=== PATIENT | male | born 1955 | race Caucasian/White ===

== ENCOUNTER 2025-01-08 21:03 | Inpatient (IN) | payer MEDICARE, SELFPAY ==
[2025-01-08] VITALS (9 sets, daily range): BP systolic 106–134; BP diastolic 85–96; BMI 25.4
--- NOTE | 2025-01-08 16:51 | ED.GENMED ---
History of Present Illness
General
Chief Complaint: Breathing Problem
Time Seen by Provider: 01/08/25 16:43
History of Present Illness
History of Present Illness:
Patient presents to the emergency department with shortness of breath. Symptoms started around 2 PM. He felt his oxygen tank was no longer working. States he has a history of severe emphysema and he is chronically on 3 to 4 L oxygen. States he
was feeling very lightheaded and dyspneic. Denies any chest pain. No leg swelling. Denies fevers or chills productive cough.
Phy Exam
Physical Exam
Physical Exam:
GENERAL APPEARANCE: NAD, disheveled
EYES lids/conjunctiva normal
EARS/NOSE/THROAT Mucous membranes moist, uvula midline without oral pharyngeal erythema, exudate or swelling
HEAD/NECK normocephalic atraumatic, neck is supple.
RESPIRATORY lungs clear to auscultation though very diminished breath sounds bilaterally. Saturating well on 5 L nasal cannula
CARDIAC Regular tachycardia, no edema.
ABDOMINAL Soft, ND/NT. No pulsatile masses on exam, rebound tenderness, Greene sign or pain over Mcburney's point.
MUSCLES/EXTREMITIES No abnormal range of motion, no swelling.
SKIN Warm, pink and dry. No rashes
NEUROLOGICAL Speech is clear and appropriate. Normal level of consciousness. 5/5 strength in all extremities.
PSYCH Normal mood and affect. Judgement/competence is appropriate
Scores
Heart Failure Risk
Heart Failure Risk Score: Not Applicable
Course
Orders/Labs/Results
Orders:
Orders
01/08/25 Dinner
Regular
At Your Request: Limited Participation
01/08/25 16:39
Electrocardiogram (*1) Urgent
Reason for Study: Shortness of Breath
EKG- Treatment ONCE
CXR [CR Chest Portable - 1 View] Urgent
Comment:
Reason For Exam: sob
Reason Study Needs to be Portable: Patient Unstable
01/08/25 16:46
COVID-19 Antigen Urgent
Source: Nasal Swab
Complete Blood Count/With Diff Urgent
Comprehensive Metabolic Panel Urgent
Lipase Urgent
Comment: ADD ON
Influenza A+B Rapid Molecular Urgent
HUGO Source: Nasal Swab
Specimen Description:
01/08/25 16:51
Ipratropium/Albuterol Sulfate [Duoneb] 3 ml INH R NOW ONE
01/08/25 16:55
D-Dimer Urgent
01/08/25 17:30
Add On- LAB Urgent
Tests Added?: lipase
01/08/25 17:59
CT Chest PE Study Urgent
Reason For Exam: sob, +ddimer
01/08/25 19:02
MethylPREDNISolone PF [Solu-Medrol Pf] 125 mg IV NOW STA
01/08/25 19:16
Azithromycin 500 mg/250 ml [Zithromax Infusion] 500 mg in 250 ml IV NOW
CefTRIAXone [Rocephin] 1,000 mg IV NOW STA
01/08/25 19:29
Lactate Level [Lactic Acid] Urgent
Blood Culture Q30M
HUGO Source: Blood/Venous
Specimen Description:
01/08/25 19:31
Blood Culture Q30M
HUGO Source: Blood/Venous
Specimen Description:
01/08/25 19:45
Sterile Water [Sterile Water For Injection] 10 ml .ROUTE .STK-MED ONE
01/08/25 20:45
Admit/Transfer Patient As Directed
Co-Sign Provider:
Level of Care: Inpatient admission
Assign to:: Telemetry
Physician / Group: denisha jesus
Diagnosis: RUl pna, hypoxia, acute/chronic abd pain
Reason for Telemetry: Arrhythmia
Date to Stop Telemetry: 01/11/25
Time to Stop Telemetry: 11:00
Reason for Hospitalization: RUl pna, hypoxia, acute/chronic abd pain
Expected length of stay greater than two midnights?: Yes
ELOS- Estimated Length of Stay in days: 4
I certify the patient meets the requirements for IP care: Yes
Code Status As Directed
Resuscitation Status: Full Code
01/08/25 20:53
PRN Pain Medication Management As Directed
May give lesser potent ordered pain med per pt: Yes
preference::
Protocol:: Medication orders for pain may be administered in a
manner that supports deferring to patient preference
when the pt is:
- Requesting an ordered lesser potent pain medication.
Least to most potent pain medications are defined
as: acetaminophen < NSAID < tramadol < opioids
(morphine, oxycodone, hydromorphone).
- Requesting a lesser dose of the same medication IF
ORDERED.
- Requesting a less intrusive route of administration
if both routes are prescribed by the provider (PO <
IV).
01/08/25 21:00
0.9% Sodium Chloride 1000 ml [Nss] 1,000 ml IV 80 mls/hr
01/08/25 21:49
Acetaminophen [Tylenol] 650 mg PO Q4HPRN PRN
Ipratropium/Albuterol Sulfate [Duoneb] 3 ml INH R Q4HPRN PRN
01/08/25 21:49
Activity As Directed
Activity Level: As Tolerated
Intake/ Output As Directed
Frequency: Per unit guidelines
Vital Signs As Directed
Frequency: Per unit guidelines
Weight As Directed
Frequency: Daily
Incentive Spirometry [Rx Incentive Spirometry] [RESP] Routine
Frequency: q1h while awake
O2 Therapy [RESP] Routine
Nasal Cannula Liter Flow: 4 LPM
Titrate/Wean O2 to maintain O2 sat greater than (%): 90
Special Instructions: Patient on chronic 4 L
Pulse Ox/spot Check [RESP] Routine
Quantity: 1
Rx Incentive Spirometry [RESP] Routine
Frequency: q1h while awake
Ot Eval And Treat Routine
Pt Eval And Treat Routine
Activity Level: As Tolerated
DX Deep Vein Thrombosis Video Routine
01/09/25 06:00
Abdomen/Pelvis w Contrast CT [CT Abd/pelvis W Iv Cont] IN AM
Comment:
Reason For Exam: acute /chronic abd pain
Complete Blood Count/With Diff IN AM
Comprehensive Metabolic Panel IN AM
Hgba1c [Glycohemoglobin (HgbA1c)] IN AM
01/09/25 18:00
Enoxaparin Sodium [Lovenox] 40 mg SC QPM
01/09/25 20:00
Azithromycin 500 mg/250 ml [Zithromax Infusion] 500 mg in 250 ml IV Q24H
CefTRIAXone [Rocephin] 1,000 mg IV Q24H
01/10/25 06:00
Complete Blood Count/With Diff IN AM
Comprehensive Metabolic Panel IN AM
01/11/25 06:00
Complete Blood Count/With Diff IN AM
Comprehensive Metabolic Panel IN AM
01/11/25 11:00
DC Protocol for Telemetry ONCE
01/12/25 06:00
Complete Blood Count/With Diff IN AM
Comprehensive Metabolic Panel IN AM
Abnormal Lab Results
01/08/25 01/08/25
16:46 16:55
WBC 11.8 H 10^3/uL
(4.8-10.8)
RBC 4.65 L 10^6/uL
(4.70-6.10)
MCV 94.8 H fL
(80.0-94.0)
MCHC 30.4 L g/dL
(33.0-37.0)
Absolute Neuts (auto) 10.5 H 10^3/uL
(1.4-6.5)
Absolute Lymphs (auto) 0.5 L 10^3/uL
(1.2-3.4)
Neutrophils % 89.3 H %
(42.2-75.2)
Lymphocytes % 3.9 L %
(20.5-51.1)
D-Dimer 1.16 H ug/mlFEU
(0.00-0.50)
Chloride 91 L mmol/L
(98-107)
Carbon Dioxide 41 H mmol/L
(22-30)
Glucose 197 H mg/dl
(70-99)
01/08/25 16:46
01/08/25 16:46
Vital Signs
Initial and Last Documented VS:
Initial Vital Signs
Pulse Resp Pulse Ox
118 24 99
01/08/25 16:40 01/08/25 16:40 01/08/25 16:40
Last Documented Vital Signs
Temp Pulse Resp BP Pulse Ox
98.3 F 105 18 112/86 96
01/08/25 21:43 01/08/25 21:43 01/08/25 21:43 01/08/25 21:43 01/08/25 21:43
*Pulse Oximetry
SaO2: 99
Oxygen Mode of Delivery: Non-rebreather mask
Patient hypoxic: yes
*Critical Care Note
Total Time (30-74mins, 75-104mins- exclusive of procedures): Not Applicable
ED Attending Note
ED Attending Note
ED Attending Note:
hx of severe emphysema on 4L NC O2 at baseline
presents with worsening shortness of breath, found to be 64% on 4L NC
workup notable for CTA negative for PE, but showing pneumonia in the RUL
given nebs, solumedrol and ceftriaxone/azithro for community acquired pneumonia
-
Portions of this chart may have been created with voice recognition software.� Occasional wrong word or��sound alike� substitutions may have occurred due to the inherent limitations of voice recognition software.
Discharge Plan
Departure
Patient Disposition: Admit
Date of Disposition: 01/08/25
Time of Disposition: 20:02
Presentation/result/management discussed w/ accepting MD/DO: Hospitalist
Discharge Problem:
Emphysema lung, CAP (community acquired pneumonia)
Interventions
Interventions:
*Risk Screen - Suicide Last Done: 01/08/25 22:29
*General Assessment Last Done: 01/08/25 21:44
*Neglect/Abuse Screening Last Done: 01/08/25 16:40
*ED- Fall Risk Assessment Last Done: 01/08/25 21:44
*ED COVID-19 Vaccine History Last Done: 01/08/25 22:29
*ED Influenza Vaccine History Last Done: 01/08/25 16:40
*Nursing Disposition Last Done: 01/08/25 21:43
ED- Cardiac Assessment Last Done: 01/08/25 16:52
ED- Pulmonary Assessment Last Done: 01/08/25 16:52
Discharge Date and Time
Discharge Date/Time: 01/08/25 21:45
[2025-01-08] MEDS: DUONEB 3 ML INH (17:02)
[2025-01-08 17:13] LABS: COVID-19 Antigen Negative (Negative)
[2025-01-08 17:17] LABS: ALT (SGPT) 23 U/L (0-50); AST (SGOT) 30 U/L (17-59); Albumin 4.0 g/dl (3.5-5.0); Alkaline Phosphatase 72 U/L (38-126); Blood Urea Nitrogen 17 mg/dl (9-20); Calcium 9.3 mg/dl (8.4-10.2); Chloride 91 mmol/L (98-107); Estimated Creatinine Clearance 98 ml/min; Glucose 197 mg/dl (70-99); Potassium 4.4 mmol/L (3.5-5.1); Sodium 138 mmol/L (135-145); Total Protein 7.3 g/dl (6.3-8.2); eGFR > 60.00
[2025-01-08 17:28] LABS: Carbon Dioxide 41 mmol/L (22-30)
[2025-01-08 17:31] LABS: Hematocrit 44.1 % (39.0-52.0); Hemoglobin 13.4 g/dL (13.0-18.0); Mean Corp Hgb Conc. 30.4 g/dL (33.0-37.0); Mean Corpuscular Volume 94.8 fL (80.0-94.0); Nucleated Red Blood Cells % 0 % (-); Platelet Count 203 10^3/uL (130-400); Red Cell Dist. Width 13.1 % (11.5-14.5)
[2025-01-08 17:47] LABS: D-Dimer 1.16 ug/mlFEU (0.00-0.50)
[2025-01-08 17:53] LABS: Lipase 45 U/L (23-300)
[2025-01-08] MEDS: SOLU-MEDROL PF 125 MG IV (19:13)
[2025-01-08] MEDS: ZITHROMAX INFUSION 250 IV (19:48)
[2025-01-08] MEDS: ROCEPHIN 1000 MG IV (19:48)
--- NOTE | 2025-01-08 20:18 | HPS.HSE ---
Addendum entered and electronically signed by Deidra Alfaro MD 01/08/25 21:21:
This is an addendum to H&P written by Nelida Bolanos on 01/08/2025. �Patient seen and examined independently with SQL SS[employer] DEVELOPER.
69-year-old male past medical history of severe COPD on 4 L chronic oxygen, hypertension, HLD, presenting with shortness of breath and hypoxic to 64% today. �He was feeling lightheadedness. �No chest pain. �No leg swelling. �No fevers or chills. �No
cough.
Patient also having severe left to right abdominal pain for several months. �Patient unable to get at the house to get evaluated. �Has been having intermittent constipation
Being evaluated for [facility] transplant. �Colonoscopy was attempted 3 times but patient was never properly evacuated so lung transplant could not be pursued.
Vital signs showed tachycardia up to 113. �Hypoxic requiring 6 L oxygen
Labs show leukocytosis 11.8.
Chest x-ray shows nodular density within the right lung peribronchial thickening suggesting small airway pneumonitis/bronchitis. �CT PE shows multiple small nodular opacities within the anterior aspect of the right upper lobe which is likely
pneumonia. �Severe changes of emphysema. �Volume loss of his left hemithorax with bands of scarring/chronic atelectasis of left lung.
Patient with pneumonia. �Ceftriaxone/azithromycin. �Given steroids and DuoNebs in the emergency room but will hold off on further steroids.
Check CT abdomen pelvis to evaluate for chronic abdominal pain with IV contrast in the morning since he already received IV contrast.
Original Note:
Family Physician
-
Family Physician: * NONE
Chief Complaint
-
Hypoxia
History of Present Illness
69-year-old male complaining of shortness of breath that started around 2 PM this afternoon after walking to the bathroom. He reports he started to feel dizzy so he sat down on the toilet. He reports feeling very lightheaded. He is on chronic 3
to 4 L of oxygen due to severe emphysema. His states he has been out of his Breztri inhaler due to needing a prior Auth but has been unable to get out of his apartment to see his doctor. He reports he has been so weak he has been unable to
get out of his third floor condo for the last close to 1 year. He was following at [facility] transplant but needed colonoscopy. He had 3 attempts, but his bowel was not cleaned out so they were unable to clear him for transplant surgery. He
states he has been having abdominal pain in the left lower quadrant radiating to his right quadrant anytime he walks or moves this is going on for months. He also reports some changes with bowels including constipation on and off. He denies weight
loss but states he has had weight gain due to inactivity. He was noted to be 64% on 4 L on arrival in the ER. He denies fever, chills, sore throat, cough, headache, chest pain, palpitations,nausea, vomiting, diarrhea, urinary symptoms. He has
past medical history of chronic severe emphysema 3 to 4 L dependent, HTN, HLD
Medical History
Past Medical History
Past Medical History: Reports Other
Additional Past Medical History:
chronic severe emphysema 3 to 4 L dependent
HTN
HLD
Past Surgical History: Reports None
Social History
Tobacco: Former Smoker (40 years 2 to 3 pack a day quit 7 years ago)
Alcohol: None
Drug: None
Personal:
Living: With Family ( brad)
Employment: Disabled
Family History
Family History: Not pertinent
Allergies / Home Medications
Allergies reflects when Allergies were last updated in [employer].
Home Medications with original date entered in [employer]
Allergy/Medication List:
Allergies
Allergy/AdvReac Type Severity Reaction Status Date / Time
ibuprofen Allergy Anaphylaxis Verified 01/08/25 20:59
Home Medications
Breztri Aerosphere 2 puff inhalation DAILY 01/08/25
albuterol sulfate 90 mcg/actuation aerosol inhaler 90 mcg inhalation DAILY 01/08/25
diltiazem HCl 240 mg capsule,extended release 24 hr 240 mg PO DAILY 01/08/25
hydrochlorothiazide 12.5 mg tablet 12.5 mg PO DAILY 01/08/25
potassium chloride 10 meq PO DAILY 01/08/25
rosuvastatin 10 mg tablet 10 mg PO HS 01/08/25
Review of Systems
-
History Source: Patient and Family ( brad along with friend at bedside)
A 12 point ROS was completed and negative except as noted: Yes
Constitutional: Reports Weight Gain and Fatigue; Denies Fever or Chills
EENT: Denies Sore Throat or Runny Nose
Respiratory: Reports Trouble Breathing; Denies Cough or Hemoptysis
Cardiac: Denies Chest Pain, Diaphoresis, Palpitations or Syncope
Abdomen/GI: Reports Abdominal Pain (On and off left to right lower quadrant); Denies Nausea, Vomiting, Diarrhea, Constipated, Bloody Stools or Black Stools
: Denies Dysuria, Frequency, Flank Pain, Incontinence or Difficulty Voiding
Musculoskeletal: Denies Joint Pain or Edema
Skin: Denies Itching or Rash
Neurological: Denies Dizzy or Headache
Endocrine: Reports No Symptoms
Hematologic/Lymphatic: Reports No Symptoms
Psych: Reports Calm
Physical Exam
Vital Signs
Vital Signs
Pulse Resp BP Pulse Ox
107 22 127/85 94
01/08/25 19:45 01/08/25 19:45 01/08/25 19:00 01/08/25 19:45
Physical Exam
General: Conversant; No Fever or Chills
HEENT: NormoCephalic, Anicteric, PERRLA, [place] Conjunctivae, No Ptosis and Oxygen (6 L)
Respiratory: Rhonchi (Right upper lung otherwise diminished bilaterally); No Wheezes or Rales
Cardiac: S1/S2 and Regular Rhythm; No Murmur, Rub, Gallop or Peripheral Edema
Breast: Deferred by me
GI: Soft, Non Distended, Normal Bowel Sounds, Tender (Across left to right abdomen, small ventral soft hernia present nontender) and No Hepatosplenomegaly
Rectal: Deferred by Provider
Genito-urinary: Deferred by me
Musculoskeletal: No Clubbing, No Cyanosis and No Edema
Skin: Warm and Dry; No Rash or Jaundice
Neuro: AO x 3, No Motor Deficits, Nonfocal/grossly intact, Cranial Nerves Intact and No Sensory Deficits; No Slurred Speech, Facial Droop, Tremors or Sedated
Psych: Calm
Laboratory Results
-
01/08/25 16:46
01/08/25 16:46
Laboratory Results
Lactic Acid 1.2 mmol/L (0.7-2.0) 01/08/25 19:29
Total Bilirubin 1.3 mg/dl (0.2-1.3) 01/08/25 16:46
AST 30 U/L (17-59) 01/08/25 16:46
ALT 23 U/L (0-50) 01/08/25 16:46
Alkaline Phosphatase 72 U/L (38-126) 01/08/25 16:46
Lipase 45 U/L (23-300) 01/08/25 16:46
Impression/Plan
-
Impression/plan:
Admit to [facility]
#Acute Hypoxic respiratory failure secondary to Right upper lobe pneumonia with Severe Emphysema on chronic 4 L nasal cannula
#Former smoker 40-year 2 to 3 pack a day quit 7 years ago
Presented to ER 64% on 4 L nasal cannula currently 6 L nasal cannula satting at 94%
WBC 11.8 with left shift, HR 107, BP 127/85
COVID influenza negative
Was given steroids in ER will hold on further steroids due to no wheezing, cough or emphysema exacerbation
- Blood cultures x 2
- IV Rocephin/Zithromax
-Continue DuoNebs as needed
-Incentive spirometry
- Follow CBC, CMP
CT PE study: Negative for pulmonary embolism
severe changes of emphysema
multiple small nodular opacities anterior aspect right upper lobe likely pneumonia
gastric fundal diverticulum left upper quadrant, fatty infiltration liver
EKG sinus tach 160 bpm, QTc 439 MS left posterior fascicular block no previous EKGs
#Acute on chronic abdominal pain
Will check CT abdomen pelvis with IV contrast in a.m. due to receiving IV contrast for CT PE this evening
-Will give IV NSS
-No current concerns for an acute abdomen
#Mild hyperglycemia
Blood sugar 197, check HgbA1c
#HTN
BP stable 127/87
-Continue Cardizem to 40 mg daily, HCTZ 12.5 mg daily, KCl 10 mEq
#HLD
Continue Crestor 10 mg at bedtime
DVT prophylaxis
Subcu Lovenox
Full code
--- NOTE | 2025-01-08 22:15 | PTCARENOTE ---
Pt arrived to room 418-02. Pt transferred from stretcher to bed. Pt AAOx3, VSS. Pt on 6L O2. Pt oriented to room, call hernández placed within reach.
[2025-01-08] MEDS: NSS 1000 IV (22:43)
[2025-01-09] VITALS (7 sets, daily range): BP systolic 115–146; BP diastolic 66–93; O2SAT 86; BMI 25.4
[2025-01-09 08:07] LABS: Hematocrit 42.0 % (39.0-52.0); Hemoglobin 12.5 g/dL (13.0-18.0); Mean Corp Hgb Conc. 29.8 g/dL (33.0-37.0); Mean Corpuscular Volume 97.7 fL (80.0-94.0); Nucleated Red Blood Cells % 0 % (-); Platelet Count 191 10^3/uL (130-400); Red Cell Dist. Width 13.0 % (11.5-14.5)
[2025-01-09 08:35] LABS: ALT (SGPT) 21 U/L (0-50); AST (SGOT) 31 U/L (17-59); Albumin 3.7 g/dl (3.5-5.0); Alkaline Phosphatase 64 U/L (38-126); Blood Urea Nitrogen 18 mg/dl (9-20); Calcium 9.0 mg/dl (8.4-10.2); Chloride 91 mmol/L (98-107); Estimated Creatinine Clearance 98 ml/min; Glucose 129 mg/dl (70-99); Potassium 4.6 mmol/L (3.5-5.1); Sodium 137 mmol/L (135-145); Total Protein 6.5 g/dl (6.3-8.2); eGFR > 60.00
[2025-01-09] MEDS: NSS 1000 IV (09:01)
[2025-01-09 09:19] LABS: Carbon Dioxide 40 mmol/L (22-30)
[2025-01-09 10:53] LABS: Glycohemoglobin (HgbA1c) 5.4 % (4.0-5.6)
[2025-01-09] MEDS: OMNIPAQUE 50 ML PO (14:05)
--- NOTE | 2025-01-09 14:25 | CM ---
Patient seen at bedside with physician on . Patient states that he lives in a 3 story condo with his dog and sister. Patient PCP is Dr. Harry and he uses the [facility] in [facility]. Patient states that he has home O2 from [facility]. Patient is
on 3.5 liters/ 4 liters when walking. Patient has not been able to go out of the home to follow up at PCP care. CM will continue to follow for discharge planning needs.
Plan; home with VN; watch for increase in home O2 needs vs SNF
--- NOTE | 2025-01-09 14:30 | CON.PUL ---
Consultation
Consultation Request
Date/Time Consultation Requested: 01/09/25
Date/Time Consultation Performed: 01/09/25
Performing Provider: Francoise
Reason for Consultation: Hypoxemia
Medical History
-
History of Present Illness:
69-year-old male past medical history of severe COPD on 4 L chronic oxygen, hypertension, HLD, presenting with shortness of breath and hypoxic to 64% today. �He was feeling lightheadedness. �Patient also having severe left to right abdominal pain
for several months. �Patient unable to get at the house to get evaluated. �Has been having intermittent constipation.
Being evaluated for [facility] transplant. �Colonoscopy was attempted 3 times but patient was never properly evacuated so lung transplant could not be pursued. He was last seen about 1-2 years ago.
In ER, vital signs showed tachycardia up to 113. �Hypoxic requiring 6 L oxygen. Labs show leukocytosis 11.8.
Chest x-ray shows nodular density within the right lung peribronchial thickening suggesting small airway pneumonitis/bronchitis. �CT PE shows multiple small nodular opacities within the anterior aspect of the right upper lobe which is likely
pneumonia. �Severe changes of emphysema. �Volume loss of his left hemithorax with bands of scarring/chronic atelectasis of left lung.
Patient with pneumonia. �Ceftriaxone/azithromycin. �Given steroids and DuoNebs in the emergency room.
Past Medical History
Past Medical History: Other (see list below)
Social History
Tobacco: Former Smoker
Alcohol: None
Drug: None
Family History
Family History: Reviewed & Not Pertinent
Allergies / Home Medications
Allergies
Allergy/AdvReac Type Severity Reaction Status Date / Time
ibuprofen Allergy Anaphylaxis Verified 01/08/25 20:59
Home Medications
�Medication �Instructions �Recorded �Confirmed �Last Taken �Type
Breztri Aerosphere 2 puff inhalation DAILY 01/08/25 01/08/25 Unknown History
Lung/Breathing Issues
albuterol sulfate 90 mcg/actuation 90 mcg inhalation DAILY 01/08/25 01/08/25 01/08/25 10:00 History
aerosol inhaler Lung/Breathing Issues
diltiazem HCl 240 mg 240 mg PO DAILY Blood Pressure 01/08/25 01/08/25 01/08/25 09:00 History
capsule,extended release 24 hr
hydrochlorothiazide 12.5 mg tablet 12.5 mg PO DAILY Blood Pressure 01/08/25 01/08/25 01/08/25 09:00 History
potassium chloride 10 meq PO DAILY Supplement 01/08/25 01/08/25 01/08/25 09:00 History
rosuvastatin 10 mg tablet 10 mg PO HS High Cholesterol 01/08/25 01/08/25 01/07/25 21:00 History
Review of Systems
-
History Source: Patient
All other systems: Negative unless noted
Vitals / Labs / Diagnostic Testing
Vital Signs
Temp Pulse Resp BP Pulse Ox
97.7 F 106 17 132/93 97
01/09/25 11:49 01/09/25 11:49 01/09/25 11:49 01/09/25 11:49 01/09/25 11:49
Lab Data
01/09/25 07:29
01/09/25 07:29
Microbiology
01/08/25 16:46 Nasal Swab Influenza Types A & B (MIRIAM) - Final
Negative for Influenza A & B, NAAT
Negative results must be combined with clinical observations
and patient history.
Nucleic Acid Amplification test (NAAT)performed on the
[employer] platform.
Diagnostic Testing:
Physical Exam
-
HEENT: Normocephalic, Anicteric and Moist Mucous Membranes
Cardiovascular: S1/S2 and Regular Rhythm
Respiratory: Clear (poor air movement, decreased BL overall) and Non-Labored Respirations
GI: Soft, Non Distended and Non Tender
Neurology: Awake, Alert, Oriented and No Motor Deficits
Skin: Warm, Dry and Good Color
General: Respiratory Distress (mild-mod, SOB with poor air movement) and Other (NAD)
Assessment
-
69-year-old male past medical history of severe COPD on 4 L chronic oxygen, hypertension, HLD, presenting with shortness of breath and hypoxic to 64% today. �He was feeling lightheadedness. �Patient also having severe left to right abdominal pain
for several months. �Patient unable to get at the house to get evaluated. �Has been having intermittent constipation.
Being evaluated for [facility] transplant. �Colonoscopy was attempted 3 times but patient was never properly evacuated so lung transplant could not be pursued. He was last seen about 1-2 years ago. In ER, vital signs showed tachycardia up to 113.
�Hypoxic requiring 6 L oxygen. Labs show leukocytosis 11.8. Chest x-ray shows nodular density within the right lung peribronchial thickening suggesting small airway pneumonitis/bronchitis. �CT PE shows multiple small nodular opacities within the
anterior aspect of the right upper lobe which is likely pneumonia. �Severe changes of emphysema. �We are consulted for evaluation.
Acute on chronic hypoxemia, baseline use of 4L--placed on 6L
Severe end stage COPD/Emphysema, evaluated at [facility] for transplant
AE COPD
Possible PNA
Sinus tachycardia
Acute on chronic SOB
Met alkalosis, bicarb 40
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
Former smoker, 1PPD for 20 years then 2PPD for 20 more years, quit 5-10 years ago (total PY = 60)
CAD, minimal in 1 artery per patient during transplant w/u, no records
HTN
HLD
Plan
Hypoxemia noted on arrival, O2 tom 60s, he is on baseline use of 4L, placed on 6L
Wean as tolerated to baseline
Given met alk, will check ABG to r/o hypercarbia
Prior history of lung disease is noted including severe end stage COPD/emphysema
Last seen at [facility] in the past 1-2 years but did not proceed with further testing to obtain transplant
Will request records
Suspect patient has AE COPD and possible PNA but difficult to tell based on limited lung tissue on CT
The emphysema is so advanced and severe that these findings are limited
Will check PCT and proBNP to r/o
Received IV dose of steroids in ER, will continue daily dosing
Cardiac w/u at [facility] reportedly good
Will view records
H/o HTN, he states he had minimal CAD in 1 artery
Smoking history noted--60 PY, quit 7 years ago
Continued smoking cessation encouraged
We did discuss that if he does not improve with more time on IV abx and steroids that we would need to discuss end of life discussions
If he improves, he would need to see [facility] again as OP to qualify for transplant
Will need outpatient pulmonary evaluation in their office for PFTs and 6MWT
Reviewed with patient, sister and on the phone at bedside
We will follow
Diagnostic Data
Chest X-Ray: 01/08/25- Volume loss of the left hemithorax with shift of the mediastinum toward the left. Bands of increased opacity within the left mid to lower lung, most likely representing scarring and/or chronic atelectasis. The right lung
appears hyperinflated, findings suggestive of emphysema. Subtle small nodular density suggested within the right lung with peribronchial thickening, suggesting the possibility of small airway pneumonitis and/or bronchitis. Mild blunting of the left
lateral costophrenic angle is most likely chronic pleural thickening, although a small left pleural effusion is also possible. Overall cardiac silhouette size appears within normal limits with no findings to suggest pulmonary edema. Mild
dextroconvex scoliosis centered in the midthoracic spine.
CT Scan: CHEST 01/08/25- Examination is negative for pulmonary embolism. Volume loss of the left hemithorax with bands of scarring/chronic atelectasis within the left lung. Severe changes of emphysema. Multiple small nodular opacities within the
anterior aspect of the right upper lobe, which is likely pneumonia. 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 Fatty infiltration the liver.
Echo:
PFT's:
Reports and relevant images were personally reviewed.
Total time spent on this consultation __61__ minutes which includes review of history, physical exam, medications, laboratory data, personal review of imaging, extensive review of outpatient records, discussion with care team and respiratory therapy.
--- NOTE | 2025-01-09 15:05 | W.PN.HOSP.TC ---
Today's Communication/Plan
-
steroids
pulm consult
Assessment / Plan
Assessment / Plan
pt is a 69 year old male
Acute on chronic Hypoxic respiratory failure secondary to Right upper lobe pneumonia with Severe Emphysema on chronic 4 L nasal cannula (Former smoker 40-year 2 to 3 pack a day quit 7 years ago)--covid/flu neg--would start standing IV steroids--cont
rocephin/zmax--follow blood cultures--consult pulm--consider ABG--CT scan without pulm embolism but with severe emphysema (was considered for lung transplant at [facility] but backed out at the last minute)
Acute on chronic abdominal pain--Will check CT abdomen pelvis with IV contrast in a.m. due to receiving IV contrast for CT PE this evening--consider stopping IVF
Mild hyperglycemia--Blood sugar 197, check HgbA1c
Essential HTN--Continue Cardizem to 40 mg daily, HCTZ 12.5 mg daily, KCl 10 mEq
HLD--Continue Crestor 10 mg at bedtime
DVT proph--Subcu Lovenox
code status--Full code
Anticipated Discharge: > 48 hours
Subjective/Interval History
-
Date of Service: January 09, 2025
pt c/o inability to breathe since O2 decreased
Objective Data
-
Labs:
Laboratory Results
01/09/25 01/09/25
07:29 14:32
WBC 5.5
Hgb 12.5 L
Hct 42.0
Plt Count 191
HCO3 Pending
Sodium 137
Potassium 4.6
Chloride 91 L
Carbon Dioxide 40 H
BUN 18
Creatinine 0.8
Glucose 129 H
Calcium 9.0
Total Bilirubin 0.7
AST 31
ALT 21
Alkaline Phosphatase 64
Vital Signs:
max temp for 24 hours
01/08/25
22:50
Temp 99.8 F
Vital Signs
Temp Pulse Resp BP Pulse Ox
97.7 F 106 17 132/93 97
01/09/25 11:49 01/09/25 11:49 01/09/25 11:49 01/09/25 11:49 01/09/25 11:49
Review of Systems
-
All other systems: Reviewed and negative
Respiratory: Reports Trouble Breathing
Physical Exam
-
General: Well Developed, Well Nourished and Respiratory Distress
HEENT: Normocephalic, Atraumatic and Oxygen (4L)
Respiratory: Decreased Breath Sounds (very poor air movement throughout)
Cardiac: Regular Rhythm and S1/S2; Negative Murmur
GI: Soft, Nontender, Nondistended and Normal Bowel Sounds
Musculoskeletal: No Clubbing, No Cyanosis and No Edema
Skin: Warm
Neuro: Awake
[2025-01-09] MEDS: DUONEB 3 ML INH ×2 (15:17→19:32)
--- NOTE | 2025-01-09 16:30 | PTCARENOTE ---
01/09- Patient seen on stretcher c/o SOB. He just transferred onto stretcher from bed to go to a test. His RN states he does have hypoxic episodes upon movement and exertion. Pursed lip breathing, face flushed; GJ=363, POX=79% on NC on 6L.
Changed to Non-rebreather on 15L temporarily. During this time POX=94% with HR=97. +PulsesX4; Cap refill<3sec. Lungs diminished BL. Patient's RN aware. Notified Physician.
[2025-01-09] MEDS: DECADRON 4 MG IV ×2 (17:21→23:26)
[2025-01-09] MEDS: ZITHROMAX 500 MG PO (17:21)
[2025-01-09] MEDS: LOVENOX SC (17:30)
[2025-01-09] MEDS: PULMICORT 0.5 MG INH (19:32)
[2025-01-09] MEDS: STERILE WATER FOR INJECTION 10 ML IV (21:04)
[2025-01-09] MEDS: ROCEPHIN 1000 MG IV (21:05)
[2025-01-10] VITALS (8 sets, daily range): BP systolic 116–151; BP diastolic 73–106; BMI 26.3
[2025-01-10 00:13] LABS: Venous Blood Gas B.E. 14.9 mmol/L (-4 to +4); Venous Blood Gas O2 Sat % 99.8 %
[2025-01-10 00:16] LABS: Venous Blood Gas O2 Therapy O2
[2025-01-10 00:38] LABS: Procalcitonin 0.33 ng/ml (0.0-0.25)
[2025-01-10] MEDS: DUONEB 3 ML INH ×4 (07:19→19:28)
[2025-01-10] MEDS: PULMICORT 0.5 MG INH ×2 (07:19→19:28)
[2025-01-10 07:50] LABS: Hematocrit 37.3 % (39.0-52.0); Hemoglobin 11.2 g/dL (13.0-18.0); Mean Corp Hgb Conc. 30.0 g/dL (33.0-37.0); Mean Corpuscular Volume 95.6 fL (80.0-94.0); Nucleated Red Blood Cells % 0 % (-); Platelet Count 187 10^3/uL (130-400); Red Cell Dist. Width 13.2 % (11.5-14.5)
[2025-01-10] MEDS: DECADRON 4 MG IV ×2 (08:17→16:41)
[2025-01-10] MEDS: ZITHROMAX 500 MG PO (08:17)
[2025-01-10 08:18] LABS: ALT (SGPT) 18 U/L (0-50); AST (SGOT) 30 U/L (17-59); Albumin 3.3 g/dl (3.5-5.0); Alkaline Phosphatase 54 U/L (38-126); Blood Urea Nitrogen 22 mg/dl (9-20); Calcium 8.5 mg/dl (8.4-10.2); Chloride 92 mmol/L (98-107); Estimated Creatinine Clearance 98 ml/min; Glucose 129 mg/dl (70-99); Magnesium 2.1 mg/dl (1.6-2.3); Potassium 4.3 mmol/L (3.5-5.1); Sodium 136 mmol/L (135-145); Total Protein 5.9 g/dl (6.3-8.2); eGFR > 60.00
[2025-01-10 09:37] LABS: Carbon Dioxide 42 mmol/L (22-30)
--- NOTE | 2025-01-10 10:06 | W.PN.PUL3 ---
Today's Communication / Plan
-
Remains the same, no clinical change from yesterday
Continue current treatment as is
We had briefly discussed the severity of his condition but if he clinically deteriorates [facility] discussion would be appropriate
Assessment
-
69-year-old male past medical history of severe COPD on 4 L chronic oxygen, hypertension, HLD, presenting with shortness of breath and hypoxic to 64% today. �He was feeling lightheadedness. �Patient also having severe left to right abdominal pain
for several months. �Patient unable to get at the house to get evaluated. �Has been having intermittent constipation.
Being evaluated for [facility] lung transplant. �Colonoscopy was attempted 3 times but patient was never properly evacuated so lung transplant could not be pursued. He was last seen about 1-2 years ago. In ER, vital signs showed tachycardia up to 113.
�Hypoxic requiring 6 L oxygen. Labs show leukocytosis 11.8. Chest x-ray shows nodular density within the right lung peribronchial thickening suggesting small airway pneumonitis/bronchitis. �CT PE shows multiple small nodular opacities within the
anterior aspect of the right upper lobe which is likely pneumonia. �Severe changes of emphysema. �We are consulted for evaluation.
Acute on chronic hypoxemia, baseline use of 4L--placed on 6L
Severe end stage COPD/Emphysema, evaluated at [facility] for transplant
AE COPD
Possible PNA
Sinus tachycardia
Acute on chronic SOB
Met alkalosis, with chronic hypercarbia noted-compensated
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
Former smoker, 1PPD for 20 years then 2PPD for 20 more years, quit 5-10 years ago (total PY = 60)
CAD, minimal in 1 artery per patient during transplant w/u, no records
HTN
HLD
Plan
Hypoxemia noted on arrival, O2 tom 60s, he is on baseline use of 4L, placed on 6L
Wean as tolerated to baseline
Given met alk, ABG confirms hypercarbia
Prior history of lung disease is noted including severe end stage COPD/emphysema
Last seen at [facility] in the past 1-2 years but did not proceed with further testing to obtain transplant
Will request records, pending
Suspect patient has AE COPD and possible PNA but difficult to tell based on limited lung tissue on CT
The emphysema is so advanced and severe that these findings are limited
PCT 0.33 with mild elevation, can complete course of abx
proBNP to r/o CHF -- negative
Received IV dose of steroids in ER, will continue daily dosing
Cardiac w/u at [facility] reportedly good
Will view records
H/o HTN, he states he had minimal CAD in 1 artery
Smoking history noted--60 PY, quit 7 years ago
Continued smoking cessation encouraged
We did discuss that if he does not improve with more time on IV abx and steroids that we would need to discuss end of life discussions
If he improves, he would need to see [facility] again as OP to qualify for transplant
Will need outpatient pulmonary evaluation in their office for PFTs and 6MWT
Reviewed with patient, sister and on the phone at bedside
Remains full code
We will follow
Diagnostic Data
Chest X-Ray: 01/08/25- Volume loss of the left hemithorax with shift of the mediastinum toward the left. Bands of increased opacity within the left mid to lower lung, most likely representing scarring and/or chronic atelectasis. The right lung
appears hyperinflated, findings suggestive of emphysema. Subtle small nodular density suggested within the right lung with peribronchial thickening, suggesting the possibility of small airway pneumonitis and/or bronchitis. Mild blunting of the left
lateral costophrenic angle is most likely chronic pleural thickening, although a small left pleural effusion is also possible. Overall cardiac silhouette size appears within normal limits with no findings to suggest pulmonary edema. Mild
dextroconvex scoliosis centered in the midthoracic spine.
CT Scan: CHEST 01/08/25- Examination is negative for pulmonary embolism. Volume loss of the left hemithorax with bands of scarring/chronic atelectasis within the left lung. Severe changes of emphysema. Multiple small nodular opacities within the
anterior aspect of the right upper lobe, which is likely pneumonia. 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 Fatty infiltration the liver.
Echo:
PFT's:
Reports and relevant images were personally reviewed.
Total time spent on this consultation __51__ minutes which includes review of history, physical exam, medications, laboratory data, personal review of imaging, extensive review of outpatient records, discussion with care team and respiratory therapy.
Subjective Data
-
Date of Service:
Date of Service: January 10, 2025
Chief Complaint: Pulmonary Follow Up
Subjective:
No significant improvement since yesterday
Remains on 5L with desats with minimal activity
Objective Data
Data Reviewed
Vital Signs / I&O / Oxygen:
Vital Signs
Temp Pulse Resp BP Pulse Ox
98.4 F 78 16 128/84 98
01/10/25 07:00 01/10/25 07:22 01/10/25 07:22 01/10/25 07:00 01/10/25 07:22
Intake and Output
01/09/25 01/10/25 01/11/25
06:59 06:59 06:59
Intake Total 780 / 780
Output Total 650 / 650
Balance 130 / 130
SaO2 98
Nasal Cannula flow liters per 6
minute
Physical Exam
General: Comfortable and Other (NAD)
HEENT: Normocephalic, Anicteric and Moist Mucous Membranes
Cardiovascular: S1-S2 and Regular Rhythm
Respiratory: Clear (overall diminished) and Non-Labored Respirations
GI: Soft, Non Distended and Non Tender
Neurology: Awake, Alert, Oriented and No Motor Deficits
Skin: Warm and Dry
Labs/Micro/Reports
Lab Data
01/10/25 06:42
01/10/25 06:42
Laboratory Results
01/09/25
14:32
pH Cancelled
pCO2 Cancelled
pO2 Cancelled
HCO3 Cancelled
O2 Delivery Level Cancelled
Microbiology
01/08/25 19:31 Blood/Venous Blood Culture - Preliminary
No Growth in 24 hours- Final report to follow
01/08/25 19:29 Blood/Venous Blood Culture - Preliminary
No Growth in 24 hours- Final report to follow
01/08/25 16:46 Nasal Swab Influenza Types A & B (MIRIAM) - Final
Negative for Influenza A & B, NAAT
Negative results must be combined with clinical observations
and patient history.
Nucleic Acid Amplification test (NAAT)performed on the
[employer] platform.
--- NOTE | 2025-01-10 10:45 | CM ---
CM reviewed chart, patient seen bedside.
CM discussed therapy recommendations of home health-patient unsure at this time and would like to speak to .
Patient confirms he has home O2 through [facility], currently on 6L.
Pulm following.
CM will continue to follow for all d/c planning needs.
Plan; home with , therapy recommending Home Health- patient to decide
--- NOTE | 2025-01-10 14:45 | W.PN.HOSP.TC ---
Today's Communication/Plan
-
cont current management
Assessment / Plan
Assessment / Plan
pt is a 69 year old male
Acute on chronic Hypoxic respiratory failure secondary to Right upper lobe pneumonia with Severe Emphysema on chronic 4 L nasal cannula (Former smoker 40-year 2 to 3 pack a day quit 7 years ago)--covid/flu neg--would start standing IV steroids--cont
rocephin/zmax-- blood cultures no growth--apprec pulm--VBG shows CO2 retention which does match his chronic metabolic alkalosis--CT scan without pulm embolism but with severe emphysema (was considered for lung transplant at [facility] but backed out at
the last minute)--I do not know how much better we can get him....
Acute on chronic abdominal pain--CT abdomen/pelvis without significant issue--stop IVF
Mild hyperglycemia--Blood sugar 197, check HgbA1c
Essential HTN--Continue Cardizem to 40 mg daily, HCTZ 12.5 mg daily, KCl 10 mEq
HLD--Continue Crestor 10 mg at bedtime
DVT proph--Subcu Lovenox
code status--Full code---spoke to patient about whether he wanted to follow up with [facility] for ongoing transplant eval at which time he called his and said 'ask her'--spoke with by phone--plan is to move forward with being evaluated for
transplant (as opposed to hospice, end of life discussions)--explained that they are very different pathways and I wanted to go down the one he wants--they then asked about going to [facility] for eval....
pt seems confused--saying,' you want me to drive down there now?'--explained again, trying to get him as better as we can so he can go as an outpt but he has NO reserve
reviewed CT abdomen with him--he says, when he walks he has lower abdominal pain--it is likely from his poor lungs and poor O2 exchange
Anticipated Discharge: > 48 hours
Subjective/Interval History
-
Date of Service: January 10, 2025
pt sitting up in the bed, arms pushing up on the bed, pt looks uncomfortable with pursed lip breathing
Objective Data
-
Labs:
Laboratory Results
01/10/25
06:42
WBC 6.7
Hgb 11.2 L
Hct 37.3 L
Plt Count 187
Sodium 136
Potassium 4.3
Chloride 92 L
Carbon Dioxide 42 H
BUN 22 H
Creatinine 0.8
Glucose 129 H
Calcium 8.5
Total Bilirubin 0.4
AST 30
ALT 18
Alkaline Phosphatase 54
Vital Signs:
max temp for 24 hours
01/10/25
11:20
Temp 98.8 F
Vital Signs
Temp Pulse Resp BP Pulse Ox
98.8 F 88 17 137/87 94
01/10/25 11:20 01/10/25 11:20 01/10/25 11:20 01/10/25 11:20 01/10/25 11:20
I&O
01/09/25 01/10/25 01/11/25
06:59 06:59 06:59
Intake Total 780 / 780
Output Total 650 / 650
Balance 130 / 130
Review of Systems
-
All other systems: Reviewed and negative
Respiratory: Reports Trouble Breathing
Abdomen/GI: Reports Abdominal Pain (with walking)
Physical Exam
-
General: Well Developed, Well Nourished and No Apparent Distress
HEENT: Normocephalic, Atraumatic and Oxygen
Respiratory: Decreased Breath Sounds
Cardiac: Regular Rhythm and S1/S2; Negative Murmur
GI: Soft, Nontender, Nondistended and Normal Bowel Sounds
Musculoskeletal: No Clubbing, No Cyanosis and No Edema
Skin: Warm
Neuro: Awake
[2025-01-10] MEDS: LOVENOX 40 MG SC (17:38)
--- NOTE | 2025-01-10 18:00 | PTCARENOTE ---
Received patient on transfer from 4th floor via bed wit NRB in use, POx 100%; cannot verify accuracy of vital signs prior to today at 17:30. Transferred to IMU bed x4 assist by governor assembler hydraulic. Oxygen changed to O2 6l with POx 92-95%. Lungs diminished t/o
with very fine exp wheeze; patient denies SOB. Ox3, call hernández at bedside; patient verbalized understanding to call if needing assistance.
[2025-01-10] MEDS: ROCEPHIN 1000 MG IV (19:20)
[2025-01-10] MEDS: STERILE WATER FOR INJECTION 10 ML IV (19:20)
--- NOTE | 2025-01-10 20:39 | PTCARENOTE ---
Assumed care of pt from dayshift RN after change of shift report. Pt is aaox3. using call light appropriately. Pt wearing 6L 02 satting 98%. experiences dyspnea on exertion, currently resting in bed. voiding via urinal. assessment as documented.
call light in reach.
[2025-01-11] VITALS (13 sets, daily range): BP systolic 122–149; BP diastolic 82–94; PULSE 108; O2SAT 87; BMI 27.6
[2025-01-11] MEDS: DECADRON 4 MG IV ×4 (00:08→23:07)
[2025-01-11 04:27] LABS: Hematocrit 41.1 % (39.0-52.0); Hemoglobin 12.6 g/dL (13.0-18.0); Mean Corp Hgb Conc. 30.7 g/dL (33.0-37.0); Mean Corpuscular Volume 92.8 fL (80.0-94.0); Nucleated Red Blood Cells % 0 % (-); Platelet Count 233 10^3/uL (130-400); Red Cell Dist. Width 13.3 % (11.5-14.5)
[2025-01-11 04:42] LABS: ALT (SGPT) 22 U/L (0-50); AST (SGOT) 33 U/L (17-59); Albumin 3.8 g/dl (3.5-5.0); Alkaline Phosphatase 63 U/L (38-126); Blood Urea Nitrogen 19 mg/dl (9-20); Calcium 9.0 mg/dl (8.4-10.2); Chloride 93 mmol/L (98-107); Estimated Creatinine Clearance 98 ml/min; Glucose 144 mg/dl (70-99); Magnesium 2.0 mg/dl (1.6-2.3); Potassium 4.7 mmol/L (3.5-5.1); Sodium 138 mmol/L (135-145); Total Protein 6.8 g/dl (6.3-8.2); eGFR > 60.00
[2025-01-11 04:53] LABS: Carbon Dioxide 39 mmol/L (22-30)
[2025-01-11] MEDS: DUONEB 3 ML INH ×4 (06:31→21:41)
[2025-01-11] MEDS: PULMICORT 0.5 MG INH ×2 (06:32→21:42)
[2025-01-11] MEDS: ZITHROMAX 500 MG PO (08:19)
--- NOTE | 2025-01-11 09:03 | W.PN.PUL3 ---
Today's Communication / Plan
-
Remains at 92% on 6L, desats with minimal activity
IV steroids continued, can start to wean if improving in next 24 hours
PT/OT reconsult for OOB
We discussed following up as OP to [facility] or [facility] for transplant--he will discuss with his
Assessment
-
69-year-old male past medical history of severe COPD on 4 L chronic oxygen, hypertension, HLD, presenting with shortness of breath and hypoxic to 64% today. �He was feeling lightheadedness. �Patient also having severe left to right abdominal pain
for several months. �Patient unable to get at the house to get evaluated. �Has been having intermittent constipation.
Being evaluated for [facility] lung transplant. �Colonoscopy was attempted 3 times but patient was never properly evacuated so lung transplant could not be pursued. He was last seen about 1-2 years ago. In ER, vital signs showed tachycardia up to 113.
�Hypoxic requiring 6 L oxygen. Labs show leukocytosis 11.8. Chest x-ray shows nodular density within the right lung peribronchial thickening suggesting small airway pneumonitis/bronchitis. �CT PE shows multiple small nodular opacities within the
anterior aspect of the right upper lobe which is likely pneumonia. �Severe changes of emphysema. �We are consulted for evaluation.
Acute on chronic hypoxemia, baseline use of 4L--placed on 6L
Severe end stage COPD/Emphysema, evaluated at [facility] for transplant
AE COPD
Possible PNA
Sinus tachycardia
Acute on chronic SOB
Met alkalosis, with chronic hypercarbia noted-compensated
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
Former smoker, 1PPD for 20 years then 2PPD for 20 more years, quit 5-10 years ago (total PY = 60)
CAD, minimal in 1 artery per patient during transplant w/u, no records
HTN
HLD
Plan
Hypoxemia noted on arrival, O2 tom 60s, he is on baseline use of 4L, placed on 6L
Wean as tolerated to baseline
Given met alk, ABG confirms hypercarbia
Prior history of lung disease is noted including severe end stage COPD/emphysema
Last seen at [facility] in the past 1-2 years but did not proceed with further testing to obtain transplant
Will request records, pending
Suspect patient has AE COPD and possible PNA but difficult to tell based on limited lung tissue on CT
The emphysema is so advanced and severe that these findings are limited
PCT 0.33 with mild elevation, can complete course of abx
proBNP to r/o CHF -- negative
Received IV dose of steroids in ER, will continue daily dosing--can start weaning IV dosing if stable in next 24 hours
Cardiac w/u at [facility] reportedly good
Will view records
H/o HTN, he states he had minimal CAD in 1 artery
Smoking history noted--60 PY, quit 7 years ago
Continued smoking cessation encouraged
PT/OT evals
We did discuss that if he does not improve with more time on IV abx and steroids that we would need to discuss end of life discussions
If he improves, he would need to see [facility] again as OP to qualify for transplant
Will need outpatient pulmonary evaluation in their office for PFTs and 6MWT
Reviewed with patient, sister and on the phone at bedside
Remains full code
We will follow
Diagnostic Data
Chest X-Ray: 01/08/25- Volume loss of the left hemithorax with shift of the mediastinum toward the left. Bands of increased opacity within the left mid to lower lung, most likely representing scarring and/or chronic atelectasis. The right lung
appears hyperinflated, findings suggestive of emphysema. Subtle small nodular density suggested within the right lung with peribronchial thickening, suggesting the possibility of small airway pneumonitis and/or bronchitis. Mild blunting of the left
lateral costophrenic angle is most likely chronic pleural thickening, although a small left pleural effusion is also possible. Overall cardiac silhouette size appears within normal limits with no findings to suggest pulmonary edema. Mild
dextroconvex scoliosis centered in the midthoracic spine.
CT Scan: CHEST 01/08/25- Examination is negative for pulmonary embolism. Volume loss of the left hemithorax with bands of scarring/chronic atelectasis within the left lung. Severe changes of emphysema. Multiple small nodular opacities within the
anterior aspect of the right upper lobe, which is likely pneumonia. 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 Fatty infiltration the liver.
Echo:
PFT's:
Reports and relevant images were personally reviewed.
Total time spent on this consultation __51__ minutes which includes review of history, physical exam, medications, laboratory data, personal review of imaging, extensive review of outpatient records, discussion with care team and respiratory therapy.
Subjective Data
-
Date of Service:
Date of Service: January 11, 2025
Chief Complaint: Pulmonary Follow Up
Subjective:
Appears more comfortable today, less anxious
Remains on 6L
Objective Data
Data Reviewed
Vital Signs / I&O / Oxygen:
Vital Signs
Temp Pulse Resp BP Pulse Ox
98.5 F 86 16 126/84 96
01/11/25 07:46 01/11/25 06:35 01/11/25 06:35 01/11/25 06:00 01/11/25 06:35
Intake and Output
01/10/25 01/11/25 01/12/25
06:59 06:59 06:59
Intake Total 780 / 780
Output Total 650 / 650 1500 / 1500
Balance 130 / 130 -1500 / -1500
SaO2 96
Nasal Cannula flow liters per 6
minute
Physical Exam
General: Comfortable and Other (NAD)
HEENT: Normocephalic, Anicteric and Moist Mucous Membranes
Cardiovascular: S1-S2 and Regular Rhythm
Respiratory: Clear (overall diminished) and Non-Labored Respirations
GI: Soft, Non Distended and Non Tender
Neurology: Awake, Alert, Oriented and No Motor Deficits
Skin: Warm and Dry
Labs/Micro/Reports
Lab Data
01/11/25 03:58
01/11/25 03:58
Microbiology
01/08/25 19:31 Blood/Venous Blood Culture - Preliminary
No Growth in 48 hours- Final report to follow
01/08/25 19:29 Blood/Venous Blood Culture - Preliminary
No Growth in 48 hours- Final report to follow
01/08/25 16:46 Nasal Swab Influenza Types A & B (MIRIAM) - Final
Negative for Influenza A & B, NAAT
Negative results must be combined with clinical observations
and patient history.
Nucleic Acid Amplification test (NAAT)performed on the
[employer] platform.
--- NOTE | 2025-01-11 10:04 | CM ---
Patient seen at bedside in IMU. Patient with out change, Patient discussed his status re when home will need home health. Patient stated that he was intrested in possible discussion with transplant with Pulmonary. CM will continue to follow for
discharge planning needs.
Plan; home with [facility] pending medical treatment plan.
--- NOTE | 2025-01-11 15:50 | W.PN.HOSP.TC ---
Today's Communication/Plan
-
Assessment / Plan
Assessment / Plan
General: No Apparent Distress, Comfortable and Conversant
HEENT: NormoCephalic, Moist mucous membranes, nasal cannula in place
Respiratory: Dyspneic when talking, not bronchospastic
Cardiac: S1/S2 and Regular Rhythm; No Rub or Gallop
GI: Soft, Non Tender, Non Distended and Normal Bowel Sounds
Musculoskeletal: No Edema, no deformity
: NO Decker
Neuro: Awake, Alert, Nonfocal/grossly intact
Psych: Calm and Intact Judgment/Insight
pt is a 69 year old male
Acute on chronic Hypoxic respiratory failure secondary to Right upper lobe pneumonia with Severe Emphysema on chronic 4 L nasal cannula (Former smoker 40-year 2 to 3 pack a day quit 7 years ago)--covid/flu neg--would start standing IV steroids--cont
rocephin/zmax-- blood cultures no growth--apprec pulm--VBG shows CO2 retention which does match his chronic metabolic alkalosis--CT scan without pulm embolism but with severe emphysema (was considered for lung transplant at [facility] but backed out at
the last minute)--I do not know how much better we can get him....
- Currently on 6 L via nasal cannula, desaturates with minimal exertion
- Continuing antibiotics and IV steroids
- Appreciate pulmonology guidance
- Patient is considering following up as outpatient with [facility] or [place] for lung transplant
Acute on chronic abdominal pain--CT abdomen/pelvis without significant issue--stop IVF
Mild hyperglycemia--Blood sugar 197, HgbA1c 5.4% this admission
Essential HTN--Home regimen consist of Cardizem 240 mg daily, HCTZ 12.5 mg daily, KCl 10 mEq
- Blood pressure currently well-controlled without home antihypertensive regimen
HLD--Home regimen of Crestor 10 mg at bedtime, continue while inpatient
DVT proph--Subcu Lovenox
code status--Full code---spoke to patient about whether he wanted to follow up with [facility] for ongoing transplant eval at which time he called his and said 'ask her'--spoke with by phone--plan is to move forward with being evaluated for
transplant (as opposed to hospice, end of life discussions)--explained that they are very different pathways and I wanted to go down the one he wants--they then asked about going to [place] for eval....
pt seems confused--saying,' you want me to drive down there now?'--explained again, trying to get him as better as we can so he can go as an outpt but he has NO reserve
reviewed CT abdomen with him--he says, when he walks he has lower abdominal pain--it is likely from his poor lungs and poor O2 exchange
Anticipated Discharge: 24 - 48 hours
Subjective/Interval History
-
Date of Service: January 11, 2025
Patient was seen and examined at bedside. Appears dyspneic but in no acute distress. Conversing appropriate.
Objective Data
-
Labs:
Laboratory Results
01/11/25
03:58
WBC 8.2
Hgb 12.6 L
Hct 41.1
Plt Count 233 D
Sodium 138
Potassium 4.7
Chloride 93 L
Carbon Dioxide 39 H
BUN 19
Creatinine 0.8
Glucose 144 H
Calcium 9.0
Total Bilirubin 0.4
AST 33
ALT 22
Alkaline Phosphatase 63
Vital Signs:
Vital Signs
Temp Pulse Resp BP Pulse Ox
99.1 F 102 18 129/83 93
01/11/25 14:39 01/11/25 15:21 01/11/25 15:21 01/11/25 12:00 01/11/25 15:21
I&O
01/10/25 01/11/25 01/12/25
06:59 06:59 06:59
Intake Total 780 / 780
Output Total 650 / 650 1500 / 1500
Balance 130 / 130 -1500 / -1500
Review of Systems
-
History Source: Patient
All other systems: Reviewed and negative
Respiratory: Reports Trouble Breathing
Physical Exam
-
General: No Apparent Distress and Appears Chronically Ill
[2025-01-11] MEDS: LOVENOX 40 MG SC (17:21)
--- NOTE | 2025-01-11 18:29 | PTCARENOTE ---
Assumed care of patient at beginning of this shift from previous RN with O2 8L in use; continued t/o the day. Patient stated he has developed a loose productive cough; sputum cup provided to assess quality and amount. No c/o SOB. See worklist for
full assessment and vital signs.
[2025-01-11] MEDS: ROCEPHIN 1000 MG IV (20:42)
[2025-01-11] MEDS: CRESTOR 10 MG PO (20:42)
[2025-01-11] MEDS: STERILE WATER FOR INJECTION 10 ML IV (20:42)
[2025-01-12] VITALS (11 sets, daily range): BP systolic 106–140; BP diastolic 71–92; BMI 27.7
--- NOTE | 2025-01-12 03:08 | PTCARENOTE ---
Pt AAOx3, able to make needs know. Pt informing this RN he has not been able to get out of his house for 'months maybe a year' that's why he has not seen doctors and had evaluations. Per Pt he plans on 'seeing how things go' and then he would like
to see if he is a candidate for lung transplant. Case management request placed. Pt respirations even unlabored at this time. spo2 95% on 8L.
[2025-01-12 06:37] LABS: Hematocrit 40.1 % (39.0-52.0); Hemoglobin 12.2 g/dL (13.0-18.0); Mean Corp Hgb Conc. 30.4 g/dL (33.0-37.0); Mean Corpuscular Volume 96.4 fL (80.0-94.0); Nucleated Red Blood Cells % 0 % (-); Platelet Count 222 10^3/uL (130-400); Red Cell Dist. Width 13.6 % (11.5-14.5)
[2025-01-12 07:06] LABS: ALT (SGPT) 37 U/L (0-50); AST (SGOT) 40 U/L (17-59); Albumin 3.4 g/dl (3.5-5.0); Alkaline Phosphatase 49 U/L (38-126); Blood Urea Nitrogen 17 mg/dl (9-20); Calcium 8.7 mg/dl (8.4-10.2); Chloride 94 mmol/L (98-107); Estimated Creatinine Clearance 87 ml/min; Glucose 129 mg/dl (70-99); Potassium 4.9 mmol/L (3.5-5.1); Sodium 137 mmol/L (135-145); Total Protein 6.3 g/dl (6.3-8.2); eGFR > 60.00
[2025-01-12 07:19] LABS: Carbon Dioxide 42 mmol/L (22-30)
[2025-01-12] MEDS: PULMICORT 0.5 MG INH ×2 (08:09→20:18)
[2025-01-12] MEDS: DUONEB 3 ML INH ×4 (08:09→20:18)
[2025-01-12] MEDS: ZITHROMAX 500 MG PO (08:22)
[2025-01-12] MEDS: DECADRON 4 MG IV ×3 (08:22→23:43)
[2025-01-12] MEDS: FLUSH (NSS) 2 FLUSH IV ×2 (08:26→17:38)
--- NOTE | 2025-01-12 08:26 | W.PN.HOSP.TC ---
Today's Communication/Plan
-
apprec pulm
on 6L
wean steroids as per pulm
may need higher O2 concentrator at home?... although pt CO2 retainer and higher doses may not be best
Assessment / Plan
Assessment / Plan
pt is a 69 year old male
Acute on chronic Hypoxic respiratory failure secondary to Right upper lobe pneumonia with Severe Emphysema on chronic 4 L nasal cannula (Former smoker 40-year 2 to 3 pack a day quit 7 years ago)--covid/flu neg--cont IV steroids, wean as able--cont
rocephin/zmax-- blood cultures no growth--apprec pulm--VBG shows CO2 retention which does match his chronic metabolic alkalosis--CT scan without pulm embolism but with severe emphysema (was considered for lung transplant at [facility] but backed out at
the last minute)--I do not know how much better we can get him....
Acute on chronic abdominal pain--CT abdomen/pelvis without significant issue--stop IVF
Mild hyperglycemia--Blood sugar 197, HgbA1c 5.4% this admission--likely due to steroids
Essential HTN--Home regimen consist of Cardizem 240 mg daily, HCTZ 12.5 mg daily, KCl 10 mEq-- Blood pressure currently well-controlled without home antihypertensive regimen
HLD--Home regimen of Crestor 10 mg at bedtime, continue while inpatient
DVT proph--Subcu Lovenox
code status--Full code---spoke to patient about whether he wanted to follow up with [facility] for ongoing transplant eval at which time he called his and said 'ask her'--spoke with by phone--plan is to move forward with being evaluated for
transplant (as opposed to hospice, end of life discussions)--explained that they are very different pathways and I wanted to go down the one he wants--they then asked about going to [place] for eval....
pt seems confused--saying,' you want me to drive down there now?'--explained again, trying to get him as better as we can so he can go as an outpt but he has NO reserve
reviewed CT abdomen with him--he says, when he walks he has lower abdominal pain--it is likely from his poor lungs and poor O2 exchange with exertion
Anticipated Discharge: > 48 hours
Subjective/Interval History
-
Date of Service: January 12, 2025
pt sitting in the chair getting breathing treatment--on 6L
Objective Data
-
Labs:
Laboratory Results
01/12/25
06:05
WBC 6.6
Hgb 12.2 L
Hct 40.1
Plt Count 222
Sodium 137
Potassium 4.9
Chloride 94 L
Carbon Dioxide 42 H
BUN 17
Creatinine 0.9
Glucose 129 H
Calcium 8.7
Total Bilirubin 0.5
AST 40
ALT 37
Alkaline Phosphatase 49
Vital Signs:
max temp for 24 hours
01/11/25
14:39
Temp 99.1 F
Vital Signs
Temp Pulse Resp BP Pulse Ox
98.0 F 20 17 140/92 95
01/12/25 03:00 01/12/25 08:13 01/12/25 08:13 01/12/25 06:00 01/12/25 08:13
I&O
01/11/25 01/12/25 01/13/25
06:59 06:59 06:59
Intake Total 240 / 240
Output Total 1500 / 1500 1300 / 1300
Balance -1500 / -1500 -1060 / -1060
Review of Systems
-
All other systems: Reviewed and negative
Respiratory: Reports Cough and Trouble Breathing
Physical Exam
-
General: Well Developed, Well Nourished, No Apparent Distress and Appears Chronically Ill
HEENT: Normocephalic, Atraumatic and Oxygen (with neb treatment)
Respiratory: Decreased Breath Sounds (poor air movement all lung lance)
Cardiac: Regular Rhythm and S1/S2; Negative Murmur
GI: Soft, Nontender, Nondistended and Normal Bowel Sounds
Musculoskeletal: No Clubbing, No Cyanosis and No Edema
Neuro: Awake
Psych: Calm
--- NOTE | 2025-01-12 10:20 | CM ---
artist's manager met with patient and patient is currently on 6 liters of oxygen, 7 liters of oxygen with activity, patient's concentrator goes up to 5 liters, nursing made aware, patient gets his home oxygen from [facility]. Patient would benefit from
visiting nurses, discussed options with patient however patient asked that director of casework reach out to his spouse, message left with spouse to review visiting nurses options.
Plan; Home with spouse, home care and increased home oxygen if necessary.
--- NOTE | 2025-01-12 10:37 | PTCARENOTE ---
Patient alert and oriented x3, dyspneic at rest, severe diminished breath sounds throughout, pt oxygen weaned to 6L Midflow with pulse ox at 94%. Pt with long standing lung disease and tells me he wears 4L at home and 5 with activity. Assisted OOB
to chair with minimal assist. SOB with minimal conversation and rests before continuing to discuss, goals, plan of care or discharge. NSR on monitor, pt denies pain and reports feeling better than upon admission.
--- NOTE | 2025-01-12 12:27 | W.PN.PUL3 ---
Today's Communication / Plan
-
Continue antibiotics
Continue IV corticosteroids
Continue nebulizer regimen
Continue oxygen supplementation
Monitor for mental status change-has chronic hypercapnia
Assessment
-
69-year-old male past medical history of severe COPD on 4 L chronic oxygen, hypertension, HLD, presenting with shortness of breath and hypoxic to 64% today. �He was feeling lightheadedness. �Patient also having severe left to right abdominal pain
for several months. �Patient unable to get at the house to get evaluated. �Has been having intermittent constipation.
Being evaluated for [facility] lung transplant. �Colonoscopy was attempted 3 times but patient was never properly evacuated so lung transplant could not be pursued. He was last seen about 1-2 years ago. In ER, vital signs showed tachycardia up to 113.
�Hypoxic requiring 6 L oxygen. Labs show leukocytosis 11.8. Chest x-ray shows nodular density within the right lung peribronchial thickening suggesting small airway pneumonitis/bronchitis. �CT PE shows multiple small nodular opacities within the
anterior aspect of the right upper lobe which is likely pneumonia. �Severe changes of emphysema. �We are consulted for evaluation.
Acute on chronic hypoxemia, baseline use of 4L--placed on 6L
Severe end stage COPD/Emphysema, evaluated at [facility] for transplant
AE COPD
Possible PNA
Sinus tachycardia
Acute on chronic SOB
Met alkalosis, with chronic hypercarbia noted-compensated
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
Former smoker, 1PPD for 20 years then 2PPD for 20 more years, quit 5-10 years ago (total PY = 60)
CAD, minimal in 1 artery per patient during transplant w/u, no records
HTN
HLD
Plan
Hypoxemia noted on arrival, O2 tom 60s, he is on baseline use of 4L, placed on 6L
Wean as tolerated to baseline
ABG 01/09/2025: 7.41/67/198-chronic hypercapnic respiratory failure. Compensated.
Prior history of lung disease is noted including severe end stage COPD/emphysema
Last seen at [facility] in the past 1-2 years but did not proceed with further testing to obtain transplant
Will request records, pending
Suspect patient has AE COPD and possible PNA but difficult to tell based on limited lung tissue on CT
The emphysema is so advanced and severe that these findings are limited
PCT 0.33 with mild elevation, can complete course of abx
proBNP- -- negative-no evidence for volume overload.
-
Continue antibiotics ceftriaxone/Zithromax
Continue IV corticosteroids at the current dose 4 mg IV every 8
Continue DuoNebs 4 times a day
We can consider upon discharge transitioning to nebulized therapy
Usually on BREZTRI-hold for now(patient ran out of the medication about 4 months ago)
-
Cardiac w/u at [facility] reportedly good
H/o HTN, he states he had minimal CAD in 1 artery
Smoking history noted--60 PY, quit 7 years ago
Continued smoking cessation encouraged
PT/OT evals
We did discuss that if he does not improve with more time on IV abx and steroids that we would need to discuss end of life discussions
If he improves, he would need to see [facility] again as OP to qualify for transplant
Will need outpatient pulmonary evaluation in their office for PFTs and 6MWT
Dr. Osuna reviewed with patient, sister and on the phone at bedside-01/12/2025.
Remains full code
We will follow
Diagnostic Data
Chest X-Ray: 01/08/25- Volume loss of the left hemithorax with shift of the mediastinum toward the left. Bands of increased opacity within the left mid to lower lung, most likely representing scarring and/or chronic atelectasis. The right lung
appears hyperinflated, findings suggestive of emphysema. Subtle small nodular density suggested within the right lung with peribronchial thickening, suggesting the possibility of small airway pneumonitis and/or bronchitis. Mild blunting of the left
lateral costophrenic angle is most likely chronic pleural thickening, although a small left pleural effusion is also possible. Overall cardiac silhouette size appears within normal limits with no findings to suggest pulmonary edema. Mild
dextroconvex scoliosis centered in the midthoracic spine.
CT Scan: CHEST 01/08/25- Examination is negative for pulmonary embolism. Volume loss of the left hemithorax with bands of scarring/chronic atelectasis within the left lung. Severe changes of emphysema. Multiple small nodular opacities within the
anterior aspect of the right upper lobe, which is likely pneumonia. 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 Fatty infiltration the liver.
Echo:
PFT's:
Reports and relevant images were personally reviewed.
Subjective Data
-
Date of Service:
Date of Service: January 12, 2025
Chief Complaint: Pulmonary Follow Up
Review of Systems
Cardiopulmonary: Dyspnea, Dyspnea on Exertion, Cough and Wheezing
Objective Data
Data Reviewed
Vital Signs / I&O / Oxygen:
Vital Signs
Temp Pulse Resp BP Pulse Ox
97.8 F 87 16 140/92 95
01/12/25 08:27 01/12/25 11:42 01/12/25 11:42 01/12/25 06:00 01/12/25 11:42
Intake and Output
01/11/25 01/12/25 01/13/25
06:59 06:59 06:59
Intake Total 240 / 240
Output Total 1500 / 1500 1300 / 1300
Balance -1500 / -1500 -1060 / -1060
SaO2 95
Nasal Cannula flow liters per 6
minute
Physical Exam
General: Respiratory Distress (None at rest) and Other (NAD)
HEENT: Normocephalic, Anicteric and Moist Mucous Membranes
Cardiovascular: S1-S2 and Regular Rhythm
Respiratory: Non-Labored Respirations and Other (Prolonged expiratory phase)
GI: Soft, Non Distended and Non Tender
Neurology: Awake, Alert, Oriented and No Motor Deficits
Skin: Warm and Dry
Labs/Micro/Reports
Lab Data
01/12/25 06:05
01/12/25 06:05
Microbiology
01/08/25 19:31 Blood/Venous Blood Culture - Preliminary
No Growth in 72 hours- Final report to follow
01/08/25 19:29 Blood/Venous Blood Culture - Preliminary
No Growth in 72 hours- Final report to follow
[2025-01-12] MEDS: LOVENOX 40 MG SC (17:39)
[2025-01-12] MEDS: STERILE WATER FOR INJECTION 10 ML IV (20:18)
[2025-01-12] MEDS: CRESTOR 10 MG PO (20:18)
[2025-01-12] MEDS: ROCEPHIN 1000 MG IV (20:18)
[2025-01-13] VITALS (13 sets, daily range): BP systolic 84–139; BP diastolic 57–87; BMI 28.0
--- NOTE | 2025-01-13 05:02 | PTCARENOTE ---
Pt appearing to get rest over night. Pt respiration even unlabored. SPO2 96% on 6L at start of shift, Pt having some periods of SOB during conversations but quickly recuperating. During the night attempted to wean Pt oxygen down to 4L, Pt appearing
to be tolerating well at this time, SPO2 94% respiration continue to be even unlabored.
[2025-01-13 05:03] LABS: Hematocrit 37.5 % (39.0-52.0); Hemoglobin 11.6 g/dL (13.0-18.0); Mean Corp Hgb Conc. 30.9 g/dL (33.0-37.0); Mean Corpuscular Volume 94.7 fL (80.0-94.0); Platelet Count 187 10^3/uL (130-400); Red Cell Dist. Width 13.3 % (11.5-14.5)
[2025-01-13 05:32] LABS: Blood Urea Nitrogen 21 mg/dl (9-20); Calcium 8.4 mg/dl (8.4-10.2); Chloride 96 mmol/L (98-107); Estimated Creatinine Clearance 112 ml/min; Glucose 136 mg/dl (70-99); Magnesium 2.2 mg/dl (1.6-2.3); Potassium 5.2 mmol/L (3.5-5.1); Sodium 136 mmol/L (135-145); eGFR > 60.00
[2025-01-13 05:43] LABS: Carbon Dioxide 40 mmol/L (22-30)
[2025-01-13] MEDS: PULMICORT 0.5 MG INH ×2 (07:19→20:30)
[2025-01-13] MEDS: DUONEB 3 ML INH ×4 (07:19→20:30)
[2025-01-13] MEDS: ZITHROMAX 500 MG PO (08:17)
[2025-01-13] MEDS: DECADRON 4 MG IV ×3 (08:17→23:00)
--- NOTE | 2025-01-13 09:33 | W.PN.HOSP.TC ---
Today's Communication/Plan
-
wean steroids
day 5 of ABX
O2 requirements fluctuate--IF we can get out of the hospital, may need higher O2 concentrator
Assessment / Plan
Assessment / Plan
pt is a 69 year old male
Acute on chronic Hypoxic respiratory failure secondary to Right upper lobe pneumonia with Severe Emphysema on chronic 4 L nasal cannula (Former smoker 40-year 2 to 3 pack a day quit 7 years ago)--covid/flu neg--wean IV steroids--cont rocephin/zmax
(day 5)-- blood cultures no growth--apprec pulm--VBG shows CO2 retention which does match his chronic metabolic alkalosis--CT scan without pulm embolism but with severe emphysema (was considered for lung transplant at [facility] but backed out at the
last minute)--I do not know how much better we can get him....
Acute on chronic abdominal pain--CT abdomen/pelvis without significant issue--stop IVF
Mild hyperglycemia--Blood sugar 197, HgbA1c 5.4% this admission--likely due to steroids
Essential HTN--Home regimen consist of Cardizem 240 mg daily, HCTZ 12.5 mg daily, KCl 10 mEq-- Blood pressure currently well-controlled without home antihypertensive regimen
HLD--Home regimen of Crestor 10 mg at bedtime, continue while inpatient
DVT proph--Subcu Lovenox
code status--Full code---spoke to patient about whether he wanted to follow up with [facility] for ongoing transplant eval at which time he called his and said 'ask her'--spoke with by phone--plan is to move forward with being evaluated for
transplant (as opposed to hospice, end of life discussions)--explained that they are very different pathways and I wanted to go down the one he wants--they then asked about going to [place] for eval....
pt seems confused--saying,' you want me to drive down there now?'--explained again, trying to get him as better as we can so he can go as an outpt but he has NO reserve
Anticipated Discharge: > 48 hours
Subjective/Interval History
-
Date of Service: January 13, 2025
pt is up to 6L with washing up at the bedside
Objective Data
-
Labs:
Laboratory Results
01/13/25
04:51
WBC 6.4
Hgb 11.6 L
Hct 37.5 L
Plt Count 187
Sodium 136
Potassium 5.2 H
Chloride 96 L
Carbon Dioxide 40 H
BUN 21 H
Creatinine 0.7
Glucose 136 H
Calcium 8.4
Vital Signs:
max temp for 24 hours
01/12/25
19:14
Temp 98.7 F
Vital Signs
Temp Pulse Resp BP Pulse Ox
97.1 F 78 17 128/82 97
01/13/25 08:44 01/13/25 08:00 01/13/25 08:00 01/13/25 08:00 01/13/25 08:00
I&O
01/12/25 01/13/25 01/14/25
06:59 06:59 06:59
Intake Total 240 / 240 240 / 240
Output Total 1300 / 1300 1550 / 1550
Balance -1060 / -1060 -1310 / -1310
Review of Systems
-
All other systems: Reviewed and negative
Physical Exam
-
General: Well Developed, Well Nourished and Respiratory Distress (no changes--still with pursed lip breathing and lifting himself up with his arms)
HEENT: Normocephalic, Atraumatic and Oxygen (6L)
Respiratory: Decreased Breath Sounds (very poor air movement bilaterally)
Cardiac: Regular Rhythm and S1/S2; Negative Murmur
GI: Soft, Nontender, Nondistended and Normal Bowel Sounds
Musculoskeletal: No Clubbing, No Cyanosis and No Edema
Neuro: Awake
Psych: Anxious
--- NOTE | 2025-01-13 10:04 | PTCARENOTE ---
Assumed care of patient at beginning of this shift from previous RN with O2 4l midflow in use and POx 95%. Patient did desat to 88% when eating breakfast; initially tried 5l but needed to go to 6L. He stated he did feel a little SOB prior to
increasing oxygen. Currently on 6L with POx 94-95% while sitting OOB in chair. Lungs diminished t/o with fine exp wheeze, more anteriorly. Patient states last bm was . This nurse offered to contact physician for stool softener but patient
declined at this time. See worklist for full assessment and vital signs.
--- NOTE | 2025-01-13 16:19 | W.PN.PUL3 ---
Today's Communication / Plan
-
Continue IV corticosteroid without change
Continue high intensity nebulizer regimen
Continue antibiotics
Wean down FiO2-remains on 6 L (Usually 3-4L)
Physical therapy as tolerated
Will continue to follow
Assessment
-
69-year-old male past medical history of severe COPD on 4 L chronic oxygen, hypertension, HLD, presenting with shortness of breath and hypoxic to 64% today. �He was feeling lightheadedness. �Patient also having severe left to right abdominal pain
for several months. �Patient unable to get at the house to get evaluated. �Has been having intermittent constipation.
Being evaluated for [facility] lung transplant. �Colonoscopy was attempted 3 times but patient was never properly evacuated so lung transplant could not be pursued. He was last seen about 1-2 years ago. In ER, vital signs showed tachycardia up to 113.
�Hypoxic requiring 6 L oxygen. Labs show leukocytosis 11.8. Chest x-ray shows nodular density within the right lung peribronchial thickening suggesting small airway pneumonitis/bronchitis. �CT PE shows multiple small nodular opacities within the
anterior aspect of the right upper lobe which is likely pneumonia. �Severe changes of emphysema. �We are consulted for evaluation.
Acute on chronic hypoxemia, baseline use of 4L--placed on 6L
Severe end stage COPD/Emphysema, evaluated at [facility] for transplant
AE COPD
Possible PNA
Sinus tachycardia
Acute on chronic SOB
Met alkalosis, with chronic hypercarbia noted-compensated
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
Former smoker, 1PPD for 20 years then 2PPD for 20 more years, quit 5-10 years ago (total PY = 60)
CAD, minimal in 1 artery per patient during transplant w/u, no records
HTN
HLD
Plan
Hypoxemia noted on arrival, O2 tom 60s, he is on baseline use of 4L, placed on 6L
Continue to wean down as able
Home oxygen assessment prior to discharge-patient does have oxygen supplementation at home.
ABG 01/09/2025: 7.41/67/198-chronic hypercapnic respiratory failure. Compensated.
Prior history of lung disease is noted including severe end stage COPD/emphysema
Last seen at [facility] in the past 1-2 years but did not proceed with further testing to obtain transplant
-
Suspect patient has AE COPD and possible PNA but difficult to tell based on limited lung tissue on CT
The emphysema is so advanced and severe that these findings are limited
PCT 0.33 with mild elevation, can complete course of abx
proBNP- -- negative-no evidence for volume overload.
-
Continue antibiotics ceftriaxone/Zithromax
Continue IV corticosteroids at the current dose 4 mg IV every 8-start tapering down tomorrow 07/15/2024.
Continue DuoNebs 4 times a day
We can consider upon discharge transitioning to nebulized therapy
Usually on BREZTRI-hold for now(patient ran out of the medication about 4 months ago)
-
Cardiac w/u at [facility] reportedly good
H/o HTN, he states he had minimal CAD in 1 artery
Smoking history noted--60 PY, quit 7 years ago
Continued smoking cessation encouraged
PT/OT as tolerated.
We did discuss that if he does not improve with more time on IV abx and steroids that we would need to discuss end of life discussions
If he improves, he would need to see [facility] again as OP to qualify for transplant
Will need outpatient pulmonary evaluation in their office for PFTs and 6MWT
Dr. Osuna reviewed with patient, sister and on the phone at bedside-01/12/2025.
Remains full code
We will follow
Diagnostic Data
Chest X-Ray: 01/08/25- Volume loss of the left hemithorax with shift of the mediastinum toward the left. Bands of increased opacity within the left mid to lower lung, most likely representing scarring and/or chronic atelectasis. The right lung
appears hyperinflated, findings suggestive of emphysema. Subtle small nodular density suggested within the right lung with peribronchial thickening, suggesting the possibility of small airway pneumonitis and/or bronchitis. Mild blunting of the left
lateral costophrenic angle is most likely chronic pleural thickening, although a small left pleural effusion is also possible. Overall cardiac silhouette size appears within normal limits with no findings to suggest pulmonary edema. Mild
dextroconvex scoliosis centered in the midthoracic spine.
CT Scan: CHEST 01/08/25- Examination is negative for pulmonary embolism. Volume loss of the left hemithorax with bands of scarring/chronic atelectasis within the left lung. Severe changes of emphysema. Multiple small nodular opacities within the
anterior aspect of the right upper lobe, which is likely pneumonia. 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 Fatty infiltration the liver.
Echo:
PFT's:
Reports and relevant images were personally reviewed.
Subjective Data
-
Date of Service:
Date of Service: January 13, 2025
Chief Complaint: Pulmonary Follow Up
Subjective:
Continues to report shortness of breath
Denies hemoptysis
Denies worsening phlegm production
Review of Systems
General: Fever (n)
Cardiopulmonary: Dyspnea, Dyspnea on Exertion and Cough
Objective Data
Data Reviewed
Vital Signs / I&O / Oxygen:
Vital Signs
Temp Pulse Resp BP Pulse Ox
97.4 F 120 26 139/87 88
01/13/25 12:48 01/13/25 15:44 01/13/25 15:44 01/13/25 14:00 01/13/25 15:44
Intake and Output
01/12/25 01/13/25 01/14/25
06:59 06:59 06:59
Intake Total 240 / 240 240 / 240
Output Total 1300 / 1300 1550 / 1550
Balance -1060 / -1060 -1310 / -1310
SaO2 88
Nasal Cannula flow liters per 6
minute
Physical Exam
General: Respiratory Distress (None at rest) and Other (NAD)
HEENT: Normocephalic, Anicteric and Moist Mucous Membranes
Cardiovascular: S1-S2 and Regular Rhythm
Respiratory: Non-Labored Respirations and Other (Prolonged expiratory phase-poor air movement)
GI: Soft, Non Distended and Non Tender
Neurology: Awake, Alert, Oriented and No Motor Deficits
Skin: Warm and Dry
Labs/Micro/Reports
Lab Data
01/13/25 04:51
01/13/25 04:51
Microbiology
01/08/25 19:31 Blood/Venous Blood Culture - Preliminary
No Growth in 4 days- Final report to follow
01/08/25 19:29 Blood/Venous Blood Culture - Preliminary
No Growth in 4 days- Final report to follow
[2025-01-13] MEDS: LOVENOX 40 MG SC (17:16)
[2025-01-13] MEDS: CRESTOR 10 MG PO (21:23)
[2025-01-13] MEDS: ROCEPHIN 1000 MG IV (21:23)
[2025-01-13] MEDS: STERILE WATER FOR INJECTION 10 ML IV (21:23)
[2025-01-14] VITALS (13 sets, daily range): BP systolic 105–138; BP diastolic 68–88; PULSE 118–122; O2SAT 90; BMI 28.6
--- NOTE | 2025-01-14 04:08 | PTCARENOTE ---
Pt had no complaints over night. Pt appearing to get sleep, respiration even unlabored. Pt spo2 on 4-6L is 87%-92%. At times Pt needing 8L to maintain goal. Pt dyspneic on exertion and with talking at times. Oscar hernández with in reach.
[2025-01-14 06:26] LABS: Hematocrit 39.4 % (39.0-52.0); Hemoglobin 12.0 g/dL (13.0-18.0); Mean Corp Hgb Conc. 30.5 g/dL (33.0-37.0); Mean Corpuscular Volume 94.9 fL (80.0-94.0); Platelet Count 223 10^3/uL (130-400); Red Cell Dist. Width 13.5 % (11.5-14.5)
[2025-01-14 06:40] LABS: Blood Urea Nitrogen 17 mg/dl (9-20); Calcium 8.2 mg/dl (8.4-10.2); Chloride 96 mmol/L (98-107); Estimated Creatinine Clearance 98 ml/min; Glucose 124 mg/dl (70-99); Magnesium 2.2 mg/dl (1.6-2.3); Potassium 4.7 mmol/L (3.5-5.1); Sodium 137 mmol/L (135-145); eGFR > 60.00
[2025-01-14 06:50] LABS: Carbon Dioxide 38 mmol/L (22-30)
[2025-01-14] MEDS: DUONEB 3 ML INH ×4 (07:11→20:37)
[2025-01-14] MEDS: PULMICORT 0.5 MG INH ×2 (07:11→20:37)
[2025-01-14] MEDS: DECADRON 4 MG IV ×3 (08:09→23:27)
[2025-01-14] MEDS: ZITHROMAX 500 MG PO (08:09)
--- NOTE | 2025-01-14 09:43 | W.PN.HOSP.TC ---
Today's Communication/Plan
-
Continue steroids and antibiotics
Consult GI
Assessment / Plan
Assessment / Plan
pt is a 69 year old male
Acute on chronic Hypoxic respiratory failure secondary to Right upper lobe pneumonia
Severe Emphysema on chronic 4 L nasal cannula (Former smoker 40-year 2 to 3 pack a day quit 7 years ago)
End-stage COPD with flare now-evaluated by lung transplant center at [facility] and he backed out and hasnt followed with them in a while
Compensated chronic respiratory acidosis.
House bound on his 3 floor condo as he cant make it on steps!
Microbiology testing so far nondiagnostic. Not bacteremic.
Continue with antibiotics for pneumonia.
Continue with steroids IV and taper per pulmonary.
Patient now wants to relook at lung transplant evaluation and he would follow-up with [facility] as an outpatient.
Consider BiPAP at [facility] at [facility] due to chronic hypercapnia.
No evidence of heart failure currently.
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
Is not a candidate for any surgical intervention I favor this end-stage COPD. But at least will get GI involved to rule the diverticulum playing a role in his abdominal pain. Maybe consider barium swallow.
Mild hyperglycemia-- HgbA1c 5.4% this admission--likely due to steroids
Essential HTN--Home regimen consist of Cardizem 240 mg daily, HCTZ 12.5 mg daily, KCl 10 mEq-- Blood pressure currently well-controlled without home antihypertensive regimen
HLD--Home regimen of Crestor 10 mg at bedtime, continue while inpatient
DVT proph--Subcu Lovenox
code status--Full code
Discussed with GI
Total time spent on today's encounter was 52 minutes which included time spent in counseling the patient/family regarding diagnosis and treatment plan as listed above, goals of care, and symptom management. Case was discussed with nursing staff,
specialists, and care coordinators/case management. All labs and imaging personally reviewed by me. Remainder the time spent in detailed review of previous records, lab data, imaging, and other medical provider documentation.
Portions of this chart may have been created with voice recognition software. Occasional wrong word or 'sound alike' substitutions may have occurred due to the inherent limitations of voice recognition software.
Anticipated Discharge: > 48 hours
Subjective/Interval History
-
Date of Service: January 14, 2025
Respiratory symptoms shah patient has seen improvement since admission. Still on 6 L of oxygen. Baseline at home is 4 L. Cough not much productive. Denies any chest pain.
Still symptomatic with shortness of breath on minimal exertion.
No fever or chills.
Patient has been having chronic abdominal pain which is mostly in the upper abdomen. He notices it worse when he walks around. Also makes him bloated after he eats. No vomiting or regurgitation.
Objective Data
-
Labs:
Laboratory Results
01/14/25
05:55
WBC 7.8
Hgb 12.0 L
Hct 39.4
Plt Count 223
Sodium 137
Potassium 4.7
Chloride 96 L
Carbon Dioxide 38 H
BUN 17
Creatinine 0.8
Glucose 124 H
Calcium 8.2 L
Vital Signs:
Vital Signs
Temp Pulse Resp BP Pulse Ox
97.8 F 102 18 118/79 93
01/14/25 07:37 01/14/25 07:11 01/14/25 07:11 01/14/25 06:00 01/14/25 08:17
I&O
01/13/25 01/14/25 01/15/25
06:59 06:59 06:59
Intake Total 240 / 240 720 / 720
Output Total 1550 / 1550 1050 / 1050
Balance -1310 / -1310 -330 / -330
Physical Exam
-
General: No Apparent Distress
Respiratory: Non Labored Respirations and Decreased Breath Sounds (In general); Negative Wheezes, Crackles or Accessory Resp Muscle Use
Cardiac: Regular Rhythm, S1/S2 and Tachycardic
GI: Soft, Nondistended, Normal Bowel Sounds and Tender (epigastric area)
Neuro: AO x 3
Psych: Calm; Negative Confused
Data Reviewed
-
CT Scan: Report Reviewed by me (CT chest and CT abdomen pelvis)
Labs: Labs Reviewed by me
--- NOTE | 2025-01-14 09:50 | W.PN.PUL.V3 ---
Today's Communication / Plan
-
No change in steroids.
Wean oxygen.
Continue nebulizers.
Finite course of antibiotics
Assessment
-
69-year-old male past medical history of severe COPD on 4 L chronic oxygen, hypertension, HLD, presenting with shortness of breath and hypoxic to 64% today. �He was feeling lightheadedness. �Patient also having severe left to right abdominal pain
for several months. �Patient unable to get at the house to get evaluated. �Has been having intermittent constipation.
Being evaluated for [facility] transplant. �Colonoscopy was attempted 3 times but patient was never properly evacuated so lung transplant could not be pursued. He was last seen about 1-2 years ago. In ER, vital signs showed tachycardia up to 113.
�Hypoxic requiring 6 L oxygen. Labs show leukocytosis 11.8. Chest x-ray shows nodular density within the right lung peribronchial thickening suggesting small airway pneumonitis/bronchitis. �CT PE shows multiple small nodular opacities within the
anterior aspect of the right upper lobe which is likely pneumonia. �Severe changes of emphysema. �We are consulted for evaluation.
Acute on chronic hypoxemia, baseline use of 4L--placed on 6L
Severe end stage COPD/Emphysema, evaluated at [facility] for transplant
AE COPD
Former [id number], quit 7 years ago
Possible PNA
Sinus tachycardia
Acute on chronic SOB
Met alkalosis, with chronic hypercarbia noted-compensated
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
Former smoker, 1PPD for 20 years then 2PPD for 20 more years, quit 5-10 years ago (total PY = 60)
CAD, minimal in 1 artery per patient during transplant w/u, no records
HTN
HLD
Plan
.
Respiratory decompensation-. Patient with end-stage emphysema-patient states that he has not left his third floor condominium for a year because he cannot ambulate on the stairs and has not seen physicians because of this.
Chronic hypercapnia as well-. ABG 01/09/25--7.41
Last seen [facility], 1-2 years ago and did not proceed with transplant testing
Respiratory status still tenuous
Wean oxygen-establish new baseline prior to discharge.
Decadron 4 mg IV every 8 hours-no change.
Pulmicort nebulizers.
Duo nebs 4 times a day
Usually on Breztri
Check sputum if able.
Rocephin and azithromycin-finite course
Cardiac w/u at [facility] reportedly good
H/o HTN, he states he had minimal CAD in 1 artery
DVT prophylaxis-on Lovenox.
Nutrition
Early mobilization/PT/OT
We did discuss that if he does not improve with more time on IV abx and steroids that we would need to discuss end of life discussions
If he improves, he would need to see [facility] again as OP to qualify for transplant
Will need outpatient pulmonary evaluation in their office for PFTs and 6MWT
Dr. Osuna reviewed with patient, sister and on the phone at bedside-01/12/2025
Patient expressed wishes to possibly follow up locally-we will provide information for this.-Consider chronic low-dose steroids, azithromycin, Ohtuvyre nebulizers, Daliresp, Biologics, pulmonary rehabilitation,[place] valves, and transplantation
Diagnostic Data
Chest X-Ray: 01/08/25- Volume loss of the left hemithorax with shift of the mediastinum toward the left. Bands of increased opacity within the left mid to lower lung, most likely representing scarring and/or chronic atelectasis. The right lung
appears hyperinflated, findings suggestive of emphysema. Subtle small nodular density suggested within the right lung with peribronchial thickening, suggesting the possibility of small airway pneumonitis and/or bronchitis. Mild blunting of the left
lateral costophrenic angle is most likely chronic pleural thickening, although a small left pleural effusion is also possible. Overall cardiac silhouette size appears within normal limits with no findings to suggest pulmonary edema. Mild
dextroconvex scoliosis centered in the midthoracic spine.
CT Scan: CHEST 01/08/25- Examination is negative for pulmonary embolism. Volume loss of the left hemithorax with bands of scarring/chronic atelectasis within the left lung. Severe changes of emphysema. Multiple small nodular opacities within the
anterior aspect of the right upper lobe, which is likely pneumonia. 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 Fatty infiltration the liver.
Reports and relevant images were personally reviewed.
Subjective Data
-
Date of Service:
Date of Service: January 14, 2025
Chief Complaint: Pulmonary Follow Up and Dyspnea Follow Up
Subjective:
Still significantly short of breath with minimal activity, no chest pain, some chest congestion, difficulty mobilizing secretions, no abdominal pain
Review of Systems
General: Other ( per HPI)
Objective Data
Data Reviewed
Vital Signs / I&O:
Vital Signs
Temp Pulse Resp BP Pulse Ox
97.8 F 102 18 118/79 93
01/14/25 07:37 01/14/25 07:11 01/14/25 07:11 01/14/25 06:00 01/14/25 08:17
Intake and Output
01/13/25 01/14/25 01/15/25
06:59 06:59 06:59
Intake Total 240 / 240 720 / 720
Output Total 1550 / 1550 1050 / 1050
Balance -1310 / -1310 -330 / -330
SaO2: 93
Nasal Cannula flow liters per minute: 6
Physical Exam
General: Respiratory Distress (None at rest), Comfortable and Other (NAD)
HEENT: Normocephalic, Anicteric and Moist Mucous Membranes
Cardiovascular: Regular Rhythm
Respiratory: Clear ( diminished breath sounds, prolonged expiratory time), Wheeze, Crackles (n), Non-Labored Respirations, Accessory Resp Muscle Use (n), Stridor (n) and Other (Prolonged expiratory phase-poor air movement)
GI: Soft, Non Distended and Non Tender
Neurology: Awake, Alert and No Motor Deficits
Skin: Warm, Dry, Good Color, Cyanosis (n) and Jaundice
Labs/Micro/Reports
Lab Data
01/14/25 05:55
01/14/25 05:55
Microbiology
01/08/25 19:31 Blood/Venous Blood Culture - Final
No Growth - Final Report
01/08/25 19:29 Blood/Venous Blood Culture - Final
No Growth - Final Report
--- NOTE | 2025-01-14 12:40 | CON.GI ---
Addendum entered and electronically signed by Rubens Eli MD 01/14/25 14:19:
I saw and examined the patient.
The INSTRUCTOR ADJUNCT SURGICAL TECHNICIAN's note was reviewed and I agree with the note.
--Chronic abdominal pain-patient experienced pain or discomfort with walking. No pain at rest. Denies any other alarming upper GI symptoms
-- Incidental finding of gastric diverticulum in the fundus
-- End-stage COPD/emphysema
plan
Patient denies any alarming upper GI symptoms. His abdominal discomfort less likely secondary to diverticulam . His abdominal discomfort on exertion possible musculoskeletal or neurological etiology
Would not pursue further evaluation of gastric diverticulum considering his respiratory status
Discussed with hospitalist. Will sign off
Original Note:
Consultation
-
Date/Time Consultation Requested: 01/14/25 0958
Date/Time Consultation Performed: 01/14/25 1215
Requesting Provider: Dr. Issa
Performing Provider: Dr. Eli/PAYAM Macias
Reason for Consultation: chronic left sided pain
Medical History
Chief Complaint / HPI
Chief Complaint: SOB
History of Present Illness:
69-year-old male with past medical history of end-stage COPD/emphysema chronically on 3 L of oxygen, evaluated at [facility] for transplant in the past 1 year ago, hyperlipidemia, CAD, hypertension presents the emergency room with shortness
of breath on 01/08/2025. He was found to be hypoxic at 64% on pulse ox with lightheadedness. We are asked to evaluate for chronic left-sided pain ongoing for the past '6 years'. The patient states that he has had approximately 6 years of left
upper abdominal discomfort associated with ambulation. He states that 6 years ago it would only occur when he was 'mowing the lawn'. He states now it only occurs when he gets up to walk although he can only walk short distances such as going to
the microwave to make his meals. He states that the pain goes from the left side of his back and wraps around to the front of his abdomen. He states that this can be a 'tingling' pain. It can also be dull at times. It only occurs with
ambulation. This does not change with eating, defecation, passing flatus. His appetite is good, he denies any problems with bowel movements except here. He states he has a bowel movement every day or every other day. He denies any fevers,
chills, nausea, vomiting, melena, hematochezia, dysphagia or odynophagia. No early satiety or unintended weight loss. He denies any heartburn, reflux or dyspepsia. He thought that he should try to lose weight so this way he could be reevaluated
for possible transplant. He has never had an upper endoscopy before. He states that he had a colonoscopy 'in the offices behind a movie theater at [facility]' approximately 10 years ago. This was done for rectal bleeding at the time. He
states that everything was 'okay'. However they could not use this as it was not up-to-date for his [place] evaluation. He does state that a year ago they attempted to perform colonoscopy 2 times however he states that he was not 'cleared out'.
The patient quit smoking years ago. He does not drink any alcohol. His medications were reviewed. He denies any aspirin, ibuprofen or Motrin use. 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
Past Medical History
Past Medical History: Other (End-stage COPD/emphysema on chronic O2, hyperlipidemia, CAD, hypertension)
Past Surgical History: None
Social History
Tobacco: Former Smoker
Alcohol: None
Drug: None
Personal:
Living: With Family
Employment: Retired
Family History
Family History: Other (Denies any family history of gastrointestinal malignancy or IBD)
Allergies / Home Medications
Allergy/AdvReac Type Severity Reaction Status Date / Time
ibuprofen Allergy Anaphylaxis Verified 01/08/25 20:59
�Medication �Instructions �Recorded
Breztri Aerosphere 2 puff inhalation DAILY 01/08/25
Lung/Breathing Issues
albuterol sulfate 90 mcg/actuation 90 mcg inhalation DAILY 01/08/25
aerosol inhaler Lung/Breathing Issues
diltiazem HCl 240 mg 240 mg PO DAILY Blood Pressure 01/08/25
capsule,extended release 24 hr
hydrochlorothiazide 12.5 mg tablet 12.5 mg PO DAILY Blood Pressure 01/08/25
potassium chloride 10 meq PO DAILY Supplement 01/08/25
rosuvastatin 10 mg tablet 10 mg PO HS High Cholesterol 01/08/25
Review of Systems
-
All other systems: A 12 pt ROS was Negative except as stated above in HPI
Vital Signs
Temp Pulse Resp BP Pulse Ox
98.0 F 98 16 128/82 93
01/14/25 11:46 01/14/25 11:12 01/14/25 11:12 01/14/25 10:00 01/14/25 10:51
Physical Exam
Exam
General: Other (Appears older than stated age)
HEENT: Anicteric
Respiratory: Other (Poor air exchange, on supplemental oxygen)
Cardiac: Regular Rhythm
GI: Soft, Non Tender, Non Distended and Normal Bowel Sounds
Neuro: AO x 3
Psych: Calm
Results
WBC 7.8 10^3/uL (4.8-10.8) 01/14/25 05:55
Hgb 12.0 g/dL (13.0-18.0) L 01/14/25 05:55
Hct 39.4 % (39.0-52.0) 01/14/25 05:55
MCV 94.9 fL (80.0-94.0) H 01/14/25 05:55
Plt Count 223 10^3/uL (130-400) 01/14/25 05:55
Absolute Neuts (auto) 5.9 10^3/uL (1.4-6.5) 01/12/25 06:05
Sodium 137 mmol/L (135-145) 01/14/25 05:55
Potassium 4.7 mmol/L (3.5-5.1) 01/14/25 05:55
Chloride 96 mmol/L (98-107) L 01/14/25 05:55
Carbon Dioxide 38 mmol/L (22-30) H 01/14/25 05:55
BUN 17 mg/dl (9-20) 01/14/25 05:55
Creatinine 0.8 mg/dL (0.7-1.3) 01/14/25 05:55
Calcium 8.2 mg/dl (8.4-10.2) L 01/14/25 05:55
Total Bilirubin 0.5 mg/dl (0.2-1.3) 01/12/25 06:05
AST 40 U/L (17-59) 01/12/25 06:05
ALT 37 U/L (0-50) 01/12/25 06:05
Alkaline Phosphatase 49 U/L (38-126) 01/12/25 06:05
Lipase 45 U/L (23-300) 01/08/25 16:46
Diagnostic Image Results:
CT Chest:
IMPRESSION: Examination is negative for urinary embolism.
Volume loss of the left hemithorax with bands of scarring/chronic atelectasis within the left lung.
Severe changes of emphysema.
Multiple small nodular opacities within the anterior aspect of the right upper lobe, which is likely pneumonia.
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
Fatty infiltration the liver.
CT Abd/Pelvis with IV and oral contrast:
IMPRESSION: Gastric fundal diverticulum extending adjacent to the left adrenal gland.
Fatty infiltration of the pancreas with no evidence of a focal pancreatic mass.
Urinary bladder appears distended. No focal abnormality of the urinary bladder. Please correlate with any difficulty in spontaneously voiding.
No evidence for bowel obstruction or free intraperitoneal air.
Calcific atherosclerotic disease of the abdominal and pelvic vasculature. 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 Abdominal aorta has maximum AP dimension of 2.8 cm
Prior GI Procedures:
EGD: Never had
Colonoscopy: Per patient had full colonoscopy approximately 10 years 'in the offices behind the movie theater [facility]'. Per patient 'okay'.
Attempted colonoscopy times two 1 year ago at [facility], 'was not cleaned out'.
Assessment / Plan
-
69-year-old male with past medical history of end-stage COPD/emphysema chronically on 3 L of oxygen, evaluated at [facility] for transplant in the past 1 year ago, hyperlipidemia, CAD, hypertension presents the emergency room with shortness
of breath on 01/08/2025. He was found to be hypoxic at 64% on pulse ox with lightheadedness. We are asked to evaluate for chronic left-sided pain ongoing for the past '6 years'. Patient without any dyspeptic symptoms. The pain that he experiences
is with movement only. It does not change with bowel movements, eating, passing gas. No unintentional weight loss. There is a gastric fundal diverticulum that is adjacent to the left adrenal gland. Fatty infiltration of the pancreas with no
evidence of focal pancreatic mass. Patient has a bowel movement every day or every other day. He states he is currently having bowel movements here in the hospital. Eating well. Has no heartburn indigestion or reflux. He does have scoliosis of
the mid thoracic spine. Moderate changes of DDD of the mid to lower thoracic spine. 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 Question whether or not this is radicular as patient described this as pain from the left radiating to the
upper mid abdomen as a 'tingling sensation'. Only occurring with movement.
Impression:
chronic upper abd discomfort
gastric fundal diverticulum, without any dyspeptic symptoms. No signs of diverticulitis.
Acute on chronic hypoxemia
Acute exacerbation of COPD
Possible pneumonia
Sinus tachycardia
Metabolic alkalosis with chronic hypercarbia
Plan:
-As per IM and Pulm
-Discussed with patient that if on steroids would recommend PPI.
-Did reach out to Radiology ([facility]) to see if they could give a measurement on gastric fundal diverticulum which is likely an incidental finding.
-
-
Thank you for consultation and allowing me to participate in the patient's care. Please call the admissions manager GI physician during the after hours with any questions or concerns.
--- NOTE | 2025-01-14 14:20 | PTCARENOTE ---
Pt's assessment as documented. Aox3. NSR/ST on tele monitor. Sating low 90's on 6L, O2 increased with activity to keep sats above 90. Pt desats with minimal exertion but recovers. Resting intermittently. Medications administered as ordered, see MAR.
Ringing appropriately, call hernández within reach.
--- NOTE | 2025-01-14 15:46 | CM ---
F/U: According to Hospital Progress Notes, patient is still weaning down with Oxygen, is continuing steroids and antibiotics, and Hospitalist is consulting GI. PT/OT has not made a recommendation yet. PLAN: Home vs. SNF
--- NOTE | 2025-01-14 15:50 | CM ---
F/U: According to Hospital Progress Notes, patient is still weaning down from 6 liters (on 5 liters at home), continuing steroids and antibiotics, and GI is being consulted. Home VN was discussed, but not decided. PT/OT has not made his
recommendation yet. Case Management to follow.
PLAN: SNF vs. Home with VN
[2025-01-14] MEDS: LOVENOX 40 MG SC (17:11)
[2025-01-14] MEDS: ROCEPHIN 1000 MG IV (20:22)
[2025-01-14] MEDS: STERILE WATER FOR INJECTION 10 ML IV (20:22)
[2025-01-14] MEDS: CRESTOR 10 MG PO (20:22)
[2025-01-15] VITALS (39 sets, daily range): BP systolic 90–134; BP diastolic 54–110; PULSE 91; O2SAT 94; BMI 29.2
--- NOTE | 2025-01-15 01:07 | PTCARENOTE ---
Assumed care for patient overnight. Pt AAOx3. NSR/ST on the monitor. Received pt on 9L MFNC, pt currently on 8L MFNC. SpO2 94%. Pt dyspneic w/ exertion, takes time to recover. IV abx cont. IV steroids cont. Assessment and care as charted see
worklist. Call hernández within reach.
--- NOTE | 2025-01-15 03:33 | W.PN.UPDATE ---
Update Note
Progress Note Update
Noted to be in Atrial fibrillation. Cardizem infusion @ 15mg/hr.� Heparin infusion, dc'd lovenox. CBC Cardiology consulted. Echo ordered. He said he remembers feeling a squeezing sensation in the center of his chest intermittently prior to arrival.
No SOB. BP is a bit soft at 107 systolic. Prior heart and lung care is at [facility]. �
[2025-01-15] MEDS: CARDIZEM 125 IV (03:50)
--- NOTE | 2025-01-15 04:42 | PTCARENOTE ---
Patient HR alarming at 155bpm. Pt denies any chest pain and denies feeling HR increase. EKG showing Atrial fibrillation with rapid ventricular response with a rate of 141 bpm. BP 91/67. Pt denies any history of A-fib. PAYAM Delgado notified, new orders
for Cardizem gtt. Cardizem gtt started per orders see JUN. Labs obtained. HR now anywhere from 120-140. Will continue to monitor closely.
[2025-01-15 05:08] LABS: Blood Urea Nitrogen 21 mg/dl (9-20); Calcium 8.1 mg/dl (8.4-10.2); Chloride 95 mmol/L (98-107); Estimated Creatinine Clearance 87 ml/min; Glucose 172 mg/dl (70-99); Magnesium 2.4 mg/dl (1.6-2.3); Potassium 5.1 mmol/L (3.5-5.1); Sodium 136 mmol/L (135-145); eGFR > 60.00
[2025-01-15] MEDS: HEPARIN 4000 UNITS IV (05:10)
[2025-01-15] MEDS: HEPARIN 25000 UNITS/250 ML IV ×2 (05:12→22:11)
[2025-01-15 05:19] LABS: Carbon Dioxide 41 mmol/L (22-30)
[2025-01-15] MEDS: NSS 1000 IV ×2 (05:20→16:15)
[2025-01-15 05:26] LABS: APTT 24.1 Sec (23.4-35.0)
--- NOTE | 2025-01-15 05:41 | PTCARENOTE ---
Patient remains in A-fib. HR 110-130. MEDICAL TECHNOLOGIST PRN Sandy placed orders for Heparin gtt. VAT team placed an additional IV site in the R hand. Heparin gtt initiated per orders, at initial rate. New orders for IV fluids at 100ml/hr. Pt aware and educated.
[2025-01-15 05:51] LABS: Troponin I 0.013 ng/ml
[2025-01-15] MEDS: DUONEB 3 ML INH ×4 (07:06→19:21)
[2025-01-15] MEDS: PULMICORT 0.5 MG INH ×2 (07:06→19:21)
--- NOTE | 2025-01-15 07:56 | CON.CAR ---
Addendum entered and electronically signed by Renato Myers MD 01/15/25 10:12:
I reviewed and agree with the note by PAYAM and it accurately reflects our care.
I saw and evaluated the patient, and I provided the substantive portion of the medical decision making. My assessment and plan is below:
69-year-old man with severe COPD on home oxygen, nonobstructive coronary artery disease, hypertension, and hyperlipidemia who presented with shortness of breath and hypoxia, being treated for COPD exacerbation and pneumonia. Cardiology is consulted
for atrial fibrillation with RVR that started around 3:00 this morning. Patient notes that he had a sensation of chest squeezing around the time that it started but this has since resolved. He has been started on IV diltiazem and heparin by
primary team. In terms of past cardiac history, he notes seeing a banking manager at [facility] as part of lung transplant workup. He thinks he underwent cardiac catheterization which showed nonobstructive CAD in 1/3 vessels. He remains short of breath
at this time but denies chest pain, palpitations, lightheadedness, or dizziness.
Physical exam: Fast irregular rhythm, no loud murmurs though heart sounds are difficult to hear, decreased breath sounds throughout all lung lance, no lower extremity edema
Telemetry: Atrial fibrillation with heart rates 100s�120s
Atrial fibrillation with RVR: Switch IV diltiazem to p.o. If he has no procedures planned, we will switch IV heparin to DOAC. Case management to [place]. Can consider cardioversion later this admission if he does not convert on his own. Follow-up
echocardiogram.
Nonobstructive CAD: By report. Continue statin. No aspirin as he will be on anticoagulation.
Remainder as per PAYAM note.
Original Note:
Consultation
Consultation Request
Date/Time Consultation Requested: 01/15/2025 04:50
Date/Time Consultation Performed: 01/15/2025 07:50
Requesting Provider: PAYAM Mccarty
Performing Provider: PAYAM Ferguson for [facility]
Reason for Consultation: New atrial fibrillation
Medical History
-
Chief Complaint: Shortness of breath
History of Present Illness:
Jaron Pryor is a 69-year-old male (known to [facility]), with severe COPD requiring 4 L nasal cannula of oxygen supplementation, nonobstructive CAD, hypertension, and hypercholesterolemia who presented 01/08/2025 with a chief complaint of shortness of
breath. He reports hypoxemia down to 64% to the day of arrival. He was experiencing associated lightheadedness. His COPD is currently being managed at [facility]. He reports being evaluated for lung transplant. He was admitted with acute
exacerbation of COPD with associated CAP. This is being managed by pulmonary. Cardiology was consulted overnight for atrial fibrillation. This is a new diagnosis for him. When his heart rate was in the 160s he had palpitations and felt jumpy. He
is not having any chest pain.
Past Medical History
Past Medical History: CAD (Nonobstructive), COPD, HTN and Hypercholesterolemia
Social History
Tobacco: Former Smoker
Alcohol: None
Drug: None
Personal:
Living: With Family
Family History
Family History: Reviewed & Not Pertinent
Allergies / Home Medications
Allergy/AdvReac Type Severity Reaction Status Date / Time
ibuprofen Allergy Anaphylaxis Verified 01/08/25 20:59
�Medication �Instructions �Recorded �Confirmed �Type
Breztri Aerosphere 2 puff inhalation DAILY 01/08/25 01/08/25 History
Lung/Breathing Issues
albuterol sulfate 90 mcg/actuation 90 mcg inhalation DAILY 01/08/25 01/08/25 History
aerosol inhaler Lung/Breathing Issues
diltiazem HCl 240 mg 240 mg PO DAILY Blood Pressure 01/08/25 01/08/25 History
capsule,extended release 24 hr
hydrochlorothiazide 12.5 mg tablet 12.5 mg PO DAILY Blood Pressure 01/08/25 01/08/25 History
potassium chloride 10 meq PO DAILY Supplement 01/08/25 01/08/25 History
rosuvastatin 10 mg tablet 10 mg PO HS High Cholesterol 01/08/25 01/08/25 History
Review of Systems
-
History Source: Patient
All other systems: Negative unless noted
Constitutional: Fatigue
EENT: No Symptoms
Respiratory: Trouble Breathing
Cardiac: Palpitations
Abdomen/GI: No Symptoms
: No Symptoms
Musculoskeletal: No Symptoms
Skin: No Symptoms
Neurological: No Symptoms
Endocrine: No Symptoms
Hematologic/Lymphatic: No Symptoms
Physical Exam
Vital Signs
Temp Pulse Resp BP Pulse Ox
98.7 F 101 18 105/74 96
01/15/25 03:04 01/15/25 07:07 01/15/25 07:07 01/15/25 06:30 01/15/25 07:07
Lab Results
01/14/25 05:55
01/15/25 04:31
Troponin I 0.013 ng/ml 01/15/25 05:01
Zax-Y-Axzobvjnbly Pept 882 pg/ml 01/09/25 07:29
Physical Exam
General: Well Developed, Well Nourished and No Apparent Distress
HEENT: Normocephalic and Anicteric
Respiratory: Clear and Non Labored Respirations
Cardiac: S1/S2 and Irregular Rhythm
Breast: Deferred by me
GI: Soft, Non Tender, Non Distended and Normal Bowel Sounds
Rectal: Deferred by Provider
Genito-urinary: No Costovertebral Tender
Musculoskeletal: No Clubbing, No Cyanosis and No Edema
Skin: Warm and Dry
Neuro: Awake and Alert
Hematologic/Lymphatic: No Lymphadenopathy
Psych: Calm
Impression / Plan
-
I/P: 69M with severe COPD requiring 4 L nasal cannula of oxygen supplementation, nonobstructive CAD, hypertension, and hypercholesterolemia who presented 01/08/2025 with a chief complaint of shortness of breath.
Outpatient banking manager: [facility]
Acute on chronic hypoxemic respiratory failure in the setting, multifactorial
- AE COPD and RUL CAP being managed by pulmonary
Paroxysmal atrial fibrillation, new diagnosis - onset 01/15/2025 at 03:26
- On Diltazem gtt, home diltiazem was held, resume
- No BB given significant lung disease
- Oral Anticoagulation: None prior to arrival, recommend apixaban 5 mg twice daily, case management to [place]
- [id number]: score at least 2 (HTN, age 65-74)
- Echocardiogram today
COPD, acute exacerbation, severe
- He is considering following back up with [facility] regarding transplant
Hypertension, following with changes and agents giving new atrial fibrillation
Hypercholesterolemia, on rosuvastatin 10 mg
Data Reviewed
-
EKG: Report Reviewed by me (Atrial fibrillation with RVR, rate 141)
Labs: Labs Reviewed by me
Old Records: Reviewed
--- NOTE | 2025-01-15 08:56 | W.PN.HOSP.TC ---
Today's Communication/Plan
-
Continue ceftriaxone. Discontinue Zithromax.
Continue with steroids.
Started on Protonix.
Await cardiology input. Await echocardiogram.
Assessment / Plan
Assessment / Plan
pt is a 69 year old male
Acute on chronic Hypoxic respiratory failure secondary to Right upper lobe pneumonia
Severe Emphysema on chronic 4 L nasal cannula (Former smoker 40-year 2 to 3 pack a day quit 7 years ago)
End-stage COPD with flare now-evaluated by lung transplant center at [place] and he backed out and hasnt followed with them in a while
Compensated chronic respiratory acidosis.
House bound on his 3 floor condo as he cant make it on steps!
Microbiology testing so far nondiagnostic. Not bacteremic.
Continue with antibiotics for pneumonia. DC further Zithromax as it is day 6.
Continue with steroids IV and taper per pulmonary.
Patient now wants to relook at lung transplant evaluation and he would follow-up with [place] as an outpatient.
Consider BiPAP at [facility] at home due to chronic hypercapnia.
No evidence of heart failure currently.
New onset of atrial fibrillation with RVR-symptomatic with chest discomfort yesterday with that. Continue with Cardizem drip and IV heparin. Echo pending. Cardiology input pending. Hemodynamically stable. Chest x-ray from yesterday showed no
CHF. Scattered mild bilateral lower extremity edema. check a BNP .
K and magnesium are okay.
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 Appreciate GI input who feels this is an incidental finding and not related to his symptoms. GI signed off.
I would favor adding PPI not for diverticulum as well asymptomatic by GI but due to nonspecific abdominal pains ,currently with high stresses , and patient going to be on steroids and blood thinners.
Mild hyperglycemia-- HgbA1c 5.4% this admission--likely due to steroids
Essential HTN--Home regimen consist of Cardizem 240 mg daily, HCTZ 12.5 mg daily, KCl 10 mEq-- Blood pressure currently well-controlled without home antihypertensive regimen
HLD--Home regimen of Crestor 10 mg at bedtime, continue while inpatient
DVT proph--Subcu Lovenox
code status--Full code
total time spent on today's encounter was 52 minutes which included time spent in counseling the patient/family regarding diagnosis and treatment plan as listed above, goals of care, and symptom management. Case was discussed with nursing staff,
specialists, and care coordinators/case management. All labs and imaging personally reviewed by me. Remainder the time spent in detailed review of previous records, lab data, imaging, and other medical provider documentation.
Portions of this chart may have been created with voice recognition software. Occasional wrong word or 'sound alike' substitutions may have occurred due to the inherent limitations of voice recognition software.
Anticipated Discharge: > 48 hours
Subjective/Interval History
-
Date of Service: January 15, 2025
Went into atrial fibrillation last night with RVR-he felt a squeeze in the left anterior chest with that. Currently without any chest pain or chest pressure.
Denies any prior history of arrhythmias. Denies prior history of SD or CAD.
No worsening of breathing last night. Still requiring higher FiO2 than home FiO2. No fever or chills.
Intermittent abdominal pain which he notices when he walks and also when he squeezes his abdomen he feels a pain in the anterior upper abdomen.
Objective Data
-
Labs:
Laboratory Results
01/15/25 01/15/25 01/15/25
04:31 05:01 11:15
APTT 24.1 Pending
Sodium 136
Potassium 5.1
Chloride 95 L
Carbon Dioxide 41 H
BUN 21 H
Creatinine 0.9
Glucose 172 H
Calcium 8.1 L
Vital Signs:
Vital Signs
Temp Pulse Resp BP Pulse Ox
98.7 F 101 18 105/74 96
01/15/25 03:04 01/15/25 07:07 01/15/25 07:07 01/15/25 06:30 01/15/25 07:07
I&O
01/14/25 01/15/25 01/16/25
06:59 06:59 06:59
Intake Total 720 / 720
Output Total 1050 / 1050 2550 / 2550
Balance -330 / -330 -2550 / -2550
Physical Exam
-
General: No Apparent Distress
Respiratory: Non Labored Respirations and Decreased Breath Sounds ( Poor air movement but no wheeze or crackles); Negative Accessory Resp Muscle Use
Cardiac: S1/S2, Irregular Rhythm and Tachycardic
GI: Soft
Neuro: AO x 3
Psych: Calm
Data Reviewed
-
Labs: Labs Reviewed by me
[2025-01-15] MEDS: ZITHROMAX 500 MG PO (09:16)
[2025-01-15] MEDS: DECADRON 4 MG IV ×3 (09:16→23:44)
[2025-01-15] MEDS: PROTONIX 40 MG PO (09:21)
--- NOTE | 2025-01-15 09:48 | W.PN.PUL.V3 ---
Today's Communication / Plan
-
Antibiotics
Nebulizers
Decadron without change
Diltiazem and heparin drip
Assessment
-
69-year-old male past medical history of severe COPD on 4 L chronic oxygen, hypertension, HLD, presenting with shortness of breath and hypoxic to 64% today. �He was feeling lightheadedness. �Patient also having severe left to right abdominal pain
for several months. �Patient unable to get at the house to get evaluated. �Has been having intermittent constipation.
Being evaluated for [facility] lung transplant. �Colonoscopy was attempted 3 times but patient was never properly evacuated so lung transplant could not be pursued. He was last seen about 1-2 years ago. In ER, vital signs showed tachycardia up to 113.
�Hypoxic requiring 6 L oxygen. Labs show leukocytosis 11.8. Chest x-ray shows nodular density within the right lung peribronchial thickening suggesting small airway pneumonitis/bronchitis. �CT PE shows multiple small nodular opacities within the
anterior aspect of the right upper lobe which is likely pneumonia. �Severe changes of emphysema. �We are consulted for evaluation.
Acute on chronic hypoxemia, baseline use of 4L--placed on 6L
Severe end stage COPD/Emphysema, evaluated at [facility] for transplant
AE COPD
Former [id number]-year, quit 7 years ago
Possible PNA
Sinus tachycardia
Acute on chronic SOB
Met alkalosis, with chronic hypercarbia noted-compensated
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
Former smoker, 1PPD for 20 years then 2PPD for 20 more years, quit 5-10 years ago (total PY = 60)
CAD, minimal in 1 artery per patient during transplant w/u, no records
HTN
HLD
Plan
Respiratory decompensation- Patient with end-stage emphysema-patient states that he has not left his third floor condominium for a year because he cannot ambulate on the stairs and has not seen physicians because of this.
Chronic hypercapnia as well- ABG 01/09/25--/7.41
Last seen [facility], 1-2 years ago and did not proceed with transplant testing
Respiratory status still quite tenuous
Wean oxygen-establish new baseline prior to discharge.
Decadron 4 mg IV every 8 hours-no change.
Pulmicort nebulizers.
Duo nebs 4 times a day
Usually on Breztri
Check sputum if able to produce
Rocephin and azithromycin-finite course
Cardiac w/u at [facility] reportedly good
H/o HTN, he states he had minimal CAD in 1 artery
Cardiology evaluation-correspondence reviewed
Follow-up chest x-ray
Diltiazem drip
Heparin drip
DVT prophylaxis-on Lovenox.
Nutrition
Early mobilization/PT/OT
We did discuss that if he does not improve with more time on IV abx and steroids that we would need to discuss end of life discussions
If he improves, he would need to see [facility] again as OP to qualify for transplant
Will need outpatient pulmonary evaluation in their office for PFTs and 6MWT
Dr. Osuna reviewed with patient, sister and on the phone at bedside-01/12/2025
Patient expressed wishes to possibly follow up locally-we will provide information for this-Consider chronic low-dose steroids, azithromycin, Ohtuvyre nebulizers, Daliresp, Biologics, pulmonary rehabilitation, [place] valves, and transplantation
Diagnostic Data
Chest X-Ray: 01/08/25- Volume loss of the left hemithorax with shift of the mediastinum toward the left. Bands of increased opacity within the left mid to lower lung, most likely representing scarring and/or chronic atelectasis. The right lung
appears hyperinflated, findings suggestive of emphysema. Subtle small nodular density suggested within the right lung with peribronchial thickening, suggesting the possibility of small airway pneumonitis and/or bronchitis. Mild blunting of the left
lateral costophrenic angle is most likely chronic pleural thickening, although a small left pleural effusion is also possible. Overall cardiac silhouette size appears within normal limits with no findings to suggest pulmonary edema. Mild
dextroconvex scoliosis centered in the midthoracic spine.
CT Scan: CHEST 01/08/25- Examination is negative for pulmonary embolism. Volume loss of the left hemithorax with bands of scarring/chronic atelectasis within the left lung. Severe changes of emphysema. Multiple small nodular opacities within the
anterior aspect of the right upper lobe, which is likely pneumonia. 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 Fatty infiltration the liver.
Reports and relevant images were personally reviewed.
Subjective Data
-
Date of Service:
Date of Service: January 15, 2025
Chief Complaint: Pulmonary Follow Up and Dyspnea Follow Up
Subjective:
Feels perhaps slightly better, no chest pain, productive cough, abdominal pain
Review of Systems
General: Other (Per HPI)
Objective Data
Data Reviewed
Vital Signs / I&O:
Vital Signs
Temp Pulse Resp BP Pulse Ox
98.7 F 101 18 105/74 96
01/15/25 03:04 01/15/25 07:07 01/15/25 07:07 01/15/25 06:30 01/15/25 07:07
Intake and Output
01/14/25 01/15/25 01/16/25
06:59 06:59 06:59
Intake Total 720 / 720
Output Total 1050 / 1050 2550 / 2550
Balance -330 / -330 -2550 / -2550
SaO2: 96
Nasal Cannula flow liters per minute: 6
Physical Exam
General: Respiratory Distress (None at rest), Comfortable and Other (NAD)
HEENT: Normocephalic, Anicteric and Moist Mucous Membranes
Cardiovascular: Irregular Rhythm
Respiratory: Clear ( diminished breath sounds, prolonged expiratory time), Wheeze, Crackles (n), Non-Labored Respirations, Accessory Resp Muscle Use (n), Stridor (n) and Other (Prolonged expiratory phase-poor air movement)
GI: Soft, Non Distended and Non Tender
Neurology: Awake, Alert and No Motor Deficits
Skin: Warm, Dry, Good Color, Cyanosis (n) and Jaundice
Labs/Micro/Reports
Lab Data
01/14/25 05:55
01/15/25 04:31
Laboratory Results
01/15/25
05:01
APTT 24.1
Microbiology
01/08/25 19:31 Blood/Venous Blood Culture - Final
No Growth - Final Report
01/08/25 19:29 Blood/Venous Blood Culture - Final
No Growth - Final Report
[2025-01-15] MEDS: CARDIZEM CD 240 MG PO (11:10)
[2025-01-15 11:46] LABS: APTT 58.1 Sec (23.4-35.0)
--- NOTE | 2025-01-15 14:15 | CM ---
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 Patient still on higher liter flow that normally at home. Hospitalist Notes state that cardiology is consulted, that to
continue Abx, and steroids. PLAN: Home w. VN when ready, watching oxygen flow.
--- NOTE | 2025-01-15 16:48 | PTCARENOTE ---
see nursing assessment. iv cardizem wened off/oral cardizem given this am. heparin infusion maintained per protocol. pt remains in afib on monitor. was oob with pT and ambulated to window and back. pt with increased dyspnea after walking and
desatted down to 84 on 5 liters. o2 increased to 6 liters. appetite is good. pt assisted to commode and had bowl movement. voiding without difficulty.
[2025-01-15 18:56] LABS: APTT 60.3 Sec (23.4-35.0)
[2025-01-15] MEDS: ROCEPHIN 1000 MG IV (20:13)
[2025-01-15] MEDS: STERILE WATER FOR INJECTION 10 ML IV (20:13)
--- NOTE | 2025-01-15 22:06 | PTCARENOTE ---
Patient back in NSR, HR in the 70's. Pt on 8L MFNC. Pt dyspneic with exertion and states that he 'feels tired'. SpO2 96%. Pt desatting to 88% with minimal exertion. Heparin gtt cont. IVF cont. Pt voiding using the urinal. Assessment and care as
charted see worklist.
[2025-01-15] MEDS: CRESTOR 10 MG PO (22:13)
[2025-01-16] VITALS (16 sets, daily range): BP systolic 97–142; BP diastolic 69–108; BMI 30.3
[2025-01-16 03:19] LABS: Hematocrit 40.8 % (39.0-52.0); Hemoglobin 12.0 g/dL (13.0-18.0); Mean Corp Hgb Conc. 29.4 g/dL (33.0-37.0); Mean Corpuscular Volume 97.1 fL (80.0-94.0); Platelet Count 263 10^3/uL (130-400); Red Cell Dist. Width 14.0 % (11.5-14.5)
[2025-01-16 03:27] LABS: APTT 125.0 Sec (23.4-35.0)
[2025-01-16 04:44] LABS: Blood Urea Nitrogen 24 mg/dl (9-20); Calcium 8.2 mg/dl (8.4-10.2); Carbon Dioxide 35 mmol/L (22-30); Chloride 98 mmol/L (98-107); Estimated Creatinine Clearance 110 ml/min; Glucose 171 mg/dl (70-99); Potassium 5.5 mmol/L (3.5-5.1); Sodium 135 mmol/L (135-145); eGFR > 60.00
[2025-01-16] MEDS: DUONEB 3 ML INH ×4 (08:06→19:56)
[2025-01-16] MEDS: PULMICORT 0.5 MG INH ×2 (08:06→19:56)
[2025-01-16] MEDS: DECADRON 4 MG IV ×2 (08:37→17:29)
[2025-01-16] MEDS: ZITHROMAX 500 MG PO (08:37)
[2025-01-16] MEDS: PROTONIX 40 MG PO (08:37)
[2025-01-16] MEDS: CARDIZEM CD 240 MG PO (08:37)
--- NOTE | 2025-01-16 09:46 | W.PN.PUL.V3 ---
Today's Communication / Plan
-
No change in Decadron
Attempt to wean oxygen
Atrial fibrillation rate controlled
Convert to oral diltiazem and Eliquis.
Assessment
-
69-year-old male past medical history of severe COPD on 4 L chronic oxygen, hypertension, HLD, presenting with shortness of breath and hypoxic to 64% today. �He was feeling lightheadedness. �Patient also having severe left to right abdominal pain
for several months. �Patient unable to get at the house to get evaluated. �Has been having intermittent constipation.
Being evaluated for [facility] lung transplant. �Colonoscopy was attempted 3 times but patient was never properly evacuated so lung transplant could not be pursued. He was last seen about 1-2 years ago. In ER, vital signs showed tachycardia up to 113.
�Hypoxic requiring 6 L oxygen. Labs show leukocytosis 11.8. Chest x-ray shows nodular density within the right lung peribronchial thickening suggesting small airway pneumonitis/bronchitis. �CT PE shows multiple small nodular opacities within the
anterior aspect of the right upper lobe which is likely pneumonia. �Severe changes of emphysema. �We are consulted for evaluation.
Acute on chronic hypoxemia, baseline use of 4L--placed on 6L
Severe end stage COPD/Emphysema, evaluated at [facility] for transplant-now with acute exacerbation
Former [id number]-year, quit 7 years ago
Possible PNA
Sinus tachycardia
Acute on chronic SOB
Met alkalosis, with chronic hypercarbia noted-compensated
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
Former smoker, 1PPD for 20 years then 2PPD for 20 more years, quit 5-10 years ago (total PY = 60)
CAD, minimal in 1 artery per patient during transplant w/u, no records
HTN
HLD
Plan
Respiratory decompensation- Patient with end-stage emphysema-patient states that he has not left his third floor condominium for a year because he cannot ambulate on the stairs and has not seen physicians because of this.
Chronic hypercapnia as well- ABG 01/09/25--198/7.41
Last seen [facility], 1-2 years ago and did not proceed with transplant testing
Respiratory status remains quite tenuous but slowly improving
Wean oxygen-establish new baseline prior to discharge.
Decadron 4 mg IV every 8 hours-no change today-consider reduction in the next 24 hours
Pulmicort nebulizers.
Duo nebs 4 times a day
Usually on Breztri
Mucinex if needed
Cultures reviewed
Blood cultures negative
Influenza negative
Unable to produce sputum
Rocephin and azithromycin-finite course-eventually convert to azithromycin 500 mg Gvioyj-Zsbjbkian-Ayfzla
Cardiac w/u at [facility] reportedly good
H/o HTN, he states he had minimal CAD in 1 artery
Cardiology evaluation-correspondence reviewed
Follow-up chest x-ray
Diltiazem drip-converted to oral
Heparin drip-converted to Eliquis
DVT prophylaxis-on Lovenox.
Nutrition
Early mobilization/PT/OT
We did discuss that if he does not improve with more time on IV abx and steroids that we would need to discuss end of life discussions
If he improves, he would need to see [facility] again as OP to qualify for transplant
Will need outpatient pulmonary evaluation in their office for PFTs and 6MWT
Dr. Osuna reviewed with patient, sister and on the phone at bedside-01/12/2025
Patient expressed wishes to possibly follow up locally-we will provide information for this-Consider chronic low-dose steroids, azithromycin, Ohtuvyre nebulizers, Daliresp, Biologics, pulmonary rehabilitation, [place] valves, and transplantation
Diagnostic Data
Chest X-Ray: 01/08/25- Volume loss of the left hemithorax with shift of the mediastinum toward the left. Bands of increased opacity within the left mid to lower lung, most likely representing scarring and/or chronic atelectasis. The right lung
appears hyperinflated, findings suggestive of emphysema. Subtle small nodular density suggested within the right lung with peribronchial thickening, suggesting the possibility of small airway pneumonitis and/or bronchitis. Mild blunting of the left
lateral costophrenic angle is most likely chronic pleural thickening, although a small left pleural effusion is also possible. Overall cardiac silhouette size appears within normal limits with no findings to suggest pulmonary edema. Mild
dextroconvex scoliosis centered in the midthoracic spine.
CT Scan: CHEST 01/08/25- Examination is negative for pulmonary embolism. Volume loss of the left hemithorax with bands of scarring/chronic atelectasis within the left lung. Severe changes of emphysema. Multiple small nodular opacities within the
anterior aspect of the right upper lobe, which is likely pneumonia. 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 Fatty infiltration the liver.
Reports and relevant images were personally reviewed.
Subjective Data
-
Date of Service:
Date of Service: January 16, 2025
Chief Complaint: Pulmonary Follow Up and Dyspnea Follow Up
Subjective:
Still with significant shortness of breath with minimal exertion, no chest pain or abdominal pain
Review of Systems
General: Other (Per HPI)
Objective Data
Data Reviewed
Vital Signs / I&O:
Vital Signs
Temp Pulse Resp BP Pulse Ox
97.7 F 80 17 123/72 93
01/16/25 02:58 01/16/25 08:12 01/16/25 08:12 01/16/25 06:00 01/16/25 08:14
Intake and Output
01/15/25 01/16/25 01/17/25
06:59 06:59 06:59
Intake Total 1920 / 1920
Output Total 2550 / 2550 1300 / 1300
Balance -2550 / -2550 620 / 620
SaO2: 93
Nasal Cannula flow liters per minute: 8
Physical Exam
General: Respiratory Distress (None at rest), Comfortable and Other (NAD)
HEENT: Normocephalic, Anicteric and Moist Mucous Membranes
Cardiovascular: Irregular Rhythm
Respiratory: Clear ( diminished breath sounds, prolonged expiratory time), Wheeze, Crackles (n), Non-Labored Respirations, Accessory Resp Muscle Use (n), Stridor (n) and Other (Prolonged expiratory phase-poor air movement)
GI: Soft, Non Distended and Non Tender
Neurology: Awake, Alert and No Motor Deficits
Skin: Warm, Dry, Good Color, Cyanosis (n) and Jaundice
Labs/Micro/Reports
Lab Data
01/16/25 03:06
01/16/25 03:06
Laboratory Results
01/15/25 01/15/25 01/16/25
11:26 18:32 03:06
APTT 58.1 H 60.3 H 125.0 H
Microbiology
01/08/25 19:31 Blood/Venous Blood Culture - Final
No Growth - Final Report
01/08/25 19:29 Blood/Venous Blood Culture - Final
No Growth - Final Report
--- NOTE | 2025-01-16 10:30 | W.PN.HOSP.TC ---
Addendum entered and electronically signed by Rohit Issa MD 01/16/25 10:38:
Hyperkalemia-potassium 5.5. Noted slightly on the higher side yesterday 5.1
No meds to account for it.
Doubt it is related to IV heparin as note prior to start of it as well.
Cr is ok.
Rule out retention
Total time spent on today's encounter was 52 minutes which included time spent in counseling the patient/family regarding diagnosis and treatment plan as listed above, goals of care, and symptom management. Case was discussed with nursing staff,
specialists, and care coordinators/case management. All labs and imaging personally reviewed by me. Remainder the time spent in detailed review of previous records, lab data, imaging, and other medical provider documentation.
Original Note:
Today's Communication/Plan
-
Continue with antibiotics
Wean steroids per pulmonary
Switch from IV heparin to oral Eliquis today. Case management to look into the cost of Eliquis.
Continue with p.o. uJs.
Assessment / Plan
Assessment / Plan
pt is a 69 year old male
Acute on chronic Hypoxic respiratory failure secondary to Right upper lobe pneumonia
Severe Emphysema on chronic 4 L nasal cannula (Former smoker 40-year 2 to 3 pack a day quit 7 years ago)
End-stage COPD with flare now-evaluated by lung transplant center at [place] and he backed out and hasnt followed with them in a while
Compensated chronic respiratory acidosis.
House bound on his 3 floor condo as he cant make it on steps!
Microbiology testing so far nondiagnostic. Not bacteremic.
Continue with antibiotics for pneumonia- finish 10 day course. Finished 5 d Zithromax .
Improved oxygenation-currently on 4 L which is his home FiO2
Continue with steroids IV and taper per pulmonary.
Patient now wants to relook at lung transplant evaluation and he would follow-up with [place] as an outpatient.
Consider BiPAP at [facility] at home due to chronic hypercapnia.
No evidence of heart failure currently.
New onset of atrial fibrillation with RVR-symptomatic with chest discomfort with onset. Now back in sinus rhythm. Cardizem drip switched to oral Cardizem. IV heparin drip switched to oral Eliquis today as no planned procedures. Case management
to look into the cost of Eliquis. Echocardiogram with normal EF no significant valvular abnormality. Prescient cardiology input.
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 Appreciate GI input who feels this is an incidental finding and not related to his symptoms. GI signed off.
Continue with PPI
Mild hyperglycemia-- HgbA1c 5.4% this admission--likely due to steroids
Essential HTN--Home regimen consist of Cardizem 240 mg daily, HCTZ 12.5 mg daily, KCl 10 mEq-- Blood pressure under goal. Cardizem restarted back for atrial fibrillation.
HLD--Home regimen of Crestor 10 mg at bedtime, continue while inpatient
DVT proph--Subcu Lovenox
code status--Full code
Portions of this chart may have been created with voice recognition software. Occasional wrong word or 'sound alike' substitutions may have occurred due to the inherent limitations of voice recognition software.
Anticipated Discharge: > 48 hours
Subjective/Interval History
-
Date of Service: January 16, 2025
Feels very deconditioned. Shortness of breath on minimal exertion now compared to home.
FiO2 decreased to 4 L which is his home FiO2. Breathing is okay at rest. No chest pain. No palpitations.
No nausea vomiting. No fever or chills.
Objective Data
-
Labs:
Laboratory Results
01/16/25 01/16/25
03:06 09:45
WBC 10.5
Hgb 12.0 L
Hct 40.8
Plt Count 263
APTT 125.0 H Pending
Sodium 135
Potassium 5.5 H
Chloride 98
Carbon Dioxide 35 H
BUN 24 H
Creatinine 0.8
Glucose 171 H
Calcium 8.2 L
Vital Signs:
Vital Signs
Temp Pulse Resp BP Pulse Ox
97.7 F 80 17 123/72 93
01/16/25 02:58 01/16/25 08:12 01/16/25 08:12 01/16/25 06:00 01/16/25 09:46
I&O
01/15/25 01/16/25 01/17/25
06:59 06:59 06:59
Intake Total 1919 / 1919
Output Total 2550 / 2550 1300 / 1300
Balance -2550 / -2550 620 / 620
Physical Exam
-
General: Comfortable
Respiratory: Non Labored Respirations and Decreased Breath Sounds (in general as before ;no added sounds today); Negative Accessory Resp Muscle Use
Cardiac: Regular Rhythm and S1/S2; Negative Tachycardic
Musculoskeletal: Edema, Right Lower Extrem (trace) and Edema, Left Lower Extrem
Neuro: AO x 3
Psych: Calm; Negative Confused
Data Reviewed
-
Labs: Labs Reviewed by me
[2025-01-16] MEDS: LOKELMA 5 GRAM PO (12:00)
[2025-01-16] MEDS: ELIQUIS 5 MG PO ×2 (12:00→20:16)
--- NOTE | 2025-01-16 14:47 | W.PN.CD ---
Today's Communication / Plan
-
Maintain current rate control.
Primary prevention with apixaban 5 mg BID.
Increase rosuvastatin to 20 mg daily.
Furosemide 40 mg IV x1.
Impression / Plan
-
Impression/Plan: 69M with severe COPD requiring 4 L nasal cannula of oxygen supplementation, nonobstructive CAD, hypertension, and hypercholesterolemia who presented 01/08/2025 with a chief complaint of shortness of breath, subsequently developing
new atrial fibrillation with rapid ventricular response.
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
#Hypoxemic respiratory failure
-Acute on chronic, requiring 4LNC supplemental O2 at home.
-Etiology is multifactorial (known COPD, new RUL community aquired PNA).
-Management through primary service/pulmonary - continue ceftriaxone, nebulizers and steroids. Azithromycin discontinued.
-Weight is up, raising concern for volume retention, particularly with RV dilation on echo.
-Furosemide 40 mg IV x1 and monitor response.
#Atrial fibrillation
-Paroxysmal, new diagnosis - onset 01/15/2025 at 03:26.
-Currently in NSR.
-Rate/rhythm control with diltiazem 240 mg PO daily. No beta sierra given significant lung disease.
-[id number]: score at least 2 (HTN, age 65-74)
-Oral Anticoagulation: Apixaban 5 mg twice daily, case management to [place].
-Echocardiogram shows dilated RV with normal RV function. Possible early changes of cor pulmonale?
#COPD
-Acute exacerbation, severe.
-He is considering following back up with [place] regarding transplant.
-Management by primary service + pulmonary.
#Non-occlusive CAD
-Chronic, by report.
-No role for ASA given need for apixaban.
-Primary prevention with high dose, high potency statin. Increase rosuvastatin to 20 mg daily.
#Hypertension
-Chronic, stable.
-Stable on diltiazem 240 mg daily.
#Hypercholesterolemia
-Chronic, stable.
-Increase rosuvastatin to 20 mg.
-Goal LDL < 55.
Subjective/Interval History:
Patient converted to NSR last night.
Apixaban started.
Diltiazem converted to PO.
Weight is up 3.5 kg from yesterday (?).
SaO2 93% on 8L Mid-Flow.
DATA:
CT Chest, 01/08/2025:
IMPRESSION:
Examination is negative for urinary embolism.
Volume loss of the left hemithorax with bands of scarring/chronic atelectasis within the left lung.
Severe changes of emphysema.
Multiple small nodular opacities within the anterior aspect of the right upper lobe, which is likely pneumonia.
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
Fatty infiltration the liver.
TTE, 01/15/2025:
SUMMARY
1. Normal left ventricular size, and systolic function. Estimated LVEF 55-60%.
2. Aortic valve sclerosis without stenosis.
3. Mildly enlarged RV size with normal systolic function.
4. Mild tricuspid regurgitation. Estimated pulmonary artery pressure of 37 mmHg assuming a right atrial pressure of 8 mmHg. Mildly elevated PASP.
5. No prior study for comparison.
Physical Exam
Vital Signs/Labs
Vital Signs
Temp Pulse Resp BP Pulse Ox
36.8 C 88 23 123/72 93
01/16/25 11:00 01/16/25 10:52 01/16/25 10:52 01/16/25 06:00 01/16/25 11:03
01/15/25 01/16/25 01/17/25
11:59 11:59 11:59
Actual Weight 97.7 kg 101.2 kg
01/16/25 03:06
01/16/25 03:06
APTT Cancelled 01/16/25 09:45
Magnesium 2.4 mg/dl (1.6-2.3) H 10/14/25 04:31
01/09/25 01/15/25
07:29 04:31
Oik-Z-Xkegukefiun Pept 882 311
LAB Results
01/15/25 01/15/25 01/15/25
05:01 13:00 21:00
Troponin I 0.013 Cancelled Cancelled
Physical Exam
Constitutional: No acute distress and Comfortable
EENT: Anicteric and Moist mucous membranes
Cardiovascular: Rhythm & rate is regular, Pedal edema is absent, JVD pressure is normal, S1S2 is normal and Murmur/rub/gallop absent
Respiratory: Respiratory effort normal and Other (Decreased throughout.)
GI: Soft, Distention absent, Flat, Non tender and Normal bowel sounds
Neuro/Psych: AO x 3
Data Reviewed
-
Date of Service: January 16, 2025
Medical Decision Making: Reviewed Test Results, Independent Historian Assessment and Test Interpretation
EKG: Tracing Personally Visualized and interpreted and Report Reviewed by me
Echo: Report Reviewed by me
X-Ray/CT/US/MRI/NUC/PET: Image Personally Visualized and interpreted and Report Reviewed by me
Medical Tests (PFT, Pathology etc): Report Reviewed by me
Labs: Labs Reviewed by me
Old Records: Reviewed
[2025-01-16] MEDS: LASIX 40 MG IV (17:29)
[2025-01-16] MEDS: STERILE WATER FOR INJECTION 10 ML IV (20:15)
[2025-01-16] MEDS: CRESTOR 10 MG PO (20:16)
[2025-01-16] MEDS: ROCEPHIN 1000 MG IV (20:16)
[2025-01-17] VITALS (12 sets, daily range): BP systolic 102–138; BP diastolic 63–101; PULSE 2–91; O2SAT 94; BMI 30.7
[2025-01-17] MEDS: DECADRON 4 MG IV ×4 (01:00→23:59)
--- NOTE | 2025-01-17 05:53 | PTCARENOTE ---
Caring for pt overnight. Remains on 10LMF, NSR. OOB to chair. IV steroids. VSS. Denies pain. CAMARENA, tachypnea, orthopnea & pursed lipped breathing. Will continue to monitor.
[2025-01-17 06:15] LABS: Blood Urea Nitrogen 24 mg/dl (9-20); Calcium 8.7 mg/dl (8.4-10.2); Chloride 95 mmol/L (98-107); Estimated Creatinine Clearance 111 ml/min; Glucose 125 mg/dl (70-99); Potassium 5.3 mmol/L (3.5-5.1); Sodium 136 mmol/L (135-145); eGFR > 60.00
[2025-01-17 06:27] LABS: Carbon Dioxide 41 mmol/L (22-30)
[2025-01-17] MEDS: DUONEB 3 ML INH ×4 (07:23→20:27)
[2025-01-17] MEDS: PULMICORT 0.5 MG INH ×2 (07:23→20:27)
[2025-01-17] MEDS: ZITHROMAX 500 MG PO (08:26)
[2025-01-17] MEDS: PROTONIX 40 MG PO (08:26)
[2025-01-17] MEDS: CARDIZEM CD 240 MG PO (08:26)
[2025-01-17] MEDS: ELIQUIS 5 MG PO ×2 (08:26→19:05)
--- NOTE | 2025-01-17 08:52 | W.PN.HOSP.TC ---
Today's Communication/Plan
-
wean O2
follow pulm/cards recs
Assessment / Plan
Assessment / Plan
Assessment:
Acute on chronic Hypoxic respiratory failure secondary to Right upper lobe pneumonia
- baseline O2 is 4L, currently 7L NC
- wean as able to baseline
- home O2 testing closer to [place]
Severe Emphysema on chronic 4 L nasal cannula (Former smoker 40-year 2 to 3 pack a day quit 7 years ago)
End-stage COPD with flare now-evaluated by lung transplant center at [place] and he backed out and hasnt followed with them in a while
Compensated chronic respiratory acidosis.
House bound on his 3 floor condo as he cant make it on steps even
- continue IV steroids
- continue Pulmicort nebs
- Continue Duonebs
- may need BiPAP or Trilogoy setup at home
- would need local f/u with Pulm as well as transplant evaluation ([place] or [place])
CAP
- continue Rocephin, day 09/11
- finished acute Azithro course; now continue 3x/weekly M/W/F dosing
New Parox A. Fib
- now back in NSR
- continue oral Cardizem/Eliquis
- Echo: with normal EF, dilvated RV with normal RV function
- CBC cards following
nonocclusive CAD
- continue high potency Crestor
Acute on chronic abdominal pain
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 Appreciate GI input who feels this is an incidental finding and not related to his symptoms.
- GI signed off.
- continue with PPI
Mild hyperglycemia
- HgbA1c 5.4% this admission
- likely due to steroids
Essential HTN
- Home regimen consist of Cardizem 240 mg daily, HCTZ 12.5 mg daily, KCl 10 mEq
- Blood pressure under goal. cardizem restarted back for atrial fibrillation.
HLD
- continue high potency Crestor
Hyperkalemia
- unclear etiology
- Lokelma x 2nd dose today
- monitor BMP
DVT ppx: Lovenox
Code: Full
Anticipated Discharge: 24 - 48 hours
Subjective/Interval History
-
Date of Service: January 17, 2025
reports breathing improved, less wheezing
no chest pain
on 7L (baseline 4L NC)
Objective Data
-
Labs:
Laboratory Results
01/17/25
05:17
Sodium 136
Potassium 5.3 H
Chloride 95 L
Carbon Dioxide 41 H
BUN 24 H
Creatinine 0.8
Glucose 125 H
Calcium 8.7
Vital Signs:
Vital Signs
Temp Pulse Resp BP Pulse Ox
97.7 F 73 18 102/71 95
01/17/25 07:25 01/17/25 07:26 01/17/25 07:26 01/17/25 04:00 01/17/25 08:35
I&O
01/16/25 01/17/25 01/18/25
06:59 06:59 06:59
Intake Total 1920 / 1920
Output Total 1300 / 1300 2600 / 2600
Balance 620 / 620 -2600 / -2600
Physical Exam
-
General: No Apparent Distress
HEENT: Normocephalic and Atraumatic
Respiratory: Wheezes (faint. Prolonged expiration) and Decreased Breath Sounds
Cardiac: Regular Rhythm and S1/S2
GI: Soft and Nontender
Musculoskeletal: No Edema
Neuro: AO x 3
Psych: Calm
Data Reviewed
-
Total Time Spent with Patient (in minutes): 44
Labs: Labs Reviewed by me
--- NOTE | 2025-01-17 09:40 | W.PN.CD ---
Today's Communication / Plan
-
Furosemide 80 mg IV x1.
BMP this afternoon.
If CO2 continues to rise, we will add acetazolamide.
Impression / Plan
-
Impression/Plan: 69M with severe COPD requiring 4 L nasal cannula of oxygen supplementation, nonobstructive CAD, hypertension, and hypercholesterolemia who presented 01/08/2025 with a chief complaint of shortness of breath, subsequently developing
new atrial fibrillation with rapid ventricular response.
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
#Hypoxemic respiratory failure
-Acute on chronic, requiring 4LNC supplemental O2 at home.
-Etiology is multifactorial (known COPD, new RUL community aquired PNA).
-Management through primary service/pulmonary - continue ceftriaxone, nebulizers and steroids. Azithromycin discontinued.
-Weight is up, raising concern for volume retention, particularly with RV dilation on echo.
-Furosemide 80 mg IV x1 now and monitor. Repeat BMP this afternoon. If BMP shows CO2 rising (chronic metabolic alkylosis due to chronic respiratory acidosis, now exacerbated with contraction alkylosis) we will add acetazolamide.
#Atrial fibrillation
-Paroxysmal, new diagnosis - onset 01/15/2025 at 03:26.
-Currently in NSR.
-Rate/rhythm control with diltiazem 240 mg PO daily. No beta sierra given significant lung disease.
-[id number]: score at least 2 (HTN, age 65-74)
-Oral Anticoagulation: Apixaban 5 mg twice daily, case management to [place].
-Echocardiogram shows dilated RV with normal RV function. Possible early changes of cor pulmonale?
#COPD
-Acute exacerbation, severe.
-He is considering following back up with [place] regarding transplant.
-Management by primary service + pulmonary.
#Non-occlusive CAD
-Chronic, by report.
-No role for ASA given need for apixaban.
-Continue rosuvastatin to 20 mg daily.
#Hypertension
-Chronic, stable.
-Stable on diltiazem 240 mg daily.
#Hypercholesterolemia
-Chronic, stable.
-Continue rosuvastatin to 20 mg.
-Goal LDL < 55.
Subjective/Interval History:
Patient continues to require higher than normal supplemental oxygen, now between 8-10 L/m by mid-flow.
Weight is up 1.5 kg from yesterday, 10.6 kg from admission (though this was for PNA, so likely under his normal weight).
CO2 up to 41.
DATA:
CT Chest, 01/08/2025:
IMPRESSION:
Examination is negative for urinary embolism.
Volume loss of the left hemithorax with bands of scarring/chronic atelectasis within the left lung.
Severe changes of emphysema.
Multiple small nodular opacities within the anterior aspect of the right upper lobe, which is likely pneumonia.
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
Fatty infiltration the liver.
TTE, 01/15/2025:
SUMMARY
1. Normal left ventricular size, and systolic function. Estimated LVEF 55-60%.
2. Aortic valve sclerosis without stenosis.
3. Mildly enlarged RV size with normal systolic function.
4. Mild tricuspid regurgitation. Estimated pulmonary artery pressure of 37 mmHg assuming a right atrial pressure of 8 mmHg. Mildly elevated PASP.
5. No prior study for comparison.
Physical Exam
Vital Signs/Labs
Vital Signs
Temp Pulse Resp BP Pulse Ox
36.5 C 73 18 102/71 93
01/17/25 07:25 01/17/25 07:26 01/17/25 07:26 01/17/25 04:00 01/17/25 08:36
01/15/25 01/16/25 01/17/25
11:59 11:59 11:59
Actual Weight 97.7 kg 101.2 kg 102.7 kg
01/16/25 03:06
01/17/25 05:17
APTT Cancelled 01/16/25 09:45
Magnesium 2.4 mg/dl (1.6-2.3) H 01/15/25 04:31
01/09/25 01/15/25
07:29 04:31
Yhh-I-Klzlhqseiov Pept 882 311
LAB Results
01/15/25 01/15/25 01/15/25
05:01 13:00 21:00
Troponin I 0.013 Cancelled Cancelled
Physical Exam
Constitutional: No acute distress and Comfortable
EENT: Anicteric and Moist mucous membranes
Cardiovascular: Rhythm & rate is regular, Pedal edema present, JVD present, S1S2 is normal and Murmur/rub/gallop absent
Respiratory: Respiratory effort normal and Other (Decreased throughout.)
GI: Soft, Distention absent, Flat, Non tender and Normal bowel sounds
Neuro/Psych: AO x 3
Data Reviewed
-
Date of Service: January 17, 2025
Medical Decision Making: Reviewed Test Results, Independent Historian Assessment and Test Interpretation
EKG: Tracing Personally Visualized and interpreted and Report Reviewed by me
Echo: Tracing Personally Visualized and interpreted and Report Reviewed by me
X-Ray/CT/US/MRI/NUC/PET: Image Personally Visualized and interpreted and Report Reviewed by me
Labs: Labs Reviewed by me
Old Records: Reviewed
--- NOTE | 2025-01-17 09:55 | W.PN.PUL.V3 ---
Today's Communication / Plan
-
No change in Decadron
Continue nebulizers
Try BiPAP
Assessment
-
69-year-old male past medical history of severe COPD on 4 L chronic oxygen, hypertension, HLD, presenting with shortness of breath and hypoxic to 64% today. �He was feeling lightheadedness. �Patient also having severe left to right abdominal pain
for several months. �Patient unable to get at the house to get evaluated. �Has been having intermittent constipation.
Being evaluated for [facility] lung transplant. �Colonoscopy was attempted 3 times but patient was never properly evacuated so lung transplant could not be pursued. He was last seen about 1-2 years ago. In ER, vital signs showed tachycardia up to 113.
�Hypoxic requiring 6 L oxygen. Labs show leukocytosis 11.8. Chest x-ray shows nodular density within the right lung peribronchial thickening suggesting small airway pneumonitis/bronchitis. �CT PE shows multiple small nodular opacities within the
anterior aspect of the right upper lobe which is likely pneumonia. �Severe changes of emphysema. �We are consulted for evaluation.
Acute on chronic hypoxemia, baseline use of 4L--placed on 6L
Severe end stage COPD/Emphysema, evaluated at [facility] for transplant-now with acute exacerbation
Former [id number]-year, quit 7 years ago
Possible PNA
Sinus tachycardia
Acute on chronic SOB
Met alkalosis, with chronic hypercarbia noted-compensated
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
Former smoker, 1PPD for 20 years then 2PPD for 20 more years, quit 5-10 years ago (total PY = 60)
CAD, minimal in 1 artery per patient during transplant w/u, no records
HTN
HLD
Plan
Respiratory decompensation- Patient with end-stage emphysema-patient states that he has not left his third floor condominium for a year because he cannot ambulate on the stairs and has not seen physicians because of this.
Chronic hypercapnia as well- ABG 01/09/25--67/198/7.41
Last seen [facility], 1-2 years ago and did not proceed with transplant testing
Respiratory status remains quite tenuous but slowly improving
Wean oxygen-establish new baseline prior to discharge.
Decadron 4 mg IV every 8 hours-no change today-consider reduction in the next 24 hours
Pulmicort nebulizers.
Duo nebs 4 times a day
Usually on Breztri
Mucinex if needed
Tried BiPAP-discussed with him to decrease work of breathing and help with hypercapnia-if tolerates then might try to get [facility] machine approved for him in the outpatient setting
Cultures reviewed
Blood cultures negative
Influenza negative
Unable to produce sputum
Rocephin and azithromycin-finite course-eventually convert to azithromycin 500 mg Leczhf-Grtniddml-Tcyzod
Cardiac w/u at [place] reportedly good
H/o HTN, he states he had minimal CAD in 1 artery
Cardiology evaluation-correspondence reviewed
Follow-up chest x-ray
Diltiazem drip-converted to oral
Heparin drip-converted to Eliquis
DVT prophylaxis-on Lovenox.
Nutrition
Early mobilization/PT/OT
We did discuss that if he does not improve with more time on IV abx and steroids that we would need to discuss end of life discussions
If he improves, he would need to see [facility] again as OP to qualify for transplant
Will need outpatient pulmonary evaluation in their office for PFTs and 6MWT
Dr. Osuna reviewed with patient, sister and on the phone at bedside-01/12/2025
Patient expressed wishes to possibly follow up locally-we will provide information for this-Consider chronic low-dose steroids, azithromycin, Ohtuvyre nebulizers, Daliresp, Biologics, pulmonary rehabilitation, Elbert valves, and transplantation
Diagnostic Data
Chest X-Ray: 01/08/25- Volume loss of the left hemithorax with shift of the mediastinum toward the left. Bands of increased opacity within the left mid to lower lung, most likely representing scarring and/or chronic atelectasis. The right lung
appears hyperinflated, findings suggestive of emphysema. Subtle small nodular density suggested within the right lung with peribronchial thickening, suggesting the possibility of small airway pneumonitis and/or bronchitis. Mild blunting of the left
lateral costophrenic angle is most likely chronic pleural thickening, although a small left pleural effusion is also possible. Overall cardiac silhouette size appears within normal limits with no findings to suggest pulmonary edema. Mild
dextroconvex scoliosis centered in the midthoracic spine.
CT Scan: CHEST 01/08/25- Examination is negative for pulmonary embolism. Volume loss of the left hemithorax with bands of scarring/chronic atelectasis within the left lung. Severe changes of emphysema. Multiple small nodular opacities within the
anterior aspect of the right upper lobe, which is likely pneumonia. 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 Fatty infiltration the liver.
Reports and relevant images were personally reviewed.
Subjective Data
-
Date of Service:
Date of Service: January 17, 2025
Chief Complaint: Pulmonary Follow Up and Dyspnea Follow Up
Subjective:
Still significant shortness of breath with minimal exertion, no chest pain, no productive cough, no abdominal pain
Review of Systems
General: Other ( per HPI)
Objective Data
Data Reviewed
Vital Signs / I&O:
Vital Signs
Temp Pulse Resp BP Pulse Ox
97.7 F 73 18 102/71 93
01/17/25 07:25 01/17/25 07:26 01/17/25 07:26 01/17/25 04:00 01/17/25 08:36
Intake and Output
01/16/25 01/17/25 01/18/25
06:59 06:59 06:59
Intake Total 1920 / 1920
Output Total 1300 / 1300 2600 / 2600
Balance 620 / 620 -2600 / -2600
SaO2: 93
Nasal Cannula flow liters per minute: 8
Physical Exam
General: Respiratory Distress (None at rest), Comfortable and Other (NAD)
HEENT: Normocephalic, Anicteric and Moist Mucous Membranes
Cardiovascular: Irregular Rhythm
Respiratory: Clear ( diminished breath sounds, prolonged expiratory time), Wheeze, Crackles (n), Non-Labored Respirations, Accessory Resp Muscle Use (n), Stridor (n) and Other (Prolonged expiratory phase-poor air movement)
GI: Soft, Non Distended and Non Tender
Neurology: Awake, Alert and No Motor Deficits
Skin: Warm, Dry, Good Color, Cyanosis (n) and Jaundice
Labs/Micro/Reports
Lab Data
01/16/25 03:06
Laboratory Results
01/16/25
09:45
APTT Cancelled
[2025-01-17] MEDS: LOKELMA 10 GRAM PO (10:07)
[2025-01-17] MEDS: LASIX 80 MG IV (10:07)
--- NOTE | 2025-01-17 13:44 | PTCARENOTE ---
Pt's assessment as documented. Aox3. NSR on tele monitor. Sating low to mid 90's on 9L, weaning as tolerated to keep sats above 90. Medications administered as ordered, see MAR. Ringing appropriately, call hernández within reach.
[2025-01-17 15:13] LABS: Blood Urea Nitrogen 27 mg/dl (9-20); Calcium 8.6 mg/dl (8.4-10.2); Chloride 90 mmol/L (98-107); Estimated Creatinine Clearance 99 ml/min; Glucose 161 mg/dl (70-99); Potassium 4.8 mmol/L (3.5-5.1); Sodium 132 mmol/L (135-145); eGFR > 60.00
--- NOTE | 2025-01-17 15:30 | VNURNOTE ---
Home Health Liaison met with patient at bedside to discuss [facility] nurse/therapy, visits, schedule and homebound status. Patient is agreeable and understands that visits at home will be 2-3 x per week to assess and teach medical management. He is
not current with PCP; states it's been 2 years since last visit. He is aware to make follow up appt [facility] after DC. [facility] can see him after seen by PCP. Pt in agreement.
Patient is aware that [facility] will contact them within a few days after discharge from and will see after PCP appt. Provided contact number for [facility].
Pt current with [facility] D[facility] for home 02- concentrator goes up to 5L per pt. Currently on 9L, watch if increased 02 needs at DC, will need updated Rx and clinicals to [facility].
[facility] referral completed in [facility].
[2025-01-17 15:31] LABS: Carbon Dioxide 39 mmol/L (22-30)
--- NOTE | 2025-01-17 15:53 | CM ---
F/U: Hospitalist asked that patient be set up with Home VN for his CHF so spoke to patient who agreed to [facility]. [facility] food service sales representatives Kalee informed. Now Hospitalist is waiting for Pulmonary's recommendation because patient may need another concentrator
that can go up to 10 liters.
PLAN: Home w/ [facility] when ready.
[2025-01-17] MEDS: STERILE WATER FOR INJECTION 10 ML IV (19:05)
[2025-01-17] MEDS: ROCEPHIN 1000 MG IV (19:06)
[2025-01-17] MEDS: CRESTOR 20 MG PO (21:04)
[2025-01-18] VITALS (14 sets, daily range): BP systolic 82–145; BP diastolic 45–94; PULSE 2–90; O2SAT 96; BMI 29.2
--- NOTE | 2025-01-18 05:30 | RESPNOTE ---
PT was ordered BIPAP for HS use, this PT has never used it before, but the plan is to get him a home trilogy machine for HS. He was shown the mask and machine and all questions were answered that the PT and family had. He did excellent on the
BIPAP and wore it the whole night and is still currently wearing it and asleep. Will place again tonight.
--- NOTE | 2025-01-18 06:32 | PTCARENOTE ---
Caring for pt overnight. aaox3, NSR, Remains on 10LMF and desats with any kind of exertion. [place] [facility] [place] Trialed the BIpap overnight and pt did well, he wore it from [id number]. OOB to chair. Swelling in legs looks
worse than yesterday at start of shift but since he has been in bed with them elevated they have improved slightly. NO other issues. Will monitor.
[2025-01-18 06:33] LABS: Hematocrit 38.8 % (39.0-52.0); Hemoglobin 12.0 g/dL (13.0-18.0); Mean Corp Hgb Conc. 30.9 g/dL (33.0-37.0); Mean Corpuscular Volume 95.6 fL (80.0-94.0); Platelet Count 257 10^3/uL (130-400); Red Cell Dist. Width 13.9 % (11.5-14.5)
[2025-01-18 06:59] LABS: Blood Urea Nitrogen 29 mg/dl (9-20); Calcium 8.3 mg/dl (8.4-10.2); Chloride 92 mmol/L (98-107); Estimated Creatinine Clearance 98 ml/min; Glucose 138 mg/dl (70-99); Potassium 5.2 mmol/L (3.5-5.1); Sodium 133 mmol/L (135-145); eGFR > 60.00
--- NOTE | 2025-01-18 07:02 | W.PN.CD ---
Today's Communication / Plan
-
Change furosemide to 40 mg IV daily.
Continue to monitor weight, renal function, electrolytes.
RHC at some point (not necessarily this admission).
Impression / Plan
-
Impression/Plan: 69M with severe COPD requiring 4 L nasal cannula of oxygen supplementation, nonobstructive CAD, hypertension, and hypercholesterolemia who presented 01/08/2025 with a chief complaint of shortness of breath, subsequently developing
new atrial fibrillation with rapid ventricular response.
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
#Hypoxemic respiratory failure
-Acute on chronic, requiring 4LNC supplemental O2 at home.
-Etiology is multifactorial (known COPD, new RUL community aquired PNA).
-Management through primary service/pulmonary - continue ceftriaxone, nebulizers and steroids. Azithromycin discontinued.
-Weight has fallen 5 kg in 36 hours.
-Reduce furosemide to 40 mg IV daily and monitor for continued weight loss. HCO3 stable. No role for acetazolamide at the moment.
-He may benefit from RHC at some point to evaluate pulmonary pressures, particularly in light of possible/previous transplant workup and dilated RV.
#Atrial fibrillation
-Paroxysmal, new diagnosis - onset 01/15/2025 at 03:26.
-Currently in NSR.
-Rate/rhythm control with diltiazem 240 mg PO daily. No beta sierra given significant lung disease.
-[id number]: score at least 2 (HTN, age 65-74)
-Oral Anticoagulation: Apixaban 5 mg twice daily, case management to [place].
-Echocardiogram shows dilated RV with normal RV function. Possible early changes of cor pulmonale?
#COPD
-Acute exacerbation, severe.
-He is considering following back up with [facility] regarding transplant.
-Management by primary service + pulmonary.
#Non-occlusive CAD
-Chronic, by report.
-No role for ASA given need for apixaban.
-Continue rosuvastatin to 20 mg daily.
#Hypertension
-Chronic, stable.
-Stable on diltiazem 240 mg daily.
#Hypercholesterolemia
-Chronic, stable.
-Continue rosuvastatin to 20 mg.
-Goal LDL < 55.
Subjective/Interval History:
Weight down 5.2 kg.
Potassium up to 5.2.
Sodium 133.
BiPAP trialed overnight.
DATA:
CT Chest, 01/08/2025:
IMPRESSION:
Examination is negative for urinary embolism.
Volume loss of the left hemithorax with bands of scarring/chronic atelectasis within the left lung.
Severe changes of emphysema.
Multiple small nodular opacities within the anterior aspect of the right upper lobe, which is likely pneumonia.
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
Fatty infiltration the liver.
TTE, 01/15/2025:
SUMMARY
1. Normal left ventricular size, and systolic function. Estimated LVEF 55-60%.
2. Aortic valve sclerosis without stenosis.
3. Mildly enlarged RV size with normal systolic function.
4. Mild tricuspid regurgitation. Estimated pulmonary artery pressure of 37 mmHg assuming a right atrial pressure of 8 mmHg. Mildly elevated PASP.
5. No prior study for comparison.
Physical Exam
Vital Signs/Labs
Vital Signs
Temp Pulse Resp BP Pulse Ox
36.5 C 66 15 112/45 95
01/18/25 03:37 01/18/25 04:00 01/18/25 04:00 01/18/25 04:00 01/18/25 04:00
01/16/25 01/17/25 01/18/25
11:59 11:59 11:59
Actual Weight 101.2 kg 102.7 kg 97.5 kg
01/18/25 06:13
01/18/25 06:13
APTT Cancelled 01/16/25 09:45
Magnesium 2.4 mg/dl (1.6-2.3) H 01/15/25 04:31
01/09/25 01/15/25
07:29 04:31
Gha-V-Cucodwdddmb Pept 882 311
LAB Results
01/15/25 01/15/25
13:00 21:00
Troponin I Cancelled Cancelled
Physical Exam
Constitutional: No acute distress and Comfortable
EENT: Anicteric and Moist mucous membranes
Cardiovascular: Rhythm & rate is regular, Pedal edema present, Systolic murmur present and S1S2 is normal
Respiratory: Respiratory effort normal and Other (Decreased throughout)
GI: Soft, Distention absent, Flat, Non tender and Normal bowel sounds
Neuro/Psych: AO x 3
Data Reviewed
-
Date of Service: January 18, 2025
Medical Decision Making: Reviewed Test Results, Independent Historian Assessment and Test Interpretation
EKG: Tracing Personally Visualized and interpreted and Report Reviewed by me
Echo: Tracing Personally Visualized and interpreted and Report Reviewed by me
X-Ray/CT/US/MRI/NUC/PET: Image Personally Visualized and interpreted and Report Reviewed by me
Labs: Labs Reviewed by me
Old Records: Reviewed
[2025-01-18 07:19] LABS: Carbon Dioxide 40 mmol/L (22-30)
[2025-01-18] MEDS: PROTONIX 40 MG PO (07:35)
[2025-01-18] MEDS: ZITHROMAX 500 MG PO (07:35)
[2025-01-18] MEDS: DECADRON 4 MG IV ×3 (07:35→23:20)
[2025-01-18] MEDS: ELIQUIS 5 MG PO ×2 (07:35→20:45)
[2025-01-18] MEDS: CARDIZEM CD 240 MG PO (07:35)
[2025-01-18] MEDS: DUONEB 3 ML INH ×4 (07:57→19:52)
[2025-01-18] MEDS: PULMICORT 0.5 MG INH ×2 (07:57→19:52)
--- NOTE | 2025-01-18 09:09 | W.PN.HOSP.TC ---
Today's Communication/Plan
-
continue IV Lasix; monitor daily BMP
low K diet; Lokelma
follow Cards/Pulm recs
Assessment / Plan
Assessment / Plan
Assessment:
Acute on chronic Hypoxic respiratory failure secondary to Right upper lobe pneumonia
- baseline O2 is 4L, currently 7-9L NC
- wean as able to baseline
- home O2 testing closer to [place]
Severe Emphysema on chronic 4 L nasal cannula (Former smoker 40-year 2 to 3 pack a day quit 7 years ago)
End-stage COPD with flare now-evaluated by lung transplant center at [facility] [place] and he backed out and hasnt followed with them in a while
Compensated chronic respiratory acidosis.
House bound on his 3 floor condo as he cant make it on steps even
- continue IV steroids
- continue Pulmicort nebs
- Continue Duonebs
- may need BiPAP or Trilogoy setup at home; reviewed with Pulm
- would need local f/u with Pulm as well as transplant evaluation ([facility] or [place])
CAP
- continue Rocephin, day 10/11
- finished acute Azithro course; now continue 3x/weekly M/W/F dosing
New Parox A. Fib
- now back in NSR
- continue oral Cardizem/Eliquis
- Echo: with normal EF, dilated RV with normal RV function
- CBC cards following
Acute HFpEF
- IV Lasix; requires intensive monitoring of I/OS, weights, lytes
- consider Diamox if CO2 rises further
- CBC cards following
nonocclusive CAD
- continue high potency Crestor
Acute on chronic abdominal pain
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 Appreciate GI input who feels this is an incidental finding and not related to his symptoms.
- GI signed off.
- continue with PPI
Mild hyperglycemia
- HgbA1c 5.4% this admission
- likely due to steroids
Essential HTN
- Home regimen consist of Cardizem 240 mg daily, HCTZ 12.5 mg daily, KCl 10 mEq
- Blood pressure under goal. cardizem restarted back for atrial fibrillation.
HLD
- continue high potency Crestor
Hyperkalemia
- unclear etiology; could be dietary or steroid effect
- Lokelma, dose 3 today
- add low K diet
- Lasix may help
- monitor BMP
DVT ppx: Lovenox
Code: Full
Anticipated Discharge: > 48 hours
Subjective/Interval History
-
Date of Service: January 18, 2025
weight down 5lb per scales
tolerating IV Lasix
understands high K situation and dietary changes for it
Objective Data
-
Labs:
Laboratory Results
01/18/25
06:13
WBC 8.8
Hgb 12.0 L
Hct 38.8 L
Plt Count 257
Sodium 133 L
Potassium 5.2 H
Chloride 92 L
Carbon Dioxide 40 H
BUN 29 H
Creatinine 0.8
Glucose 138 H
Calcium 8.3 L
Vital Signs:
Vital Signs
Temp Pulse Resp BP Pulse Ox
98.2 F 82 20 112/45 93
01/18/25 08:00 01/18/25 07:58 01/18/25 07:58 01/18/25 04:00 01/18/25 08:03
I&O
01/17/25 01/18/25 01/19/25
06:59 06:59 06:59
Output Total 2600 / 2600 2950 / 2950
Balance -2600 / -2600 -2950 / -2950
Physical Exam
-
General: No Apparent Distress
HEENT: Normocephalic and Atraumatic
Respiratory: Decreased Breath Sounds
Cardiac: Regular Rhythm and S1/S2
GI: Soft
Musculoskeletal: Edema, Left Upper Extrem and Edema, Right Lower Extrem
Neuro: AO x 3
Psych: Calm
Data Reviewed
-
Total Time Spent with Patient (in minutes): 51
Labs: Labs Reviewed by me
--- NOTE | 2025-01-18 09:26 | W.PN.PUL.V3 ---
Today's Communication / Plan
-
Continue attempts at BiPAP-if tolerating, will consider arranging Trilogy ventilator for him-has end-stage COPD with hypercapnia
No change in steroids.
Finite course of antibiotics.
Slowly increase activity
Assessment
-
69-year-old male past medical history of severe COPD on 4 L chronic oxygen, hypertension, HLD, presenting with shortness of breath and hypoxic to 64% today. �He was feeling lightheadedness. �Patient also having severe left to right abdominal pain
for several months. �Patient unable to get at the house to get evaluated. �Has been having intermittent constipation.
Being evaluated for [facility] lung transplant. �Colonoscopy was attempted 3 times but patient was never properly evacuated so lung transplant could not be pursued. He was last seen about 1-2 years ago. In ER, vital signs showed tachycardia up to 113.
�Hypoxic requiring 6 L oxygen. Labs show leukocytosis 11.8. Chest x-ray shows nodular density within the right lung peribronchial thickening suggesting small airway pneumonitis/bronchitis. �CT PE shows multiple small nodular opacities within the
anterior aspect of the right upper lobe which is likely pneumonia. �Severe changes of emphysema. �We are consulted for evaluation.
Acute on chronic hypoxemia, baseline use of 4L--placed on 6L
Severe end stage COPD/Emphysema, evaluated at [facility] for transplant-now with acute exacerbation
Former [id number]-year, quit 7 years ago
Possible PNA
Sinus tachycardia
Acute on chronic SOB
Met alkalosis, with chronic hypercarbia noted-compensated
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
Former smoker, 1PPD for 20 years then 2PPD for 20 more years, quit 5-10 years ago (total PY = 60)
CAD, minimal in 1 artery per patient during transplant w/u, no records
HTN
HLD
Plan
Respiratory decompensation- Patient with end-stage emphysema-patient states that he has not left his third floor condominium for a year because he cannot ambulate on the stairs and has not seen physicians because of this.
Chronic hypercapnia as well- ABG 01/09/25--67/198/7.41
Last seen [facility] 1-2 years ago and did not proceed with transplant testing
Respiratory status remains quite tenuous but slowly improving
Wean oxygen-establish new baseline prior to discharge.
Decadron 4 mg IV every 8 hours-no change today-consider reduction in the next 24 hours
Pulmicort nebulizers.
Duo nebs 4 times a day
Usually on Breztri
Mucinex if needed
Tried BiPAP-discussed with him to decrease work of breathing and help with hypercapnia-if tolerates then might try to get trilogy machine approved for him in the outpatient setting
Cultures reviewed
Blood cultures negative
Influenza negative
Unable to produce sputum
Rocephin and azithromycin-finite course-eventually convert to azithromycin 500 mg Nqndrn-Sciezqnjg-Nunplq
Cardiac w/u at [facility] reportedly good
H/o HTN, he states he had minimal CAD in 1 artery
Cardiology evaluation-correspondence reviewed
Follow-up chest x-ray
Diltiazem drip-converted to oral
Heparin drip-converted to Eliquis
DVT prophylaxis-on Eliquis
Nutrition
Early mobilization/PT/OT
We did discuss that if he does not improve with more time on IV abx and steroids that we would need to discuss end of life discussions
If he improves, he would need to see [facility] again as OP to qualify for transplant-multiple follow-up locally as well
Will need outpatient pulmonary evaluation in their office for PFTs and 6MWT
Patient expressed wishes to possibly follow up locally-we will provide information for this-Consider chronic low-dose steroids, azithromycin, Ohtuvyre nebulizers, Daliresp, Biologics, pulmonary rehabilitation, [place] valves, and transplantation
Dr. Osuna reviewed with patient, sister and on the phone at bedside-01/12/2025
Diagnostic Data
Chest X-Ray: 01/08/25- Volume loss of the left hemithorax with shift of the mediastinum toward the left. Bands of increased opacity within the left mid to lower lung, most likely representing scarring and/or chronic atelectasis. The right lung
appears hyperinflated, findings suggestive of emphysema. Subtle small nodular density suggested within the right lung with peribronchial thickening, suggesting the possibility of small airway pneumonitis and/or bronchitis. Mild blunting of the left
lateral costophrenic angle is most likely chronic pleural thickening, although a small left pleural effusion is also possible. Overall cardiac silhouette size appears within normal limits with no findings to suggest pulmonary edema. Mild
dextroconvex scoliosis centered in the midthoracic spine.
CT Scan: CHEST 01/08/25- Examination is negative for pulmonary embolism. Volume loss of the left hemithorax with bands of scarring/chronic atelectasis within the left lung. Severe changes of emphysema. Multiple small nodular opacities within the
anterior aspect of the right upper lobe, which is likely pneumonia. 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 Fatty infiltration the liver.
Reports and relevant images were personally reviewed.
Subjective Data
-
Date of Service:
Date of Service: January 18, 2025
Chief Complaint: Pulmonary Follow Up and Dyspnea Follow Up
Subjective:
Still short of breath with minimal exertion, tried BiPAP for 4 hours and tolerated, no chest pain, abdominal pain
Review of Systems
General: Other ( Per HPI)
Objective Data
Data Reviewed
Vital Signs / I&O:
Vital Signs
Temp Pulse Resp BP Pulse Ox
98.2 F 82 20 112/45 93
01/18/25 08:00 01/18/25 07:58 01/18/25 07:58 01/18/25 04:00 01/18/25 08:03
Intake and Output
01/17/25 01/18/25 01/19/25
06:59 06:59 06:59
Output Total 2600 / 2600 2950 / 2950
Balance -2600 / -2600 -2950 / -2950
SaO2: 93
Nasal Cannula flow liters per minute: 9
Physical Exam
General: Respiratory Distress (None at rest), Comfortable and Other (NAD)
HEENT: Normocephalic, Anicteric and Moist Mucous Membranes
Cardiovascular: Irregular Rhythm
Respiratory: Clear ( diminished breath sounds, prolonged expiratory time), Wheeze, Crackles (n), Non-Labored Respirations, Accessory Resp Muscle Use (n), Stridor (n) and Other (Prolonged expiratory phase-poor air movement)
GI: Soft, Non Distended and Non Tender
Neurology: Awake, Alert and No Motor Deficits
Skin: Warm, Dry, Good Color, Cyanosis (n) and Jaundice
Labs/Micro/Reports
Lab Data
01/18/25 06:13
01/18/25 06:13
[2025-01-18] MEDS: LOKELMA 10 GRAM PO (10:09)
[2025-01-18] MEDS: LASIX 40 MG IV (12:12)
--- NOTE | 2025-01-18 14:10 | PTCARENOTE ---
Pt's assessment as documented. Aox3. NSR on tele monitor. Sating low to mid 90's on 9L. OOB to chair. Medications administered as ordered, see MAR. Ringing appropriately, call hernández within reach.
--- NOTE | 2025-01-18 14:37 | CM ---
F/U: Hospitalist informed MANISHA Flor that patient is staying the weekend to continue IV Lasix; monitor BP, and continue to try to wean down because still on 7-9 liters, based line is 4 liters. May need another concentrator via [facility] [employer]
company. PLAN: Home w [facility] for CHF
[2025-01-18] MEDS: ROCEPHIN 1000 MG IV (20:45)
[2025-01-18] MEDS: CRESTOR 20 MG PO (20:45)
[2025-01-18] MEDS: STERILE WATER FOR INJECTION 10 ML IV (20:45)
[2025-01-19] VITALS (12 sets, daily range): BP systolic 103–132; BP diastolic 64–101; PULSE 2–79
[2025-01-19 05:16] LABS: Hematocrit 42.8 % (39.0-52.0); Hemoglobin 13.3 g/dL (13.0-18.0); Mean Corp Hgb Conc. 31.1 g/dL (33.0-37.0); Mean Corpuscular Volume 95.1 fL (80.0-94.0); Platelet Count 307 10^3/uL (130-400); Red Cell Dist. Width 14.0 % (11.5-14.5)
--- NOTE | 2025-01-19 05:22 | PTCARENOTE ---
Assumed care of Pt at shift change; Pt resting comfortably in chair with 12L O2 via MF NC; Pt agreeable to wear BiPAP HS; Pt awoke at 0200 and was unable to tolerate BiPAP. Mask removed and Pt placed back on 12L MF; VSS; NSR on monitor; Dyspneic
with exertion; Will continue to monitor and assess.
[2025-01-19 05:45] LABS: Blood Urea Nitrogen 32 mg/dl (9-20); Calcium 8.5 mg/dl (8.4-10.2); Chloride 91 mmol/L (98-107); Estimated Creatinine Clearance 87 ml/min; Glucose 171 mg/dl (70-99); Potassium 5.0 mmol/L (3.5-5.1); Sodium 134 mmol/L (135-145); eGFR > 60.00
[2025-01-19 05:54] LABS: Carbon Dioxide 39 mmol/L (22-30)
[2025-01-19] MEDS: DUONEB 3 ML INH ×4 (08:05→19:51)
[2025-01-19] MEDS: PULMICORT 0.5 MG INH ×2 (08:05→19:51)
--- NOTE | 2025-01-19 08:18 | W.PN.HOSP.TC ---
Today's Communication/Plan
-
Completed 10 days of ceftriaxone.
Continue with steroids and Lasix. Follow-up electrolytes including potassium.
Assessment / Plan
Assessment / Plan
Assessment:
Acute on chronic Hypoxic respiratory failure secondary to Right upper lobe pneumonia
- baseline O2 is 4L, currently 7-9L NC
- wean as able to baseline
- home O2 testing closer to [place]
Severe Emphysema on chronic 4 L nasal cannula (Former smoker 40-year 2 to 3 pack a day quit 7 years ago)
End-stage COPD with flare now-evaluated by lung transplant center at [facility] and he backed out and hasnt followed with them in a while
Compensated chronic respiratory acidosis.
House bound on his 3 floor condo as he cant make it on steps even
- continue IV steroids-wean per pulmonary
- continue Pulmicort nebs
- Continue Duonebs
- may need BiPAP or Trilogoy setup at home; reviewed with Pulm
- would need local f/u with Pulm as well as transplant evaluation ([facility] or [place])
CAP
- Finished 10 days of Rocephin
- finished acute Azithro course; now continue 3x/weekly M/W/F dosing
New Parox A. Fib
- now back in NSR
- continue oral Cardizem/Eliquis
- Echo: with normal EF, dilated RV with normal RV function
- CBC cards following
Acute HFpEF
-Improving weight
-Continue with IV Lasix; requires intensive monitoring of I/OS, weights, lytes
- consider Diamox if CO2 rises further
- CBC cards following
nonocclusive CAD by report
- continue high potency Crestor
Acute on chronic abdominal pain
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 Appreciate GI input who feels this is an incidental finding and not related to his symptoms.
- GI signed off.
- continue with PPI
Mild hyperglycemia
- HgbA1c 5.4% this admission
- likely due to steroids
Essential HTN
- Home regimen consist of Cardizem 240 mg daily, HCTZ 12.5 mg daily, KCl 10 mEq
- Blood pressure under goal. cardizem restarted back for atrial fibrillation.
HLD
- continue high potency Crestor
Hyperkalemia
- unclear etiology
- Steroids would cause hypokalemia not hyperkalemia like hyperkalemia in adrenal insufficency
- Urine K gradient once off of lasix
- cw low K diet
- monitor BMP; K today 5.0
DVT ppx: Eliquis
Code: Full
Anticipated Discharge: > 48 hours
Subjective/Interval History
-
Date of Service: January 19, 2025
Is improving slowly. He sees improvement in the lower extremity edema but still sees quite a bit more to go.
Denies shortness of breath at rest this morning. He has not done much to see how his exertional shortness of breath would be.
Denies any chest pain or palpitations.
Not much of cough but no phlegm. Tolerating diet.
Objective Data
-
Labs:
Laboratory Results
01/19/25
05:10
WBC 10.1
Hgb 13.3
Hct 42.8
Plt Count 307
Sodium 134 L
Potassium 5.0
Chloride 91 L
Carbon Dioxide 39 H
BUN 32 H
Creatinine 0.9
Glucose 171 H
Calcium 8.5
Vital Signs:
Vital Signs
Temp Pulse Resp BP Pulse Ox
97.4 F 76 19 104/75 92
01/19/25 04:30 01/19/25 08:10 01/19/25 08:10 01/19/25 06:00 01/19/25 08:10
I&O
01/18/25 01/19/25 01/20/25
06:59 06:59 06:59
Intake Total 240 / 240
Output Total 2950 / 2950 1800 / 1800
Balance -2950 / -2950 -1560 / -1560
Physical Exam
-
General: No Apparent Distress
Respiratory: Non Labored Respirations and Decreased Breath Sounds (In general); Negative Wheezes, Crackles or Accessory Resp Muscle Use
Cardiac: Regular Rhythm and S1/S2; Negative Tachycardic
GI: Soft
Musculoskeletal: Edema, Right Lower Extrem and Edema, Left Lower Extrem
Neuro: AO x 3
Psych: Calm
Data Reviewed
-
Labs: Labs Reviewed by me
[2025-01-19] MEDS: ELIQUIS 5 MG PO ×2 (09:53→19:49)
[2025-01-19] MEDS: CARDIZEM CD 240 MG PO (09:53)
[2025-01-19] MEDS: PROTONIX 40 MG PO (09:53)
[2025-01-19] MEDS: DECADRON IV (09:54)
[2025-01-19] MEDS: DELTASONE 30 MG PO (09:56)
[2025-01-19] MEDS: LASIX 20 MG IV (09:57)
--- NOTE | 2025-01-19 11:23 | W.PN.CD ---
Today's Communication / Plan
-
continue IV lasix
Impression / Plan
-
Impression/Plan: 69M with severe COPD requiring 4 L nasal cannula of oxygen supplementation, nonobstructive CAD, hypertension, and hypercholesterolemia who presented 01/08/2025 with a chief complaint of shortness of breath, subsequently developing
new atrial fibrillation with rapid ventricular response.
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
#Hypoxemic respiratory failure
-Acute on chronic, requiring 4LNC supplemental O2 at home.
-Etiology is multifactorial (known COPD, new RUL community aquired PNA).
-Management through primary service/pulmonary - continue ceftriaxone, nebulizers and steroids. Azithromycin discontinued.
-He may benefit from RHC at some point to evaluate pulmonary pressures, particularly in light of possible/previous transplant workup and dilated RV.
# Acute heart failure, suspected cor pulmonale
-continue lasix 20mg IV daily with close monitoring of labs tele
#Atrial fibrillation
-Paroxysmal, new diagnosis - onset 01/15/2025 at 03:26.
-Currently in NSR.
-Rate/rhythm control with diltiazem 240 mg PO daily. No beta sierra given significant lung disease.
-[id number]: score at least 2 (HTN, age 65-74)
-Oral Anticoagulation: Apixaban 5 mg twice daily, case management to [place].
-Echocardiogram shows dilated RV with normal RV function. Possible early changes of cor pulmonale?
#COPD
-Acute exacerbation, severe.
-He is considering following back up with [facility] regarding transplant.
-Management by primary service + pulmonary.
#Non-occlusive CAD
-Chronic, by report.
-No role for ASA given need for apixaban.
-Continue rosuvastatin to 20 mg daily.
#Hypertension
-Chronic, stable.
-Stable on diltiazem 240 mg daily.
#Hypercholesterolemia
-Chronic, stable.
-Continue rosuvastatin to 20 mg.
-Goal LDL < 55.
Subjective/Interval History:
Weight down 5.2 kg.
Potassium up to 5.2.
Sodium 133.
BiPAP trialed overnight.
DATA:
CT Chest, 01/08/2025:
IMPRESSION:
Examination is negative for urinary embolism.
Volume loss of the left hemithorax with bands of scarring/chronic atelectasis within the left lung.
Severe changes of emphysema.
Multiple small nodular opacities within the anterior aspect of the right upper lobe, which is likely pneumonia.
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
Fatty infiltration the liver.
TTE, 01/15/2025:
SUMMARY
1. Normal left ventricular size, and systolic function. Estimated LVEF 55-60%.
2. Aortic valve sclerosis without stenosis.
3. Mildly enlarged RV size with normal systolic function.
4. Mild tricuspid regurgitation. Estimated pulmonary artery pressure of 37 mmHg assuming a right atrial pressure of 8 mmHg. Mildly elevated PASP.
5. No prior study for comparison.
Physical Exam
Vital Signs/Labs
Vital Signs
Temp Pulse Resp BP Pulse Ox
97 F 76 19 104/75 92
01/19/25 08:16 01/19/25 08:10 01/19/25 08:10 01/19/25 06:00 01/19/25 08:10
01/18/25 01/19/25 01/20/25
06:59 06:59 06:59
Actual Weight 97.5 kg
01/19/25 05:10
01/19/25 05:10
APTT Cancelled 01/16/25 09:45
Magnesium 2.4 mg/dl (1.6-2.3) H 01/15/25 04:31
01/09/25 01/15/25
07:29 04:31
Psc-Z-Azsdzgwcuey Pept 882 311
Physical Exam
Constitutional: No acute distress
Cardiovascular: Rhythm & rate is regular
Respiratory: Labored respirations
Neuro/Psych: Alert
Data Reviewed
-
Date of Service: January 19, 2025
EKG: Other (Tele: SR 90s)
Labs: Labs Reviewed by me
--- NOTE | 2025-01-19 11:55 | W.PN.PUL3 ---
Today's Communication / Plan
-
- DC IV steroids, initiate prednisone 30 mg daily
- Start Lasix 40 mg IV daily
- Wean O2 as tolerated, discharge planning
Assessment
-
69-year-old male past medical history of severe COPD on 4 L chronic oxygen, hypertension, HLD, presenting with shortness of breath and hypoxic to 64% today. �He was feeling lightheadedness. �Patient also having severe left to right abdominal pain
for several months. �Patient unable to get at the house to get evaluated. �Has been having intermittent constipation.
Being evaluated for [facility] lung transplant. �Colonoscopy was attempted 3 times but patient was never properly evacuated so lung transplant could not be pursued. He was last seen about 1-2 years ago. In ER, vital signs showed tachycardia up to 113.
�Hypoxic requiring 6 L oxygen. Labs show leukocytosis 11.8. Chest x-ray shows nodular density within the right lung peribronchial thickening suggesting small airway pneumonitis/bronchitis. �CT PE shows multiple small nodular opacities within the
anterior aspect of the right upper lobe which is likely pneumonia. �Severe changes of emphysema. �We are consulted for evaluation.
Acute on chronic hypoxemia, baseline use of 4L
Severe end stage COPD/Emphysema, evaluated at [facility] for transplant-now with acute exacerbation
Former [id number], quit 7 years ago
Possible PNA
Sinus tachycardia
Acute on chronic SOB
Met alkalosis, with chronic hypercarbia noted-compensated
Pulmonary hypertension,? Developing cor pulmonale
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
Former smoker, 1PPD for 20 years then 2PPD for 20 more years, quit 5-10 years ago (total PY = 60)
CAD, minimal in 1 artery per patient during transplant w/u, no records
HTN
HLD
Plan
Respiratory decompensation- Patient with end-stage emphysema-patient states that he has not left his third floor condominium for a year because he cannot ambulate on the stairs and has not seen physicians because of this.
Chronic hypercapnia as well- ABG 01/09/25--.41
Last seen [facility] 1-2 years ago and did not proceed with transplant testing
Respiratory status remains quite tenuous but slowly improving
Wean oxygen-establish new baseline prior to discharge.
Decadron 4 mg IV every 8 hours-switch to prednisone 30 mg daily
Pulmicort nebulized twice daily
Duo nebs 4 times a day
Usually on Breztri
Mucinex if needed
Patient used BiPAP for about 4 hours last night. Agreeable to trial of BiPAP at home.
2-3+ bilateral pitting edema. Elevated right-sided pulmonary pressures. Initiate gentle diuresis with 20 of Lasix IV daily and monitor.
Cultures reviewed
Blood cultures negative
Influenza negative
Unable to produce sputum
Completed Rocephin, continue azithromycin, Tuesday, Tuesday, Tuesday.
Cardiac w/u at [facility] reportedly good
H/o HTN, he states he had minimal CAD in 1 artery
Cardiology evaluation-correspondence reviewed
Diltiazem drip-converted to oral
Heparin drip-converted to Eliquis
DVT prophylaxis-on Eliquis
Nutrition
Early mobilization/PT/OT
If he improves, he would need to see [facility] again as OP to qualify for transplant-multiple follow-up locally as well
Will need outpatient pulmonary evaluation in their office for PFTs and 6MWT
Patient expressed wishes to possibly follow up locally-we will provide information for this-Consider chronic low-dose steroids, azithromycin, Ohtuvyre nebulizers, Daliresp, Biologics, pulmonary rehabilitation, [place] valves, and transplantation
Dr. Osuna reviewed with patient, sister and on the phone at bedside-01/12/2025
Diagnostic Data
Chest X-Ray: 01/08/25- Volume loss of the left hemithorax with shift of the mediastinum toward the left. Bands of increased opacity within the left mid to lower lung, most likely representing scarring and/or chronic atelectasis. The right lung
appears hyperinflated, findings suggestive of emphysema. Subtle small nodular density suggested within the right lung with peribronchial thickening, suggesting the possibility of small airway pneumonitis and/or bronchitis. Mild blunting of the left
lateral costophrenic angle is most likely chronic pleural thickening, although a small left pleural effusion is also possible. Overall cardiac silhouette size appears within normal limits with no findings to suggest pulmonary edema. Mild
dextroconvex scoliosis centered in the midthoracic spine.
CT Scan: CHEST 01/08/25- Examination is negative for pulmonary embolism. Volume loss of the left hemithorax with bands of scarring/chronic atelectasis within the left lung. Severe changes of emphysema. Multiple small nodular opacities within the
anterior aspect of the right upper lobe, which is likely pneumonia. 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 Fatty infiltration the liver.
Reports and relevant images were personally reviewed.
Subjective Data
-
Date of Service:
Date of Service: January 19, 2025
Chief Complaint: Pulmonary Follow Up and Dyspnea Follow Up
Subjective:
Patient comfortably sitting in bed, in no acute distress
Review of Systems
Genitourinary: Other (All 14 systems reviewed and negative except as stated above in the history of present illness.)
Objective Data
Data Reviewed
Vital Signs / I&O / Oxygen:
Vital Signs
Temp Pulse Resp BP Pulse Ox
99 F 80 14 104/75 95
01/19/25 11:53 01/19/25 11:43 01/19/25 11:43 01/19/25 06:00 01/19/25 11:43
Intake and Output
01/18/25 01/19/25 01/20/25
06:59 06:59 06:59
Intake Total 240 / 240
Output Total 2950 / 2950 1800 / 1800
Balance -2950 / -2950 -1560 / -1560
SaO2 95
Nasal Cannula flow liters per 14
minute
Physical Exam
General: Respiratory Distress (None at rest), Comfortable and Other (NAD)
HEENT: Normocephalic, Anicteric and Moist Mucous Membranes
Cardiovascular: Irregular Rhythm and Peripheral Edema (2-3+ bilateral pitting edema)
Respiratory: Clear ( diminished breath sounds, prolonged expiratory time), Wheeze, Non-Labored Respirations, Accessory Resp Muscle Use (n), Stridor (n) and Other (Prolonged expiratory phase-poor air movement)
GI: Soft, Non Distended and Non Tender
Neurology: Awake and Alert
Skin: Warm, Dry, Good Color, Cyanosis (n) and Jaundice
Labs/Micro/Reports
Lab Data
01/19/25 05:10
01/19/25 05:10
[2025-01-19] MEDS: CRESTOR 20 MG PO (19:49)
[2025-01-20] VITALS (13 sets, daily range): BP systolic 92–133; BP diastolic 55–102; PULSE 2–82; BMI 30.7
--- NOTE | 2025-01-20 02:30 | PTCARENOTE ---
No complaints overnight; Continue to attempt to wean O2 as Pt tolerates; Pt placed on BiPAP mask at bedtime and removed mask by 0030 stating that he was unable to tolerate it anymore. Will continue to monitor and assess.
[2025-01-20 05:51] LABS: Hematocrit 38.4 % (39.0-52.0); Hemoglobin 11.7 g/dL (13.0-18.0); Mean Corp Hgb Conc. 30.5 g/dL (33.0-37.0); Mean Corpuscular Volume 94.3 fL (80.0-94.0); Platelet Count 242 10^3/uL (130-400); Red Cell Dist. Width 14.1 % (11.5-14.5)
[2025-01-20 05:57] LABS: Blood Urea Nitrogen 31 mg/dl (9-20); Calcium 8.1 mg/dl (8.4-10.2); Chloride 90 mmol/L (98-107); Estimated Creatinine Clearance 111 ml/min; Glucose 132 mg/dl (70-99); Potassium 5.0 mmol/L (3.5-5.1); Sodium 135 mmol/L (135-145); eGFR > 60.00
[2025-01-20 06:20] LABS: Carbon Dioxide 43 mmol/L (22-30)
[2025-01-20] MEDS: PULMICORT 0.5 MG INH ×2 (07:33→20:32)
[2025-01-20] MEDS: DUONEB 3 ML INH ×4 (07:33→20:32)
[2025-01-20] MEDS: CARDIZEM CD 240 MG PO (08:28)
[2025-01-20] MEDS: PROTONIX 40 MG PO (08:28)
[2025-01-20] MEDS: ELIQUIS 5 MG PO ×2 (08:29→20:34)
[2025-01-20] MEDS: DELTASONE 30 MG PO (08:29)
[2025-01-20] MEDS: LASIX 20 MG IV (08:30)
--- NOTE | 2025-01-20 09:25 | W.PN.HOSP.TC ---
Today's Communication/Plan
-
CW IV lasix .Follow Wt.
CW oral prednisone.
Wean O2 as able.
Assessment / Plan
Assessment / Plan
Assessment:
Acute on chronic Hypoxic respiratory failure secondary to Right upper lobe pneumonia
- baseline O2 is 4L, currently at 14l today
- wean as able to baseline
- home O2 testing closer to [place]
Severe Emphysema on chronic 4 L nasal cannula (Former smoker 40-year 2 to 3 pack a day quit 7 years ago)
End-stage COPD with flare now-evaluated by lung transplant center at [place] and he backed out and hasnt followed with them in a while
Compensated chronic respiratory acidosis.
House bound on his 3 floor condo as he cant make it on steps even
- continue steroids-switch to oral prednisone
- continue Pulmicort nebs
- Continue Duonebs
- may need BiPAP or Trilogoy setup at home; reviewed with Pulm
- would need local f/u with Pulm as well as transplant evaluation ([place] or [facility])
CAP
- Finished 10 days of Rocephin
- finished acute Azithro course; now continue 3x/weekly M/W/F dosing
New [place]ox A. Fib
- now back in NSR
- continue oral Cardizem/Eliquis
- Echo: with normal EF, dilated RV with normal RV function
- CBC cards following
Acute HFpEF
- Fluctuating weight. Clinically still with significant bilateral lower extremity edema
-Continue with IV Lasix; requires intensive monitoring of I/OS, weights, lytes
- consider Diamox if CO2 rises further
- CBC cards following; thoughts about RHC noted
nonocclusive CAD by report
- continue high potency Crestor
Acute on chronic abdominal pain
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 Appreciate GI input who feels this is an incidental finding and not related to his symptoms.
- GI signed off.
- continue with PPI
Mild hyperglycemia
- HgbA1c 5.4% this admission
- likely due to steroids
Essential HTN
- Home regimen consist of Cardizem 240 mg daily, HCTZ 12.5 mg daily, KCl 10 mEq
- Blood pressure under goal. cardizem restarted back for atrial fibrillation.
HLD
- continue high potency Crestor
Hyperkalemia
- unclear etiology
- Steroids would cause hypokalemia not hyperkalemia like hyperkalemia in adrenal insufficency
- Urine K gradient once off of lasix
- cw low K diet
- monitor BMP; K today 5.0
Hyponatremia -suspect excess ADH sec to pulmonary condition
Normal today.Follow for now.
DVT ppx: Eliquis
Code: Full
Anticipated Discharge: > 48 hours
Subjective/Interval History
-
Date of Service: January 20, 2025
Breathing no worse. Requiring mid flow oxygen via nasal cannula still. Still with significant lower extremity edema. Denies any chest pain or dizziness. No nausea vomiting. Tolerating diet. No fever chills.
Objective Data
-
Labs:
Laboratory Results
01/20/25
05:12
WBC 9.4
Hgb 11.7 L
Hct 38.4 L
Plt Count 242 D
Sodium 135
Potassium 5.0
Chloride 90 L
Carbon Dioxide 43 H
BUN 31 H
Creatinine 0.8
Glucose 132 H
Calcium 8.1 L
Vital Signs:
Vital Signs
Temp Pulse Resp BP Pulse Ox
98.2 F 92 18 125/71 95
01/20/25 08:05 01/20/25 07:35 01/20/25 07:35 01/20/25 06:00 01/20/25 06:00
I&O
01/19/25 01/20/25 01/21/25
06:59 06:59 06:59
Intake Total 240 / 240
Output Total 1800 / 1800 1325 / 1325
Balance -1560 / -1560 -1325 / -1325
Physical Exam
-
General: No Apparent Distress
Respiratory: Non Labored Respirations and Decreased Breath Sounds (In general); Negative Accessory Resp Muscle Use
Cardiac: Regular Rhythm and S1/S2; Negative Tachycardic
GI: Soft
Musculoskeletal: Edema, Right Lower Extrem and Edema, Left Lower Extrem (2+ bilateral)
Neuro: AO x 3
Psych: Calm
Data Reviewed
-
Labs: Labs Reviewed by me
--- NOTE | 2025-01-20 09:56 | W.PN.CD ---
Today's Communication / Plan
-
increase lasix to 40mg IV bid
Impression / Plan
-
Impression/Plan: 69M with severe COPD requiring 4 L nasal cannula of oxygen supplementation, nonobstructive CAD, hypertension, and hypercholesterolemia who presented 01/08/2025 with a chief complaint of shortness of breath, subsequently developing
new atrial fibrillation with rapid ventricular response.
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
#Hypoxemic respiratory failure
-Acute on chronic, requiring 4LNC supplemental O2 at home.
-Etiology is multifactorial (known COPD, new RUL community aquired PNA).
-Management through primary service/pulmonary - continue ceftriaxone, nebulizers and steroids. Azithromycin discontinued.
-He may benefit from RHC at some point to evaluate pulmonary pressures, particularly in light of possible/previous transplant workup and dilated RV.
# Acute heart failure, suspected cor pulmonale
-increase lasix to 40mg IV bid with close monitoring of labs tele
#Atrial fibrillation
-Paroxysmal, new diagnosis - onset 01/15/2025 at 03:26.
-Currently in NSR.
-Rate/rhythm control with diltiazem 240 mg PO daily. No beta sierra given significant lung disease.
-[id number]: score at least 2 (HTN, age 65-74)
-Oral Anticoagulation: Apixaban 5 mg twice daily, case management to [place].
-Echocardiogram shows dilated RV with normal RV function. Possible early changes of cor pulmonale?
#COPD
-Acute exacerbation, severe.
-He is considering following back up with [facility] regarding transplant.
-Management by primary service + pulmonary.
#Non-occlusive CAD
-Chronic, by report.
-No role for ASA given need for apixaban.
-Continue rosuvastatin to 20 mg daily.
#Hypertension
-Chronic, stable.
-Stable on diltiazem 240 mg daily.
#Hypercholesterolemia
-Chronic, stable.
-Continue rosuvastatin to 20 mg.
-Goal LDL < 55.
DATA:
CT Chest, 01/08/2025:
IMPRESSION:
Examination is negative for urinary embolism.
Volume loss of the left hemithorax with bands of scarring/chronic atelectasis within the left lung.
Severe changes of emphysema.
Multiple small nodular opacities within the anterior aspect of the right upper lobe, which is likely pneumonia.
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
Fatty infiltration the liver.
TTE, 01/15/2025:
SUMMARY
1. Normal left ventricular size, and systolic function. Estimated LVEF 55-60%.
2. Aortic valve sclerosis without stenosis.
3. Mildly enlarged RV size with normal systolic function.
4. Mild tricuspid regurgitation. Estimated pulmonary artery pressure of 37 mmHg assuming a right atrial pressure of 8 mmHg. Mildly elevated PASP.
5. No prior study for comparison.
Physical Exam
Vital Signs/Labs
Vital Signs
Temp Pulse Resp BP Pulse Ox
98.2 F 92 18 125/71 95
01/20/25 08:05 01/20/25 07:35 01/20/25 07:35 01/20/25 06:00 01/20/25 06:00
01/19/25 01/20/25 01/21/25
06:59 06:59 06:59
Actual Weight 102.7 kg
01/20/25 05:12
01/20/25 05:12
APTT Cancelled 01/16/25 09:45
Magnesium 2.4 mg/dl (1.6-2.3) H 01/15/25 04:31
01/09/25 01/15/25
07:29 04:31
Mno-M-[id number] Pept [id number]
Physical Exam
Constitutional: No acute distress
EENT: Moist mucous membranes
Cardiovascular: Rhythm & rate is regular, Systolic murmur absent, Pedal edema present and JVD present
Respiratory: Labored respirations and Other (poor air movement)
Neuro/Psych: AO x 3
Data Reviewed
-
Date of Service: January 20, 2025
EKG: Other (tele: SR, PAC's)
Labs: Labs Reviewed by me
--- NOTE | 2025-01-20 10:46 | W.PN.PUL3 ---
Today's Communication / Plan
-
- Continue to wean oxygen as tolerated
- Increase IV diuresis to twice daily
- Discharge planning
Assessment
-
69-year-old male past medical history of severe COPD on 4 L chronic oxygen, hypertension, HLD, presenting with shortness of breath and hypoxic to 64% today. �He was feeling lightheadedness. �Patient also having severe left to right abdominal pain
for several months. �Patient unable to get at the house to get evaluated. �Has been having intermittent constipation.
Being evaluated for [facility] lung transplant. �Colonoscopy was attempted 3 times but patient was never properly evacuated so lung transplant could not be pursued. He was last seen about 1-2 years ago. In ER, vital signs showed tachycardia up to 113.
�Hypoxic requiring 6 L oxygen. Labs show leukocytosis 11.8. Chest x-ray shows nodular density within the right lung peribronchial thickening suggesting small airway pneumonitis/bronchitis. �CT PE shows multiple small nodular opacities within the
anterior aspect of the right upper lobe which is likely pneumonia. �Severe changes of emphysema. �We are consulted for evaluation.
Acute on chronic hypoxemia, baseline use of 4L
Severe end stage COPD/Emphysema, evaluated at [facility] for transplant-now with acute exacerbation
Former [id number]-year, quit 7 years ago
Possible PNA
Sinus tachycardia
Acute on chronic SOB
Met alkalosis, with chronic hypercarbia noted-compensated
Pulmonary hypertension,? Developing cor pulmonale
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
Former smoker, 1PPD for 20 years then 2PPD for 20 more years, quit 5-10 years ago (total PY = 60)
CAD, minimal in 1 artery per patient during transplant w/u, no records
HTN
HLD
Plan
Respiratory decompensation- Patient with end-stage emphysema-patient states that he has not left his third floor condominium for a year because he cannot ambulate on the stairs and has not seen physicians because of this.
Chronic hypercapnia as well- ABG 01/09/25--7.41
Last seen [facility] 1-2 years ago and did not proceed with transplant testing
Respiratory status remains quite tenuous but slowly improving
Wean oxygen-establish new baseline prior to discharge.
Decadron 4 mg IV every 8 hours-switched to prednisone 30 mg daily
Pulmicort nebulized twice daily
Duo nebs 4 times a day
Usually on Breztri
Mucinex if needed
Patient used BiPAP for about 4 hours last night. Agreeable to trial of BiPAP at home.
2-3+ bilateral pitting edema. Elevated right-sided pulmonary pressures. Still quite hypervolemic, increase Lasix to twice daily dosing.
Cultures reviewed
Blood cultures negative
Influenza negative
Unable to produce sputum
Completed Rocephin, continue azithromycin, Tuesday, Tuesday, Tuesday.
Cardiac w/u at [facility] reportedly good
H/o HTN, he states he had minimal CAD in 1 artery
Cardiology evaluation-correspondence reviewed
Diltiazem drip-converted to oral
Heparin drip-converted to Eliquis
DVT prophylaxis-on Eliquis
Nutrition
Early mobilization/PT/OT
If he improves, he would need to see [facility] again as OP to qualify for transplant-multiple follow-up locally as well
Will need outpatient pulmonary evaluation in their office for PFTs and 6MWT
Patient expressed wishes to possibly follow up locally-we will provide information for this-Consider chronic low-dose steroids, azithromycin, Ohtuvyre nebulizers, Daliresp, Biologics, pulmonary rehabilitation, [place] valves, and transplantation
Dr. Osuna reviewed with patient, sister and on the phone at bedside-01/12/2025
Diagnostic Data
Chest X-Ray: 01/08/25- Volume loss of the left hemithorax with shift of the mediastinum toward the left. Bands of increased opacity within the left mid to lower lung, most likely representing scarring and/or chronic atelectasis. The right lung
appears hyperinflated, findings suggestive of emphysema. Subtle small nodular density suggested within the right lung with peribronchial thickening, suggesting the possibility of small airway pneumonitis and/or bronchitis. Mild blunting of the left
lateral costophrenic angle is most likely chronic pleural thickening, although a small left pleural effusion is also possible. Overall cardiac silhouette size appears within normal limits with no findings to suggest pulmonary edema. Mild
dextroconvex scoliosis centered in the midthoracic spine.
CT Scan: CHEST 01/08/25- Examination is negative for pulmonary embolism. Volume loss of the left hemithorax with bands of scarring/chronic atelectasis within the left lung. Severe changes of emphysema. Multiple small nodular opacities within the
anterior aspect of the right upper lobe, which is likely pneumonia. 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 Fatty infiltration the liver.
Reports and relevant images were personally reviewed.
Subjective Data
-
Date of Service:
Date of Service: January 20, 2025
Chief Complaint: Pulmonary Follow Up and Dyspnea Follow Up
Subjective:
Comfortably sitting in bed, overall reports feeling better, still has significant bilateral pedal edema
Review of Systems
Genitourinary: Other (All 14 systems reviewed and negative except as stated above in the history of present illness.)
Objective Data
Data Reviewed
Vital Signs / I&O / Oxygen:
Vital Signs
Temp Pulse Resp BP Pulse Ox
98.2 F 88 16 125/71 93
01/20/25 08:05 01/20/25 10:45 01/20/25 10:45 01/20/25 06:00 01/20/25 10:45
Intake and Output
01/19/25 01/20/25 01/21/25
06:59 06:59 06:59
Intake Total 240 / 240
Output Total 1800 / 1800 1325 / 1325
Balance -1560 / -1560 -1325 / -1325
SaO2 93
Nasal Cannula flow liters per 14
minute
Physical Exam
General: Respiratory Distress (None at rest), Comfortable and Other (NAD)
HEENT: Normocephalic, Anicteric and Moist Mucous Membranes
Cardiovascular: Irregular Rhythm and Peripheral Edema (2-3+ bilateral pitting edema)
Respiratory: Clear ( diminished breath sounds, prolonged expiratory time), Non-Labored Respirations, Accessory Resp Muscle Use (n), Stridor (n) and Other (Prolonged expiratory phase-poor air movement. No wheezing this morning)
GI: Soft, Non Distended and Non Tender
Neurology: Awake and Alert
Skin: Warm, Dry, Good Color, Cyanosis (n) and Jaundice
Labs/Micro/Reports
Lab Data
01/20/25 05:12
01/20/25 05:12
--- NOTE | 2025-01-20 17:07 | PTCARENOTE ---
spoke at length w/ pt on phone. Explained that MD is aware that she is requesting updates. RN answered all questions regarding plan of care. Pt AAOx3 and understanding. remains on monitor, VSS, full assessment is as charted in worklist.
[2025-01-20] MEDS: LASIX 40 MG IV (18:27)
[2025-01-20] MEDS: CRESTOR 20 MG PO (20:34)
[2025-01-21] VITALS (41 sets, daily range): BP systolic 92–150; BP diastolic 57–112; BMI 30.3
--- NOTE | 2025-01-21 06:34 | PTCARENOTE ---
No complaints overnight; O2 weaned to 7L O2 overnight with SpO2 ~ 94-98%; Wore BiPAP from [id number]; Will continue to monitor and assess.
[2025-01-21 06:55] LABS: Hematocrit 41.1 % (39.0-52.0); Hemoglobin 12.6 g/dL (13.0-18.0); Mean Corp Hgb Conc. 30.7 g/dL (33.0-37.0); Mean Corpuscular Volume 94.5 fL (80.0-94.0); Platelet Count 295 10^3/uL (130-400); Red Cell Dist. Width 14.4 % (11.5-14.5)
[2025-01-21 07:12] LABS: Blood Urea Nitrogen 30 mg/dl (9-20); Calcium 8.4 mg/dl (8.4-10.2); Chloride 88 mmol/L (98-107); Estimated Creatinine Clearance 98 ml/min; Glucose 90 mg/dl (70-99); Potassium 4.7 mmol/L (3.5-5.1); Sodium 134 mmol/L (135-145); eGFR > 60.00
[2025-01-21 07:22] LABS: Carbon Dioxide 46 mmol/L (22-30)
[2025-01-21] MEDS: DUONEB 3 ML INH ×4 (07:22→20:41)
[2025-01-21] MEDS: PULMICORT 0.5 MG INH ×2 (07:22→20:41)
--- NOTE | 2025-01-21 07:33 | W.PN.CD ---
Today's Communication / Plan
-
Continue diuresis.
RHC today to clarify filling pressures.
Impression / Plan
-
Impression/Plan: 69M with severe COPD requiring 4 L nasal cannula of oxygen supplementation, nonobstructive CAD, hypertension, and hypercholesterolemia who presented 01/08/2025 with a chief complaint of shortness of breath, subsequently developing
new atrial fibrillation with rapid ventricular response.
Outpatient director public policy: [facility].
#Hypoxemic respiratory failure
-Acute on chronic, requiring 4LNC supplemental O2 at home.
-Etiology is multifactorial (known COPD, new RUL community aquired PNA).
-Management through primary service/pulmonary.
-He may benefit from RHC evaluate pulmonary pressures, particularly in light of possible/previous transplant workup and dilated RV.
#Heart failure, suspected cor pulmonale
-Acute.
-Primarily right sided (perhaps some component of left sided - unclear if due to pulmonary venous hypertension vs. progression of primary pulmonary disease).
-Continue furosemide 40 mg IV BID.
-RHC today to clarify filling pressures and degree of left vs. right failure.
#Atrial fibrillation
-Paroxysmal, new diagnosis - onset 01/15/2025 at 03:26.
-Currently in NSR.
-Rate/rhythm control with diltiazem 240 mg PO daily. No beta sierra given significant lung disease.
-[id number]: score at least 2 (HTN, age 65-74)
-Oral Anticoagulation: Apixaban 5 mg twice daily, case management to [place].
-Echocardiogram shows dilated RV with normal RV function. Possible early changes of cor pulmonale?
#COPD
-Acute exacerbation, severe.
-He is considering following back up with [facility] regarding transplant.
-Management by primary service + pulmonary.
#Non-occlusive CAD
-Chronic, by report.
-No role for ASA given need for apixaban.
-Continue rosuvastatin to 20 mg daily.
#Hypertension
-Chronic, stable.
-Stable on diltiazem 240 mg daily.
#Hypercholesterolemia
-Chronic, stable.
-Continue rosuvastatin to 20 mg.
-Goal LDL < 55.
Subjective/Interval History:
Weight is inaccurate (101.2 --> 102.7 --> 97.5 --> 102.7 --> 101.3).
SaO2 97% on 8L Mid-Flow.
DATA:
CT Chest, 01/08/2025:
IMPRESSION:
Examination is negative for urinary embolism.
Volume loss of the left hemithorax with bands of scarring/chronic atelectasis within the left lung.
Severe changes of emphysema.
Multiple small nodular opacities within the anterior aspect of the right upper lobe, which is likely pneumonia.
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
Fatty infiltration the liver.
TTE, 01/15/2025:
SUMMARY
1. Normal left ventricular size, and systolic function. Estimated LVEF 55-60%.
2. Aortic valve sclerosis without stenosis.
3. Mildly enlarged RV size with normal systolic function.
4. Mild tricuspid regurgitation. Estimated pulmonary artery pressure of 37 mmHg assuming a right atrial pressure of 8 mmHg. Mildly elevated PASP.
5. No prior study for comparison.
Physical Exam
Vital Signs/Labs
Vital Signs
Temp Pulse Resp BP Pulse Ox
36.6 C 78 18 124/76 97
01/21/25 04:10 01/21/25 07:28 01/21/25 07:28 01/21/25 06:00 01/21/25 07:28
01/19/25 01/20/25 01/21/25
11:59 11:59 11:59
Actual Weight 102.7 kg 101.3 kg
01/21/25 06:30
01/21/25 06:30
APTT Cancelled 01/16/25 09:45
Magnesium 2.4 mg/dl (1.6-2.3) H 01/15/25 04:31
01/09/25 01/15/25
07:29 04:31
Dol-F-Imrmfmjejff Pept [phone]
Physical Exam
Constitutional: No acute distress and Comfortable
EENT: Anicteric and Moist mucous membranes
Cardiovascular: Rhythm & rate is regular, Pedal edema present (2+, improved from prior.), S1S2 is normal and Murmur/rub/gallop absent
Respiratory: Respiratory effort normal and Other (Decreased throughout.)
GI: Soft, Distention absent, Flat, Non tender and Normal bowel sounds
Neuro/Psych: AO x 3
Data Reviewed
-
Date of Service: January 21, 2025
Medical Decision Making: Reviewed Test Results, Independent Historian Assessment and Test Interpretation
EKG: Tracing Personally Visualized and interpreted and Report Reviewed by me
Echo: Tracing Personally Visualized and interpreted and Report Reviewed by me
X-Ray/CT/US/MRI/NUC/PET: Image Personally Visualized and interpreted and Report Reviewed by me
Labs: Labs Reviewed by me
Old Records: Reviewed
[2025-01-21] MEDS: ZITHROMAX 500 MG PO (07:59)
[2025-01-21] MEDS: ELIQUIS 5 MG PO ×2 (07:59→19:51)
[2025-01-21] MEDS: PROTONIX 40 MG PO (07:59)
[2025-01-21] MEDS: CARDIZEM CD 240 MG PO (08:00)
[2025-01-21] MEDS: DELTASONE 30 MG PO (08:00)
[2025-01-21] MEDS: LASIX 40 MG IV (08:00)
--- NOTE | 2025-01-21 09:15 | W.PN.PUL3 ---
Addendum entered and electronically signed by Sondra Owusu DO 01/22/25 11:22:
Incorrect addendum, please disregard below
Addendum entered and electronically signed by Sondra Owusu, 01/21/25 14:49:
Patient is a 69-year-old F with WALKER/OHS, asthma. They have had multiple ER and hospital readmissions with a chief complaint of shortness of breath and respiratory failure. The patient has a PaCO2 of 67 mmHg. Due to the patient's comorbidities as
noted above and hypoventilation, the patient is at risk for worsening chronic respiratory failure. I have considered bilevel, bilevel ST and bilevel VAPS therapy and they have all been ruled out due to the patient's worsening clinical condition.
The patient now requires a unique mode of ventilation not offered on less costly options. The patient requires a device that will not fail in the event of a power failure and is also portable for mobility within the home when needed. Due to the
patient's worsening condition, I am prescribing NIV therapy to decrease the chance of continued unexplained expensive medical encounters including physician office visits, emergency/urgent care treatment and hospital readmissions.
Original Note:
Today's Communication / Plan
-
Increasing and decreasing O2 requirements -- between 6-8L, at times up to 10L
Remains on IV lasix BID per cards
Weaning prednisone taper
Can consider d/c planning if 10L concentrator can be obtained for home, reviewed with CM
Slow progress on this admission for improvement
Assessment
-
69-year-old male past medical history of severe COPD on 4 L chronic oxygen, hypertension, HLD, presenting with shortness of breath and hypoxic to 64% today. �He was feeling lightheadedness. �Patient also having severe left to right abdominal pain
for several months. �Patient unable to get at the house to get evaluated. �Has been having intermittent constipation.
Being evaluated for [facility] lung transplant. �Colonoscopy was attempted 3 times but patient was never properly evacuated so lung transplant could not be pursued. He was last seen about 1-2 years ago. In ER, vital signs showed tachycardia up to 113.
�Hypoxic requiring 6 L oxygen. Labs show leukocytosis 11.8. Chest x-ray shows nodular density within the right lung peribronchial thickening suggesting small airway pneumonitis/bronchitis. �CT PE shows multiple small nodular opacities within the
anterior aspect of the right upper lobe which is likely pneumonia. �Severe changes of emphysema. �We are consulted for evaluation.
Acute on chronic hypoxemia, baseline use of 4L
Severe end stage COPD/Emphysema, evaluated at [facility] for transplant-now with acute exacerbation
Former [id number], quit 7 years ago
Possible PNA
Sinus tachycardia
Acute on chronic SOB
Met alkalosis, with chronic hypercarbia noted-compensated
Pulmonary hypertension,? Developing cor pulmonale
Conditions present [employer]:
Former smoker, 1PPD for 20 years then 2PPD for 20 more years, quit 5-10 years ago (total PY = 60)
CAD, minimal in 1 artery per patient during transplant w/u, no records
HTN
HLD
Plan
Remains 97% on 8L/baseline use of 4L--O2 requirements seem to be the most limiting factor for discharge
Respiratory decompensation- Patient with end-stage emphysema-patient states that he has not left his third floor condominium for a year because he cannot ambulate on the stairs and has not seen physicians because of this.
Chronic hypercapnia as well- ABG 01/09/25--67/198/7.41
Last seen [facility] 1-2 years ago and did not proceed with transplant testing
Respiratory status remains quite tenuous but slowly improving
Wean oxygen-establish new baseline prior to discharge.
Decadron 4 mg IV every 8 hours-switched to prednisone 30 mg daily
Pulmicort nebulized twice daily
Duo nebs 4 times a day
Usually on Breztri
Mucinex if needed
Patient used BiPAP for about 4 hours last night. Agreeable to trial of BiPAP at home.
2-3+ bilateral pitting edema. Elevated right-sided pulmonary pressures. Still quite hypervolemic, increase Lasix to twice daily dosing.
Cultures reviewed
Blood cultures negative
Influenza negative
Unable to produce sputum
Completed Rocephin, continue azithromycin, Tuesday, Tuesday, Tuesday.
PCT 0.33 with mild elevation, can complete course of abx
proBNP to r/o CHF -- negative
Cardiac w/u at [facility] reportedly good
H/o HTN, he states he had minimal CAD in 1 artery
Cardiology evaluation-correspondence reviewed
Remains on IV lasix BID
Diltiazem drip-converted to oral
Heparin drip-converted to Eliquis
Smoking history noted--60 PY, quit 7 years ago
Continued smoking cessation encouraged
DVT prophylaxis-on Eliquis
Nutrition
Early mobilization/PT/OT
If he improves, he would need to see [facility] again as OP to qualify for transplant-multiple follow-up locally as well
Will need outpatient pulmonary evaluation in their office for PFTs and 6MWT
Patient expressed wishes to possibly follow up locally-we will provide information for this-Consider chronic low-dose steroids, azithromycin, Ohtuvyre nebulizers, Daliresp, Biologics, pulmonary rehabilitation, [place] valves, and transplantation
Dr. Osuna reviewed with patient, sister and on the phone at bedside-01/12/2025
Diagnostic Data
Chest X-Ray: 01/08/25- Volume loss of the left hemithorax with shift of the mediastinum toward the left. Bands of increased opacity within the left mid to lower lung, most likely representing scarring and/or chronic atelectasis. The right lung
appears hyperinflated, findings suggestive of emphysema. Subtle small nodular density suggested within the right lung with peribronchial thickening, suggesting the possibility of small airway pneumonitis and/or bronchitis. Mild blunting of the left
lateral costophrenic angle is most likely chronic pleural thickening, although a small left pleural effusion is also possible. Overall cardiac silhouette size appears within normal limits with no findings to suggest pulmonary edema. Mild
dextroconvex scoliosis centered in the midthoracic spine.
CT Scan: CHEST 01/08/25- Examination is negative for pulmonary embolism. Volume loss of the left hemithorax with bands of scarring/chronic atelectasis within the left lung. Severe changes of emphysema. Multiple small nodular opacities within the
anterior aspect of the right upper lobe, which is likely pneumonia. 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 Fatty infiltration the liver.
Reports and relevant images were personally reviewed.
Total time spent on this consultation __51__ minutes which includes review of history, physical exam, medications, laboratory data, personal review of imaging, extensive review of outpatient records, discussion with care team and respiratory therapy.
Subjective Data
-
Date of Service:
Date of Service: January 21, 2025
Chief Complaint: Pulmonary Follow Up and Dyspnea Follow Up
Subjective:
No new complaints, remains the same as prior
Now on 6-8L per staff, inc and dec requirements
Objective Data
Data Reviewed
Vital Signs / I&O / Oxygen:
Vital Signs
Temp Pulse Resp BP Pulse Ox
98.2 F 84 22 127/75 96
01/21/25 08:00 01/21/25 08:06 01/21/25 08:06 01/21/25 08:06 01/21/25 08:06
Intake and Output
01/20/25 01/21/25 01/22/25
06:59 06:59 06:59
Intake Total 480 / 480
Output Total 1325 / 1325 3725 / 3725
Balance -1325 / -1325 -3245 / -3245
SaO2 96
Nasal Cannula flow liters per 14
minute
Physical Exam
General: Respiratory Distress (None at rest), Comfortable and Other (NAD)
HEENT: Normocephalic, Anicteric and Moist Mucous Membranes
Cardiovascular: Irregular Rhythm and Peripheral Edema (2-3+ bilateral pitting edema)
Respiratory: Clear ( diminished breath sounds, prolonged expiratory time), Non-Labored Respirations, Accessory Resp Muscle Use (n), Stridor (n) and Other (Prolonged expiratory phase-poor air movement. No wheezing this morning)
GI: Soft, Non Distended and Non Tender
Neurology: Awake and Alert
Skin: Warm, Dry, Good Color, Cyanosis (n) and Jaundice
Labs/Micro/Reports
Lab Data
01/21/25 06:30
01/21/25 06:30
--- NOTE | 2025-01-21 13:33 | PTCARENOTE ---
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
--- NOTE | 2025-01-21 14:13 | W.PN.HOSP.TC ---
Today's Communication/Plan
-
continue diuretics; RHC cath today
oral steroids
wean O2 as able; setup home O2 concentrator when closer to [place]
Assessment / Plan
Assessment / Plan
Assessment:
Acute on chronic Hypoxic respiratory failure secondary to Right upper lobe pneumonia
- baseline O2 is 4L, currently at 6-8L today
- wean as able to baseline
- home O2 testing closer to [place]
Severe Emphysema on chronic 4 L nasal cannula (Former smoker 40-year 2 to 3 pack a day quit 7 years ago)
End-stage COPD with flare now-evaluated by lung transplant center at [place] and he backed out and hasnt followed with them in a while
Compensated chronic respiratory acidosis.
House bound on his 3 floor condo as he cant make it on steps even
- continue oral steroids with taper
- continue Pulmicort nebs
- Continue Duonebs
- may need BiPAP or Trilogy setup at home; reviewed with Pulm
- would need local f/u with Pulm as well as transplant evaluation ([place] or [place])
CAP
- Finished 10 days of Rocephin
- finished acute Azithro course; now continue 3x/weekly M/W/F dosing
New Parox A. Fib
- now back in NSR
- continue oral Cardizem/Eliquis
- Echo: with normal EF, dilated RV with normal RV function
- CBC cards following
Acute HFpEF
- Fluctuating weight. Clinically still with significant bilateral lower extremity edema
- continue with IV Lasix; requires intensive monitoring of I/OS, weights, lytes
- RHC today to clarify filling pressures
- consider Diamox if CO2 rises further
- CBC cards following; thoughts about RHC noted
nonocclusive CAD by report
- continue high potency Crestor
Acute on chronic abdominal pain
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 Appreciate GI input who feels this is an incidental finding and not related to his symptoms.
- GI signed off.
- continue with PPI
Mild hyperglycemia
- HgbA1c 5.4% this admission
- likely due to steroids
Essential HTN
- Home regimen consist of Cardizem 240 mg daily, HCTZ 12.5 mg daily, KCl 10 mEq
- Blood pressure under goal. cardizem restarted back for atrial fibrillation.
HLD
- continue high potency Crestor
Hyperkalemia
- unclear etiology
- Urine K gradient once off of lasix
- low K diet
- monitor BMP; K today 4.7
Hyponatremia
- suspect excess ADH sec to pulmonary condition
- follow BMP
DVT ppx: Eliquis
Code: Full
Anticipated Discharge: > 48 hours
Subjective/Interval History
-
Date of Service: January 21, 2025
no new complaints
on 6-8L NC (home was 4L NC)
Objective Data
-
Labs:
Laboratory Results
01/21/25
06:30
WBC 12.4 H
Hgb 12.6 L
Hct 41.1
Plt Count 295 D
Sodium 134 L
Potassium 4.7
Chloride 88 L
Carbon Dioxide 46 H
BUN 30 H
Creatinine 0.9
Glucose 90
Calcium 8.4
Vital Signs:
Vital Signs
Temp Pulse Resp BP Pulse Ox
98.0 F 87 14 121/75 94
01/21/25 11:11 01/21/25 11:21 01/21/25 11:21 01/21/25 10:00 01/21/25 11:21
I&O
01/20/25 01/21/25 01/22/25
06:59 06:59 06:59
Intake Total 480 / 480
Output Total 1325 / 1325 3725 / 3725 1700 / 1700
Balance -1325 / -1325 -3245 / -3245 -1700 / -1700
Physical Exam
-
General: No Apparent Distress
HEENT: Normocephalic and Atraumatic
Respiratory: Negative Wheezes
Cardiac: Regular Rhythm
GI: Soft and Nontender
Musculoskeletal: Edema, Right Lower Extrem and Edema, Left Lower Extrem
Neuro: AO x 3
Psych: Calm
Data Reviewed
-
Total Time Spent with Patient (in minutes): 51
Labs: Labs Reviewed by me
--- NOTE | 2025-01-21 14:15 | ITS.CL.CATH ---
[facility] - Catheterization
Cardiac Catheterization
Procedure Report:
RIGHT HEART CATHETERIZATION
Date of Procedure: 01/21/2025
Referring: Venkatesh Cedeno D.O.
INDICATION: Severe pulmonary disease, acute right-sided heart failure, clarification of volume status.
ACCESS:
5 Montserratian right antecubital vein using a previously placed IV.
CATHETERS:
5 [place]serratian balloon wedge.
PROCEDURE:
An IV was placed by the nursing staff in the right antecubital fossa. The patient was prepped and draped in standard sterile fashion, including copious cleansing of the IV and IV site. The area around the IV was anesthetized with 1% lidocaine. A 5
Montserratian sheath was inserted into the basilic vein. A 5 Montserratian balloon wedge catheter was advanced through the sheath into the superior vena cava. An SVC oxygen saturation was drawn. The balloon wedge catheter was advanced into the pulmonary artery
and a pulmonary artery oxygen saturation was drawn. Arterial oxygen saturation was assumed from pulse oximetry. Cardiac output was calculated using the Arlyn equation. The PA, wedge, RV and RA pressures were measured on pullback. The balloon wedge
catheter was removed. The 5 Montserratian sheath was removed and manual pressure was held for hemostasis.
Weight (kg):����������������������������� ����������� 101.2
PA (s/d/x mmHg):��������������������� ����������� 73/38/49
PCWP (a/v/x mmHg):��������������� ����������� 24//20
RV (s/x mmHg):������������������������ ����������� 73/16
RA (a/v/x mmHg):��������������������� ����������� /
AO (s/d/x mmHg):�������������������������������� 139/86/107 (non-invasive)
SVC SvO2 (%):������������������������ ����������� 73.3
IVC SvO2 (%):������������������������� ����������� Not obtained.
RA SvO2 (%):�������������������������� ����������� Not obtained.
RV SvO2 (%):�������������������������� ����������� Not obtained.
PA SvO2 (%):�������������������������� ����������� 74.6
SaO2 (%):�������������������������������� ����������� 95.0 (assumed)
Hbg (g/dL):������������������������������ ����������� 12.9
Arlyn
CO (liters/minute):�������������������� ����������� 7.80
CI (liters/minute/m2):����������������� ����������� 3.49
Thermodilution
CO (liters/minute):�������������������� ����������� Not performed.
CI (liters/minute/m2):����������������� ����������� Not performed.
TPG (mmHg):��������������������������� ����������� 29
PVR (López Units):����������������� ����������� 3.72
AVO2 Difference (Volume %):��������������� 3.58
Cardiac Power Output (collins):��������������� 1.85 (MAP * CO)/451 (normal 0.5 - 0.7; 0.4 - 0.6 in the elderly)
Cardiac Power Index (collins/m2):����������� 0.83 (MAP * CI)/451
Harika:��������������������������� ����������������������� 2.2 (PAs-PAd)/RA
Radiation (mGy):���������������������� ����������� 6.45
DAP (cm2.Gy):������������������������� ����������� 0.6808
Fluoroscopy time (minutes):������������������ 0.6
CONCLUSION:
1. Moderately elevated filling pressures (PCWP = 20 mmHg at 101.2 kg).
2. 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
3. Normal cardiac indices (cardiac index = 3.49 L/min/m�, cardiac power output = 1.85 W, Harika = 2.2).
RECOMMENDATIONS:
1. Expectant management after right heart catheterization via right antecubital approach.
2. Continue modest diuresis.
3. It appears that chronic hypoxia is likely due to intrinsic pulmonary disease rather than filling pressures.
Copy to: Venkatesh Cedeno D.O.
Venkatesh Cedeno D.O., FACC, FACP
--- NOTE | 2025-01-21 15:18 | PTCARENOTE ---
Assumed care of patient at beginning of this shift from previous RN with 8L midflow in use; POx 91-94% but does desat to 88% with minimal activity. He will purse lip breathe with minimal activity as well; he has recovered without needing to go up in
oxygen. +2 edema to BLE. He was taken to [facility] earlier today by 2 [facility] RNs; when he returned he was on 10L midflow. RUE site dressing dry and intact. Educated patient that his diet is changing to add low sodium and 1500 fluid restriction;
reviewed carefully monitoring fluid intake and choosing foods low in sodium. Patient verbalized understanding of all but does need reinforcement. See worklist for full assessment, vital signs and interventions.
[2025-01-21] MEDS: LASIX 60 MG PO (16:23)
--- NOTE | 2025-01-21 16:49 | CM ---
F/U: Pulmonary shared that the patient can discharge needing additional concentrator for home now that he cannot get below 7 liters at this time. Cardiology still has to finish with the patient then Hospitalist DC patient. Therefore, will have
sitting/ walking oxygen test close to discharge. MANISHA Flor spoke to Al of [facility] who delivered travel oxygen for the patient and will await oxygen test to have larger 10 liter concentrator delivered before discharging. Patient/ who was
over the phone stated he will need transportation and told them MANISHA Flor will see if he qualifies. PLAN: Home with PET[facility] when ready.
[2025-01-21] MEDS: CRESTOR 20 MG PO (19:51)
--- NOTE | 2025-01-21 22:05 | RESPNOTE ---
PT is ordered for BIPAP for HS use to get him acquainted to wearing the mask, as they would like him to use a trilogy vent at home for HS and naps. PT requested to go on the mask @ 2200, but ultimately refused the BIPAP tonight. He remains on the
midflow currently and will attempt placement again tomorrow.
--- NOTE | 2025-01-21 23:00 | PTCARENOTE ---
Pt refusing bipap at this time.
[2025-01-22] VITALS (44 sets, daily range): BP systolic 95–137; BP diastolic 56–102; PULSE 92; O2SAT 83–94; BMI 29.7
[2025-01-22 06:32] LABS: Hematocrit 38.7 % (39.0-52.0); Hemoglobin 12.0 g/dL (13.0-18.0); Mean Corp Hgb Conc. 31.0 g/dL (33.0-37.0); Mean Corpuscular Volume 95.8 fL (80.0-94.0); Platelet Count 226 10^3/uL (130-400); Red Cell Dist. Width 14.6 % (11.5-14.5)
[2025-01-22 06:43] LABS: Blood Urea Nitrogen 33 mg/dl (9-20); Calcium 8.1 mg/dl (8.4-10.2); Chloride 88 mmol/L (98-107); Estimated Creatinine Clearance 87 ml/min; Glucose 114 mg/dl (70-99); Potassium 3.8 mmol/L (3.5-5.1); Sodium 132 mmol/L (135-145); eGFR > 60.00
[2025-01-22 06:57] LABS: Carbon Dioxide 45 mmol/L (22-30)
[2025-01-22] MEDS: DUONEB 3 ML INH ×4 (07:28→20:01)
[2025-01-22] MEDS: PULMICORT 0.5 MG INH ×2 (07:28→20:01)
[2025-01-22] MEDS: CARDIZEM CD 240 MG PO (08:32)
[2025-01-22] MEDS: PROTONIX 40 MG PO (08:32)
[2025-01-22] MEDS: DELTASONE 30 MG PO (08:32)
[2025-01-22] MEDS: ELIQUIS 5 MG PO ×2 (08:32→20:37)
[2025-01-22] MEDS: LASIX 60 MG PO (08:32)
--- NOTE | 2025-01-22 09:17 | W.PN.PUL3 ---
Today's Communication / Plan
-
Remains on same O2 usage, formal eval to be completed
Delivery of 10L concentrator to at home, we discussed needing to FU with [facility]
We can arrange short term FU for 1-2 weeks locally
CM and care team aware for d/c planning, likely in next 24 hours to provide home accommodations
Patient aware and agreeable
Assessment
-
69-year-old male past medical history of severe COPD on 4 L chronic oxygen, hypertension, HLD, presenting with shortness of breath and hypoxic to 64% today. �He was feeling lightheadedness. �Patient also having severe left to right abdominal pain
for several months. �Patient unable to get at the house to get evaluated. �Has been having intermittent constipation.
Being evaluated for [facility] lung transplant. �Colonoscopy was attempted 3 times but patient was never properly evacuated so lung transplant could not be pursued. He was last seen about 1-2 years ago. In ER, vital signs showed tachycardia up to 113.
�Hypoxic requiring 6 L oxygen. Labs show leukocytosis 11.8. Chest x-ray shows nodular density within the right lung peribronchial thickening suggesting small airway pneumonitis/bronchitis. �CT PE shows multiple small nodular opacities within the
anterior aspect of the right upper lobe which is likely pneumonia. �Severe changes of emphysema. �We are consulted for evaluation.
Acute on chronic hypoxemia, baseline use of 4L
Severe end stage COPD/Emphysema, evaluated at [facility] for transplant-now with acute exacerbation
Former [id number]-royr-year, quit 7 years ago
Possible PNA
Sinus tachycardia
Acute on chronic SOB
Met alkalosis, with chronic hypercarbia noted-compensated
Pulmonary hypertension,? Developing cor pulmonale
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
Former smoker, 1PPD for 20 years then 2PPD for 20 more years, quit 5-10 years ago (total PY = 60)
CAD, minimal in 1 artery per patient during transplant w/u, no records
HTN
HLD
Plan
Remains 97% on 8L/baseline use of 4L--O2 requirements seem to be the most limiting factor for discharge
Respiratory decompensation- Patient with end-stage emphysema-patient states that he has not left his third floor condominium for a year because he cannot ambulate on the stairs and has not seen physicians because of this.
Chronic hypercapnia as well- ABG 01/09/25--67/198/7.41
Last seen [facility] 1-2 years ago and did not proceed with transplant testing
Respiratory status remains quite tenuous but slowly improving
Wean oxygen-establish new baseline prior to discharge.
Decadron 4 mg IV every 8 hours-switched to prednisone 30 mg daily
Pulmicort nebulized twice daily
Duo nebs 4 times a day
Usually on Breztri
Mucinex if needed
Patient used BiPAP for about 4 hours last night. Agreeable to trial of BiPAP at home.
2-3+ bilateral pitting edema. Elevated right-sided pulmonary pressures. Still quite hypervolemic, increase Lasix to twice daily dosing.
Cultures reviewed
Blood cultures negative
Influenza negative
Unable to produce sputum
Completed Rocephin, continue azithromycin, Tuesday, Tuesday, Tuesday.
PCT 0.33 with mild elevation, can complete course of abx
proBNP to r/o CHF -- negative
Cardiac w/u at [facility] reportedly good
H/o HTN, he states he had minimal CAD in 1 artery
Cardiology evaluation-correspondence reviewed
Remains on IV lasix BID--transitioned to PO course
Diltiazem drip-converted to oral
Heparin drip-converted to Eliquis
Smoking history noted--60 PY, quit 7 years ago
Continued smoking cessation encouraged
DVT prophylaxis-on Eliquis
Nutrition
Early mobilization/PT/OT
If he improves, he would need to see [facility] again as OP to qualify for transplant-multiple follow-up locally as well
Will need outpatient pulmonary evaluation in their office for PFTs and 6MWT
Patient expressed wishes to possibly follow up locally-we will provide information for this-Consider chronic low-dose steroids, azithromycin, Ohtuvyre nebulizers, Daliresp, Biologics, pulmonary rehabilitation, Isabel valves, and transplantation
Dr. Osuna reviewed with patient, sister and on the phone at bedside-01/12/2025
Reviewed with CM to deliver 10L concentrator
We can make appt for him locally but also advised to obtain a FU from [facility]
Diagnostic Data
Chest X-Ray: 01/08/25- Volume loss of the left hemithorax with shift of the mediastinum toward the left. Bands of increased opacity within the left mid to lower lung, most likely representing scarring and/or chronic atelectasis. The right lung
appears hyperinflated, findings suggestive of emphysema. Subtle small nodular density suggested within the right lung with peribronchial thickening, suggesting the possibility of small airway pneumonitis and/or bronchitis. Mild blunting of the left
lateral costophrenic angle is most likely chronic pleural thickening, although a small left pleural effusion is also possible. Overall cardiac silhouette size appears within normal limits with no findings to suggest pulmonary edema. Mild
dextroconvex scoliosis centered in the midthoracic spine.
CT Scan: CHEST 01/08/25- Examination is negative for pulmonary embolism. Volume loss of the left hemithorax with bands of scarring/chronic atelectasis within the left lung. Severe changes of emphysema. Multiple small nodular opacities within the
anterior aspect of the right upper lobe, which is likely pneumonia. 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 Fatty infiltration the liver.
Reports and relevant images were personally reviewed.
Total time spent on this consultation __51__ minutes which includes review of history, physical exam, medications, laboratory data, personal review of imaging, extensive review of outpatient records, discussion with care team and respiratory therapy.
Subjective Data
-
Date of Service:
Date of Service: January 22, 2025
Chief Complaint: Pulmonary Follow Up and Dyspnea Follow Up
Subjective:
No new events, remains on 8L
Desats with minimal exertion
Objective Data
Data Reviewed
Vital Signs / I&O / Oxygen:
Vital Signs
Temp Pulse Resp BP Pulse Ox
98.1 F 77 14 125/73 94
01/22/25 07:36 01/22/25 08:45 01/22/25 08:45 01/22/25 08:45 01/22/25 08:45
Intake and Output
01/21/25 01/22/25 01/23/25
06:59 06:59 06:59
Intake Total 480 / 480
Output Total 3725 / 3725 4450 / 4450
Balance -3245 / -3245 -4450 / -4450
SaO2 94
Nasal Cannula flow liters per 14
minute
Physical Exam
General: Respiratory Distress (None at rest), Comfortable and Other (NAD)
HEENT: Normocephalic, Anicteric and Moist Mucous Membranes
Cardiovascular: Irregular Rhythm and Peripheral Edema (2-3+ bilateral pitting edema)
Respiratory: Clear ( diminished breath sounds, prolonged expiratory time), Non-Labored Respirations, Accessory Resp Muscle Use (n), Stridor (n) and Other (Prolonged expiratory phase-poor air movement)
GI: Soft, Non Distended and Non Tender
Neurology: Awake, Alert, Oriented and No Motor Deficits
Skin: Warm, Dry, Good Color, Cyanosis (n) and Jaundice
Labs/Micro/Reports
Lab Data
01/22/25 05:00
01/22/25 05:00
--- NOTE | 2025-01-22 09:53 | W.PN.CD ---
Today's Communication / Plan
-
Switch Lasix to p.o. 40 mg twice daily
Discharge planning.
Will need labs in 1 week (sent in ECW) and office follow-up in 2 weeks.
Cardiology will sign off at this time. Please call with any additional questions or concerns.
Impression / Plan
-
Impression/Plan: 69M with severe COPD requiring 4 L nasal cannula of oxygen supplementation, nonobstructive CAD, hypertension, and hypercholesterolemia who presented 01/08/2025 with a chief complaint of shortness of breath, subsequently developing
new atrial fibrillation with rapid ventricular response.
Outpatient utilization review rn: [facility].
#Hypoxemic respiratory failure
-Acute on chronic, requiring 4LNC supplemental O2 at home.
-Etiology is multifactorial (known COPD, new RUL community aquired PNA).
-Management through primary service/pulmonary.
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
-Lasix 40mg BID for elevated PCWP. Labs in 1 week.
#Heart failure, suspected cor pulmonale
-Acute.
-Primarily right sided (perhaps some component of left sided - unclear if due to pulmonary venous hypertension vs. progression of primary pulmonary disease).
-Switch Lasix to p.o. 40 mg twice daily
-RHC today to clarify filling pressures and degree of left vs. right failure.
#Atrial fibrillation
-Paroxysmal, new diagnosis - onset 01/15/2025 at 03:26.
-Currently in NSR.
-Rate/rhythm control with diltiazem 240 mg PO daily. No beta sierra given significant lung disease.
-[id number]: score at least 2 (HTN, age 65-74)
-Oral Anticoagulation: Apixaban 5 mg twice daily
#COPD
-Acute exacerbation, severe.
-He is considering following back up with [facility] regarding transplant.
-Management by primary service + pulmonary.
#Non-occlusive CAD
-Chronic, by report.
-No role for ASA given need for apixaban.
-Continue rosuvastatin 20 mg daily.
#Hypertension
-Chronic, stable.
-Stable on diltiazem 240 mg daily.
#Hypercholesterolemia
-Chronic, stable.
-Continue rosuvastatin 20 mg.
-Goal LDL < 55.
Subjective/Interval History:
SOB improved.
DATA:
CT Chest, 01/08/2025:
IMPRESSION:
Examination is negative for urinary embolism.
Volume loss of the left hemithorax with bands of scarring/chronic atelectasis within the left lung.
Severe changes of emphysema.
Multiple small nodular opacities within the anterior aspect of the right upper lobe, which is likely pneumonia.
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
Fatty infiltration the liver.
TTE, 01/15/2025:
SUMMARY
1. Normal left ventricular size, and systolic function. Estimated LVEF 55-60%.
2. Aortic valve sclerosis without stenosis.
3. Mildly enlarged RV size with normal systolic function.
4. Mild tricuspid regurgitation. Estimated pulmonary artery pressure of 37 mmHg assuming a right atrial pressure of 8 mmHg. Mildly elevated PASP.
5. No prior study for comparison.
Physical Exam
Vital Signs/Labs
Vital Signs
Temp Pulse Resp BP Pulse Ox
98.1 F 77 14 125/73 94
01/22/25 07:36 01/22/25 08:45 01/22/25 08:45 01/22/25 08:45 01/22/25 08:45
01/21/25 01/22/25 01/23/25
06:59 06:59 06:59
Actual Weight 223 lb 5.252 oz 218 lb 14.704 oz
01/22/25 05:00
01/22/25 05:00
APTT Cancelled 01/16/25 09:45
Magnesium 2.4 mg/dl (1.6-2.3) H 01/15/25 04:31
01/09/25 01/15/25
07:29 04:31
Don-A-Pzyafjisdyl Pept [phone]
Physical Exam
Constitutional: No acute distress and Comfortable
Cardiovascular: Rhythm & rate is regular, Pedal edema is absent, S1S2 is normal and Murmur/rub/gallop absent
Respiratory: Respiratory effort normal and Lungs clear to auscul.
Neuro/Psych: AO x 3
Data Reviewed
-
Date of Service: January 22, 2025
Medical Decision Making: Reviewed Test Results, Test Interpretation and Review of Case with other Provider
EKG: Tracing Personally Visualized and interpreted
Echo: Report Reviewed by me
Labs: Labs Reviewed by me
--- NOTE | 2025-01-22 11:29 | W.PN.HOSP.TC ---
Today's Communication/Plan
-
dc to home in 24 hours after O2 and transport setup.
VN consult
Assessment / Plan
Assessment / Plan
Assessment:
Acute on chronic Hypoxic respiratory failure secondary to Right upper lobe pneumonia
- baseline O2 is 4L, currently requiring 8 Liter rest and 10L exertion per RT home O2 evaluation
- Patient is in need of oxygen at 8-10 liters/minute via nasal cannula continuously due to pulse oximetry of 83% on baseline 4L NC. Oxygen will help to improve hypoxemia. Patient is mobile within the home. DuoNeb therapy has been tried and is
ineffective in treating hypoxemia related symptoms. Oxygen is needed to improve symptoms.
Severe Emphysema on chronic 4 L nasal cannula (Former smoker 40-year 2 to 3 pack a day quit 7 years ago)
End-stage COPD with flare now-evaluated by lung transplant center at [place] and he backed out and hasnt followed with them in a while
Compensated chronic respiratory acidosis.
House bound on his 3 floor condo as he cant make it on steps even
- continue oral steroids with taper; will likely settle on 20mg daily of prednisone at discharge
- continue Pulmicort nebs or Breztri per patient preference
- Continue Duonebs QID and prn
- may need BiPAP or Trilogy setup at home once OP office visits established; reviewed with Pulm
- would need local f/u with Pulm as well as transplant evaluation (previously seen at [place])
CAP
- Finished 10 days of Rocephin
- finished acute Azithro course; now continue 3x/weekly M/W/F dosing
New Parox A. Fib
- now back in NSR
- continue oral Cardizem/Eliquis
- Echo: with normal EF, dilated RV with normal RV function
- CBC cards following
Acute HFpEF
- Fluctuating weight. Clinically still with significant bilateral lower extremity edema
- s/p RHC 10/20
- s/p IV Lasix course; now continue Lasix 40mg BID at home
- OP CBC cards f/u
nonocclusive CAD by report
- continue high potency Crestor
Acute on chronic abdominal pain
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 Appreciate GI input who feels this is an incidental finding and not related to his symptoms.
- GI signed off.
- continue with PPI
Mild hyperglycemia
- HgbA1c 5.4% this admission
- likely due to steroids
Essential HTN
- continue Cardizem/Lasix
HLD
- continue high potency Crestor
Hyperkalemia
- unclear etiology
- Urine K gradient once off of lasix
- low K diet
- monitor BMP; K today 3.8
Hyponatremia
- suspect excess ADH sec to pulmonary condition
- follow BMP
DVT ppx: Eliquis
Code: Full
Anticipated Discharge: > 48 hours
Subjective/Interval History
-
Date of Service: January 22, 2025
reports stable SOB
no new complaints
Objective Data
-
Labs:
Laboratory Results
01/22/25
05:00
WBC 10.8
Hgb 12.0 L
Hct 38.7 L
Plt Count 226 D
Sodium 132 L
Potassium 3.8
Chloride 88 L
Carbon Dioxide 45 H
BUN 33 H
Creatinine 0.9
Glucose 114 H
Calcium 8.1 L
Vital Signs:
Vital Signs
Temp Pulse Resp BP Pulse Ox
98.1 F 90 15 125/73 94
01/22/25 07:36 01/22/25 11:21 01/22/25 11:21 01/22/25 08:45 01/22/25 08:45
I&O
01/21/25 01/22/25 01/23/25
06:59 06:59 06:59
Intake Total 480 / 480
Output Total 3725 / 3725 4450 / 4450
Balance -3245 / -3245 -4450 / -4450
Physical Exam
-
General: No Apparent Distress
HEENT: Normocephalic and Atraumatic
Respiratory: Negative Wheezes
Cardiac: Regular Rhythm and S1/S2
GI: Soft and Nontender
Genito-urinary: No Costovertebral Tender
Neuro: AO x 3
Psych: Calm
Data Reviewed
-
Total Time Spent with Patient (in minutes): 44
Labs: Labs Reviewed by me
--- NOTE | 2025-01-22 13:20 | PTCARENOTE ---
Pt's assessment as documented. Aox3. NSR on tele monitor. Sating low to mid 90's on 8L. Pt desats with minimal activity to the low 80s and requires rest breaks to recover. Medications administered as ordered, see MAR. Ringing appropriately, call
hernández within reach.
--- NOTE | 2025-01-22 15:07 | VNURNOTE ---
Rec'ed updates from MANISHA Flor. He is aware that pt not current w/ a PCP. He is aware [facility] cannot see until active w/a PCP. Liaison spoke with spouse Chanell. Suggested that pt establish a PCP who makes house calls. Provided contacts for 3
house-call PCP practices. Spouse cooperative and agreeable to call. She understands VN can start after he is seen by PCP. [facility] will follow up within a few days to confirm PCP appt. Spouse verbalized understanding.
--- NOTE | 2025-01-22 16:29 | CM ---
F/U: Patient is now ready for discharge so the Home Oxygen Test was completed, patient qualifies for the 10 liter concentrator, and MANISHA Flor faxed all necessary paperwork to [facility]: [phone]. MANISHA Flor spoke to Al, the liaison who was
unable to reach the for setting up a delivery. MANISHA Flor reached her later and she is waiting for call back on when this can be delivered. asked about Home VN/PT. MANISHA Flor found out that patient does NOT have PCP in the community so
was given [facility] PCP to visit then once they visit then [facility] can start services and [facility]. MANISHA Flor will give DME company to call for further equipment and arranged an ambulance for the patient tomorrow. PLAN:
Home w/ DME
[2025-01-22] MEDS: LASIX 40 MG PO (17:17)
--- NOTE | 2025-01-22 19:40 | PTCARENOTE ---
at bedside requesting call from hospitalist and case operator in am. will pass on to dayshift RN.
--- NOTE | 2025-01-22 20:28 | RESPNOTE ---
Patient declining bipap for tonight. States he will let respiratory know if he changes his mind. Maintained on 8-10L MFNC at this time.
[2025-01-22] MEDS: CRESTOR 20 MG PO (20:37)
[2025-01-23] VITALS (8 sets, daily range): BP systolic 91–125; BP diastolic 55–103; BMI 28.9
--- NOTE | 2025-01-23 03:45 | DOWNTIME ---
There was a [employer] [facility] Downtime on 01/23/2025 from 0100 to 01/23/2025 at 0215. Downtime documentation of patient's care, including medication administrations, has been reconciled in the electronic record per guidelines. Refer to the
patient's paper chart under the miscellaneous tab to see printed paper medication records and downtime forms.
[2025-01-23 06:23] LABS: Hematocrit 40.4 % (39.0-52.0); Hemoglobin 12.3 g/dL (13.0-18.0); Mean Corp Hgb Conc. 30.4 g/dL (33.0-37.0); Mean Corpuscular Volume 96.4 fL (80.0-94.0); Platelet Count 211 10^3/uL (130-400); Red Cell Dist. Width 14.5 % (11.5-14.5)
[2025-01-23 06:50] LABS: Blood Urea Nitrogen 27 mg/dl (9-20); Calcium 8.4 mg/dl (8.4-10.2); Chloride 87 mmol/L (98-107); Estimated Creatinine Clearance 98 ml/min; Glucose 98 mg/dl (70-99); Potassium 4.4 mmol/L (3.5-5.1); Sodium 135 mmol/L (135-145); eGFR > 60.00
[2025-01-23] MEDS: PULMICORT 0.5 MG INH (07:09)
[2025-01-23] MEDS: DUONEB 3 ML INH ×3 (07:10→15:35)
[2025-01-23 07:11] LABS: Carbon Dioxide 50 mmol/L (22-30)
[2025-01-23] MEDS: ELIQUIS 5 MG PO (08:14)
[2025-01-23] MEDS: DELTASONE 30 MG PO (08:15)
[2025-01-23] MEDS: LASIX 40 MG PO ×2 (08:15→16:04)
[2025-01-23] MEDS: ZITHROMAX 500 MG PO (08:15)
[2025-01-23] MEDS: CARDIZEM CD 240 MG PO (08:15)
[2025-01-23] MEDS: PROTONIX 40 MG PO (08:15)
--- NOTE | 2025-01-23 10:43 | PTCARENOTE ---
Assumed care of patient at beginning of this shift from previous RN. O2 8L n/c in use; current POx 93-94%. He does decrease with activity; 88% when sitting on side of bed using urinal; he did recover. +[employer], even with minimal exertion. Patient
concerned about discharge and states had questions as well; CM in to speak with patient then spoke with his by phone. Patient for discharge today. Per patient, his works until 6pm but his sister will be at his home. He states the
oxygen has been delivered. Per CM patient will be for pickup this afternoon to transport home. He will contact company to have nebulizer in place for patient at home and that PT will provide patient with walker. There are 2 portable oxygen tanks
that were delivered to patient's room by oxygen [employer] [facility] u. CM stated transport company most likely will not tale with them today but will be here tomorrow to olive picker and take to patient's home. CM stated he will call patient's sister to see if she
will come get it. See worklist for full assessment and vital signs.
--- NOTE | 2025-01-23 10:55 | W.PN.CD ---
Today's Communication / Plan
-
Start acetazolamide 250 mg PO daily.
Outpatient BMP in one week.
We will adjust acetazolamide based on these results.
Discharge planning.
Impression / Plan
-
Impression/Plan: 69M with severe COPD requiring 4 L nasal cannula of oxygen supplementation, nonobstructive CAD, hypertension, and hypercholesterolemia who presented 01/08/2025 with a chief complaint of shortness of breath, subsequently developing
new atrial fibrillation with rapid ventricular response.
Outpatient product management analyst: [facility].
#Hypoxemic respiratory failure
-Acute on chronic, requiring 4LNC supplemental O2 at home.
-Etiology is multifactorial (known COPD, new RUL community aquired PNA).
-Management through primary service/pulmonary.
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
-Lasix 40mg BID for elevated PCWP. Labs in 1 week.
-Start acetazolamide 250 mg PO daily. We will adjust based on his outpatient labs in one week.
#Heart failure, suspected cor pulmonale
-Acute.
-Primarily right sided (perhaps some component of left sided - unclear if due to pulmonary venous hypertension vs. progression of primary pulmonary disease).
-GDMT as tolerated - modified as LV appears generally normal.
-Diuretics: Furosemide 40 mg PO BID, acetazolamide 250 mg PO daily - adjust based on outpatient labs in one week.
-Beta sierra: Deferred due to severe pulmonary disease.
-ACEI/ARB/ARNi: Not currently indicated, LVEF > 40%.
-MRA: Not currently indicated.
-SGLT2i: On hold until we determine diuretic dosing with acetazolamide.
-ICD: Not currently indicated.
#Atrial fibrillation
-Paroxysmal, new diagnosis - onset 01/15/2025 at 03:26.
-Currently in NSR.
-Rate/rhythm control with diltiazem 240 mg PO daily. No beta sierra given significant lung disease.
-[id number]: score at least 2 (HTN, age 65-74)
-Oral Anticoagulation: Apixaban 5 mg twice daily
#COPD
-Acute exacerbation, severe.
-He is returning to [facility] regarding transplant.
-Management by primary service + pulmonary.
#Non-occlusive CAD
-Chronic, by report.
-No role for ASA given need for apixaban.
-Continue rosuvastatin 20 mg daily.
#Hypertension
-Chronic, stable.
-Stable on diltiazem 240 mg daily.
#Hypercholesterolemia
-Chronic, stable.
-Continue rosuvastatin 20 mg.
-Goal LDL < 55.
Subjective/Interval History:
Weight continues to fall.
Furosemide changed to 40 mg PO BID yesterday (from 60 mg BID).
Home oxygen concentrator has been delivered.
CO2 now up to 50.
DATA:
CT Chest, 01/08/2025:
IMPRESSION:
Examination is negative for urinary embolism.
Volume loss of the left hemithorax with bands of scarring/chronic atelectasis within the left lung.
Severe changes of emphysema.
Multiple small nodular opacities within the anterior aspect of the right upper lobe, which is likely pneumonia.
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
Fatty infiltration the liver.
TTE, 01/15/2025:
SUMMARY
1. Normal left ventricular size, and systolic function. Estimated LVEF 55-60%.
2. Aortic valve sclerosis without stenosis.
3. Mildly enlarged RV size with normal systolic function.
4. Mild tricuspid regurgitation. Estimated pulmonary artery pressure of 37 mmHg assuming a right atrial pressure of 8 mmHg. Mildly elevated PASP.
5. No prior study for comparison.
Physical Exam
Vital Signs/Labs
Vital Signs
Temp Pulse Resp BP Pulse Ox
36.7 C 96 19 114/76 94
01/23/25 08:27 01/23/25 10:00 01/23/25 10:00 01/23/25 10:00 01/23/25 10:00
01/21/25 01/22/25 01/23/25
11:59 11:59 11:59
Actual Weight 101.3 kg 99.3 kg 96.5 kg
01/23/25 06:00
01/23/25 06:00
APTT Cancelled 01/16/25 09:45
Magnesium 2.4 mg/dl (1.6-2.3) H 01/15/25 04:31
01/09/25 01/15/25
07:29 04:31
Ixt-H-Uzfcmyacxxm Pept [phone]
Physical Exam
Constitutional: No acute distress and Comfortable
EENT: Anicteric and Moist mucous membranes
Cardiovascular: Rhythm & rate is regular, JVD pressure is normal, Pedal edema present (Much improved.) and Murmur/rub/gallop absent
Respiratory: Respiratory effort normal and Other (Decreased throughout.)
GI: Soft, Distention absent, Flat, Non tender and Normal bowel sounds
Neuro/Psych: AO x 3
Data Reviewed
-
Date of Service: January 23, 2025
Medical Decision Making: Reviewed Test Results, Independent Historian Assessment and Test Interpretation
EKG: Tracing Personally Visualized and interpreted and Report Reviewed by me
Echo: Tracing Personally Visualized and interpreted and Report Reviewed by me
X-Ray/CT/US/MRI/NUC/PET: Image Personally Visualized and interpreted and Report Reviewed by me
Medical Tests (PFT, Pathology etc): Report Reviewed by me
Labs: Labs Reviewed by me
--- NOTE | 2025-01-23 11:36 | W.PN.PUL3 ---
Today's Communication / Plan
-
Remains on 8L, reviewed O2 management at home with patient and on phone
Steroid taper with plan to keep dose that keeps symptoms controlled
Continue nebs at home
OP FU to be arranged for short term, but will need group home FU at [place]
Discharge planning otherwise per team today
Assessment
-
69-year-old male past medical history of severe COPD on 4 L chronic oxygen, hypertension, HLD, presenting with shortness of breath and hypoxic to 64% today. �He was feeling lightheadedness. �Patient also having severe left to right abdominal pain
for several months. �Patient unable to get at the house to get evaluated. �Has been having intermittent constipation.
Being evaluated for [facility] lung transplant. �Colonoscopy was attempted 3 times but patient was never properly evacuated so lung transplant could not be pursued. He was last seen about 1-2 years ago. In ER, vital signs showed tachycardia up to 113.
�Hypoxic requiring 6 L oxygen. Labs show leukocytosis 11.8. Chest x-ray shows nodular density within the right lung peribronchial thickening suggesting small airway pneumonitis/bronchitis. �CT PE shows multiple small nodular opacities within the
anterior aspect of the right upper lobe which is likely pneumonia. �Severe changes of emphysema. �We are consulted for evaluation.
Acute on chronic hypoxemia, baseline use of 4L
Severe end stage COPD/Emphysema, evaluated at [facility] for transplant-now with acute exacerbation
Former bwlxic-71-tzhr-year, quit 7 years ago
Possible PNA
Sinus tachycardia
Acute on chronic SOB
Met alkalosis, with chronic hypercarbia noted-compensated
Pulmonary hypertension,? Developing cor pulmonale
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
Former smoker, 1PPD for 20 years then 2PPD for 20 more years, quit 5-10 years ago (total PY = 60)
CAD, minimal in 1 artery per patient during transplant w/u, no records
HTN
HLD
Plan
Remains 97% on 8L/baseline use of 4L--O2 requirements seem to be the most limiting factor for discharge
Respiratory decompensation- Patient with end-stage emphysema-patient states that he has not left his third floor condominium for a year because he cannot ambulate on the stairs and has not seen physicians because of this.
Chronic hypercapnia as well- ABG 01/09/25--67/198/7.41
Last seen [facility] 1-2 years ago and did not proceed with transplant testing
Respiratory status remains quite tenuous but slowly improving
Wean oxygen-establish new baseline prior to discharge.
Decadron 4 mg IV every 8 hours-switched to prednisone 30 mg daily
Pulmicort nebulized twice daily
Duo nebs 4 times a day
Usually on Breztri
Mucinex if needed
Patient used BiPAP for about 4 hours last night. Agreeable to trial of BiPAP at home.
2-3+ bilateral pitting edema. Elevated right-sided pulmonary pressures. Still quite hypervolemic, increase Lasix to twice daily dosing.
Cultures reviewed
Blood cultures negative
Influenza negative
Unable to produce sputum
Completed Rocephin, continue azithromycin, Tuesday, Tuesday, Tuesday.
PCT 0.33 with mild elevation, can complete course of abx
proBNP to r/o CHF -- negative
Cardiac w/u at [facility] reportedly good
H/o HTN, he states he had minimal CAD in 1 artery
Cardiology evaluation-correspondence reviewed
Remains on IV lasix BID--transitioned to PO course
Diltiazem drip-converted to oral
Heparin drip-converted to Eliquis
Smoking history noted--60 PY, quit 7 years ago
Continued smoking cessation encouraged
DVT prophylaxis-on Eliquis
Nutrition
Early mobilization/PT/OT
If he improves, he would need to see [facility] again as OP to qualify for transplant-multiple follow-up locally as well
Will need outpatient pulmonary evaluation in their office for PFTs and 6MWT
Patient expressed wishes to possibly follow up locally-we will provide information for this-Consider chronic low-dose steroids, azithromycin, Ohtuvyre nebulizers, Daliresp, Biologics, pulmonary rehabilitation, [place] valves, and transplantation
Dr. Osuna reviewed with patient, sister and on the phone at bedside-01/12/2025
Reviewed with CM to deliver 10L concentrator
We can make appt for him locally but also advised to obtain a FU from [facility]
Diagnostic Data
Chest X-Ray: 01/08/25- Volume loss of the left hemithorax with shift of the mediastinum toward the left. Bands of increased opacity within the left mid to lower lung, most likely representing scarring and/or chronic atelectasis. The right lung
appears hyperinflated, findings suggestive of emphysema. Subtle small nodular density suggested within the right lung with peribronchial thickening, suggesting the possibility of small airway pneumonitis and/or bronchitis. Mild blunting of the left
lateral costophrenic angle is most likely chronic pleural thickening, although a small left pleural effusion is also possible. Overall cardiac silhouette size appears within normal limits with no findings to suggest pulmonary edema. Mild
dextroconvex scoliosis centered in the midthoracic spine.
CT Scan: CHEST 01/08/25- Examination is negative for pulmonary embolism. Volume loss of the left hemithorax with bands of scarring/chronic atelectasis within the left lung. Severe changes of emphysema. Multiple small nodular opacities within the
anterior aspect of the right upper lobe, which is likely pneumonia. 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 Fatty infiltration the liver.
Reports and relevant images were personally reviewed.
Total time spent on this consultation __45__ minutes which includes review of history, physical exam, medications, laboratory data, personal review of imaging, extensive review of outpatient records, discussion with care team and respiratory therapy.
Subjective Data
-
Date of Service:
Date of Service: January 23, 2025
Chief Complaint: Pulmonary Follow Up and Dyspnea Follow Up
Subjective:
No clinical changes, remanins on 8L
Objective Data
Data Reviewed
Vital Signs / I&O / Oxygen:
Vital Signs
Temp Pulse Resp BP Pulse Ox
98.6 F 88 18 114/76 95
01/23/25 11:18 01/23/25 11:35 01/23/25 11:35 01/23/25 10:00 01/23/25 11:24
Intake and Output
01/22/25 01/23/25 01/24/25
06:59 06:59 06:59
Output Total 4450 / 4450 3950 / 3950 1150 / 1150
Balance -4450 / -4450 -3950 / -3950 -1150 / -1150
SaO2 95
Nasal Cannula flow liters per 8
minute
Physical Exam
General: Respiratory Distress (None at rest), Comfortable and Other (NAD)
HEENT: Normocephalic, Anicteric and Moist Mucous Membranes
Cardiovascular: Irregular Rhythm and Peripheral Edema (2-3+ bilateral pitting edema)
Respiratory: Clear ( diminished breath sounds, prolonged expiratory time), Non-Labored Respirations, Accessory Resp Muscle Use (n), Stridor (n) and Other (Prolonged expiratory phase-poor air movement)
GI: Soft, Non Distended and Non Tender
Neurology: Awake, Alert, Oriented and No Motor Deficits
Skin: Warm, Dry, Good Color, Cyanosis (n) and Jaundice
Labs/Micro/Reports
Lab Data
01/23/25 06:00
01/23/25 06:00
[2025-01-23] MEDS: DIAMOX 250 MG PO (12:22)
--- NOTE | 2025-01-23 12:44 | W.PN.HOSP.TC ---
Today's Communication/Plan
-
dc home/VN, home O2 and DME
OP Pulm f/u in 1-2 weeks and OP [facility] f/u for transplant eval
Assessment / Plan
Assessment / Plan
Assessment:
Acute on chronic Hypoxic respiratory failure secondary to Right upper lobe pneumonia
- baseline O2 is 4L, currently requiring 8 Liter rest and 10L exertion per RT home O2 evaluation
- Patient is in need of oxygen at 8-10 liters/minute via nasal cannula continuously due to pulse oximetry of 83% on baseline 4L NC. Oxygen will help to improve hypoxemia. Patient is mobile within the home. DuoNeb therapy has been tried and is
ineffective in treating hypoxemia related symptoms. Oxygen is needed to improve symptoms.
Severe Emphysema on chronic 4 L nasal cannula (Former smoker 40-year 2 to 3 pack a day quit 7 years ago)
End-stage COPD with flare now-evaluated by lung transplant center at [facility] and he backed out and hasnt followed with them in a while
Compensated chronic respiratory acidosis.
House bound on his 3 floor condo as he cant make it on steps even
- continue oral steroids with taper down to prednisone 20mg daily of prednisone at discharge
- continue Pulmicort nebs or Breztri per patient preference
- Continue Duonebs QID and prn
- may need BiPAP or Trilogy setup at home once OP office visits established; reviewed with Pulm
- would need local f/u with Pulm as well as transplant evaluation (previously seen at [facility] [place])
CAP
- Finished 10 days of Rocephin
- finished acute Azithro course; now continue 3x/weekly M/W/F dosing
New Parox A. Fib
- now back in NSR
- continue oral Cardizem/Eliquis
- Echo: with normal EF, dilated RV with normal RV function
- CBC cards following
Acute HFpEF
- Fluctuating weight. Clinically still with significant bilateral lower extremity edema
- s/p RHC 10/20
- s/p IV Lasix course; now continue Lasix 40mg BID at home
- Diamox in setting of metabolic alkalosis
- OP CBC cards f/u
nonocclusive CAD by report
- continue high potency Crestor
Acute on chronic abdominal pain
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 Appreciate GI input who feels this is an incidental finding and not related to his symptoms.
- GI signed off.
- continue with PPI
Mild hyperglycemia
- HgbA1c 5.4% this admission
- likely due to steroids
Essential HTN
- continue Cardizem/Lasix
HLD
- continue high potency Crestor
Hyperkalemia
- unclear etiology
- Urine K gradient once off of lasix
- low K diet
- monitor BMP; K today 3.8
Hyponatremia
- suspect excess ADH sec to pulmonary condition
- follow BMP
DVT ppx: Eliquis
Code: Full
More than 30 minutes spent in discharge including
Final examination of the patient
Summarizing hospital stay
Instructions for continuing care to all relevant caregivers
Preparation of discharge records, prescriptions, and referral forms
Total time spent (in minutes):41
Anticipated Discharge: Today
Subjective/Interval History
-
Date of Service: January 23, 2025
resting comfortably, no complaints at present
Objective Data
-
Labs:
Laboratory Results
01/23/25
06:00
WBC 9.9
Hgb 12.3 L
Hct 40.4
Plt Count 211
Sodium 135
Potassium 4.4
Chloride 87 L
Carbon Dioxide 50 H
BUN 27 H
Creatinine 0.8
Glucose 98
Calcium 8.4
Vital Signs:
Vital Signs
Temp Pulse Resp BP Pulse Ox
98.6 F 88 18 114/76 95
01/23/25 11:18 01/23/25 11:35 01/23/25 11:35 01/23/25 10:00 01/23/25 11:24
I&O
01/22/25 01/23/25 01/24/25
06:59 06:59 06:59
Output Total 4450 / 4450 3950 / 3950 1150 / 1150
Balance -4450 / -4450 -3950 / -3950 -1150 / -1150
Physical Exam
-
General: No Apparent Distress
HEENT: Normocephalic and Atraumatic
Respiratory: Decreased Breath Sounds; Negative Wheezes
Cardiac: Regular Rhythm and S1/S2
GI: Soft and Nontender
Musculoskeletal: Edema, Right Lower Extrem and Edema, Left Lower Extrem
Neuro: AO x 3
Psych: Calm
Data Reviewed
-
Total Time Spent with Patient (in minutes): 41
Labs: Labs Reviewed by me
--- NOTE | 2025-01-23 12:49 | W.DCSUMMARY ---
Discharge Summary
Discharge Data
Date of Admission: 01/08/25
Date of Discharge: 01/23/25
-
Pending Results: No
Hospital Course
69 y/o M with chronic hypoxic respiratory failure from COPD on 4L NC, chronic respiratory acidosis presented to ER on 01/08 with SOB and hypoxia. He was evaluated by Pulmonary and was found to have acute COPD exacerbation and pneumonia. He was placed
on IV steroids (later transitioned to oral steroids with taper) and IV abx (completed a course of antibiotics for CAP). He was placed on Budesonide and DuoNeb along with 3x/weekly Azithromycin. He will follow up with Pulmonary locally and with
[facility] for [facility] eval. Home O2 testing revealed O2 needs of 8L with rest and 10 L with exertion.
Patient also had acute HFpEF and A. Fib and was seen by Cardiology. He completed a course of IV Diuresis and was transition to oral Lasix + Diamox. He was started on Cardizem and Eliquis for A. Fib. His Echo showed a normal EF, dilated RV with
normal RV function.
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 Pain improved with PPI.
Patient was discharged home with VN on 01/23/25
Discharge Plan
-
Patient Disposition: Home with Home Care
Discharge Diagnosis/Procedures: severe COPD with exacerbation, acute CHF
Condition: Fair
Diet: 2 Gram Sodium and Restrict fluids to 48 oz
Activity: As tolerated
Other Services: VN, PT and OT
Referrals:
Sondra Owusu DO [Active, Pulmonary Medicine] - in one to two weeks
Referral Note: With PFTs
NONE,* [Family Provider, Internal Medicine]
Dexter Alatorre MD [Active, Cardiology] - in two weeks
Prescriptions:
New
azithromycin 250 mg Tablet
500 mg PO MOWEFR Qty: 12 1RF
ipratropium-albuterol 0.5 mg-3 mg(2.5 mg base)/3 mL Solution For Nebulization
3 ml inhalation R QID Qty: 90 1RF
ipratropium-albuterol 0.5 mg-3 mg(2.5 mg base)/3 mL Solution For Nebulization
3 ml inhalation R Q4HPRN PRN (Reason: wheezing) Qty: 90 0RF
pantoprazole 40 mg Tablet,Delayed Release (Dr/Ec)
40 mg PO DAILY Qty: 30 1RF
budesonide 0.5 mg/2 mL Suspension For Nebulization
0.5 mg inhalation R BID Qty: 60 1RF
prednisone 10 mg tablet
10 mg PO DIRECTED Qty: 100 0RF
Rx Instructions:
take 30mg daily x 1 week, then go to 20mg daily until seen in pulmonary office
Breztri Aerosphere 160-9-4.8 mcg/actuation HFA aerosol inhaler
2 inh inhalation BID Qty: 10.7 1RF
potassium chloride [Klor-Con 10] 10 mEq tablet extended release
10 meq PO DAILY Qty: 30 1RF
furosemide [Lasix] 40 mg tablet
40 mg PO BID Qty: 60 1RF
Eliquis 5 mg tablet
5 mg PO BID Qty: 60 1RF
acetazolamide 250 mg Tablet
250 mg PO DAILY Qty: 30 1RF
Continued
diltiazem HCl 240 mg capsule,extended release 24hr
240 mg PO DAILY
rosuvastatin 10 mg tablet
10 mg PO HS
albuterol sulfate 90 mcg/actuation HFA aerosol inhaler
90 mcg INHALATION DAILY Qty: 8.5 1RF
Discontinued
hydrochlorothiazide 12.5 mg tablet
12.5 mg PO DAILY
Breztri Aerosphere
2 puff inhalation DAILY
Patient Comments:
Patient ran out several months ago unable to get authorization due to being homebound
Rx Instructions:
640 mcg/36 mcg / 19.2 mcg
potassium chloride
10 meq PO DAILY
Discharge Orders:
Discharge Patient (As Directed); Ordered 01/23/25
Ordered By: Nadia Garcia
Discharge Date and Time
Print Language: LEBANESE
--- NOTE | 2025-01-23 13:57 | PTCARENOTE ---
Patient for discharge. Diamox added to med list in hospital by human resources manager manufacturing. Reviewed with Dr Garcia who added to home med list. Patient informed human resources manager manufacturing just now that he does not know how to use nebulizer. This nurse notified CM who contacted
[facility] and was informed that patient had nebulizer delivered in 2021. CM to verify with company that they will educated patient in how to use. CM informed this nurse that was given information to contact a new PCP that will see patient via
house call but had not set that up as of yet. Per CM, patient cannot be seen by VN until he has a PCP. TT set up to notify Dr Garcia. CM verified with nebulizer company that they will teach him how to use equipment.
--- NOTE | 2025-01-23 17:02 | CM ---
MANISHA Flor learned that patient is still ready for discharge, called the to inquire when the 10 liter concentrator will be delivered by [facility]. Chanell called back, said it will be there by 10am because patient's sister Lavern
(#[phone]) is there. Then Chanell called back to ask for the following DME/ questions/ equipment:
-Questions about Medications
-Walker
-Shower Chair
-Electric Wheelchair
-Stair [place]
-Transportation Resources
-Nebulizer
-Trilogy
With the Shower chair, Electric wheelchair, Transportation resources, and Stair [place], texted her companies to call. Patient was given a rolling walking, the patient has a nebulizer that was delivered in 2022 according to [facility], so [facility] will
send medications tomorrow and MANISHA Flor found out nebulizer medications (all others) were sent to local pharmacy so patient will have his medications. The Hospitalist talked to the about the Medication questions and that Pulmonary is holding
off with the Trilogy machine.
PETRA will see the patient for first visit despite no PCP at this time. Transport arranged for 16:00 and is picking up the portable oxygen tanks from his hospital room JULIANN brown here aware. To ensure the information is all shared due to so
many task and arrangements with this patient, all this was shared with patient's sister. PLAN: Home with PETRA, [facility].
== END 2025-01-23 16:33 | disposition home health service (06) | DRG 193 ==
LOC: IMU 21:03
PROVIDERS: Clinical Nurse Specialist Family Health; Emergency Medicine; Internal Medicine; Internal Medicine Cardiovascular Disease; Registered Nurse; ADMITTING PHYSICIAN Hospitalist; ATTENDING PHYSICIAN Internal Medicine; CONSULT PHYSICIAN Internal Medicine; CONSULT PHYSICIAN Internal Medicine Gastroenterology; EMERGENCY PHYSICIAN Emergency Medicine; OTHER PHYSICIAN Student in an Organized Health Care Education/Training Program
PROC: 5A09357 Assistance with Respiratory Ventilation, Less than 24 Consecutive Hours, Continuous Positive Airway Pressure (ICD-10-PCS; 2025-01-17)
PROC: 4A023N6 Measurement of Cardiac Sampling and Pressure, Right Heart, Percutaneous Approach (ICD-10-PCS; 2025-01-21)
DX: J18.9 Pneumonia, unspecified organism (principal); I50.31 Acute diastolic (congestive) heart failure; J96.21 Acute and chronic respiratory failure with hypoxia; E87.3 Alkalosis; J98.11 Atelectasis; E22.2 Syndrome of inappropriate secretion of antidiuretic hormone; I11.0 Hypertensive heart disease with heart failure; I25.10 Atherosclerotic heart disease of native coronary artery without angina pectoris; K76.0 Fatty (change of) liver, not elsewhere classified; I27.20 Pulmonary hypertension, unspecified; I50.811 Acute right heart failure; R73.9 Hyperglycemia, unspecified; J43.9 Emphysema, unspecified; I35.8 Other nonrheumatic aortic valve disorders; G47.33 Obstructive sleep apnea (adult) (pediatric); K59.00 Constipation, unspecified; E78.00 Pure hypercholesterolemia, unspecified; I48.0 Paroxysmal atrial fibrillation; M41.84 Other forms of scoliosis, thoracic region; I27.81 Cor pulmonale (chronic); E87.5 Hyperkalemia; G89.29 Other chronic pain; T38.0X5A Adverse effect of glucocorticoids and synthetic analogues, initial encounter; Y92.239 Unspecified place in hospital as the place of occurrence of the external cause; Z99.81 Dependence on supplemental oxygen; Z87.891 Personal history of nicotine dependence; Z88.6 Allergy status to analgesic agent; Z79.899 Other long term (current) drug therapy; Z11.52 Encounter for screening for COVID-19
CPT/HCPCS: 71045; 71275; 74177; 80048; 80053; 82805; 83036; 83605; 83690; 83735; 83880; 84145; 84484; 85025; 85027; 85379; 85730; 87040; 87502; 87811; 93005; 93306; 93451; 93970; 94640; 94660; 94761; 96374; 96375; 97110; 97116; 97163; 97167; 97530; 97535; 99285; C1894; Q9967

== ENCOUNTER → 2025-02-21 17:00 | Outpatient (REF) | payer MEDICARE, SELFPAY ==
[2025-02-21 17:47] LABS: Blood Urea Nitrogen 22 mg/dl (9-20); Calcium 9.7 mg/dl (8.4-10.2); Chloride 93 mmol/L (98-107); Glucose 99 mg/dl (70-99); Potassium 3.9 mmol/L (3.5-5.1); Sodium 141 mmol/L (135-145); eGFR > 60.00
[2025-02-21 17:55] LABS: Carbon Dioxide 40 mmol/L (22-30)
== END ==
LOC: CLAB 17:00
PROVIDERS: ATTENDING PHYSICIAN Nurse Practitioner; FAMILY PHYSICIAN Internal Medicine
DX: I50.32 Chronic diastolic (congestive) heart failure (principal)
CPT/HCPCS: 36415; 80048